=== PATIENT | female | born 1995 | race Caucasian/White ===

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

== ENCOUNTER 2019-10-20 22:36 | Inpatient (IN) | payer OTHER ==
[2019-10-20] MEDS ORDERED: SODIUM CHLORIDE 0.9% 1,000 ML IV STA ×2 (23:13→23:40)
[2019-10-20] MEDS ORDERED: ONDANSETRON 4 MG/2 ML VIAL IVP STA (23:13)
[2019-10-20] MEDS ORDERED: MORPHINE SULFATE 4 MG/ML SYRINGE IVP STA (23:15)
[2019-10-20 23:19] LABS: Glucose,Whole Blood 139 mg/dL (75-99)
[2019-10-20 23:26] LABS: Basophils # (A) 0.1 k/uL (0-0.2); Basophils % (A) 0 %; Eosinophils # (A) 0.1 k/uL (0-0.7); Eosinophils % (A) 0 %; HCT 45.8 % (34.0-46.0); HGB 14.7 gm/dL (11.4-16.0); Lymphocytes # (A) 2.2 k/uL (1.0-4.8); Lymphocytes % (A) 13 %; MCH 28.9 pg (25.0-35.0); MCV 90.1 fL (80.0-100.0); Mean Platelet Volume 8.1; Monocytes # (A) 0.6 k/uL (0-1.0); Monocytes % (A) 4 %; Neutrophils # (A) 13.1 k/uL (1.3-7.7); Neutrophils % (A) 80 %; Platelet Count 372 k/uL (150-450); RBC 5.08 m/uL (3.80-5.40); RDW 14.4 % (11.5-15.5); WBC 16.4 k/uL (3.8-10.6)
--- NOTE | 2019-10-20 23:26 | ED ---
General Adult HPI - General Source: patient, family Mode of arrival: ambulatory Limitations: no limitations <Moses Topete - Last Filed: 10/21/19 00:16> <Carlyle Trejo - Last Filed: 10/24/19 05:05> - General Chief complaint: Nausea/Vomiting/Diarrhea Stated complaint: vomiting Time Seen by Provider: 10/20/19 23:04 - History of Present Illness Initial comments: Patient is a 23-year-old female presenting to the emergency department with a chief complaint of abdominal pain. Patient reports ongoing epigastric abdominal pain for the past several months. Patient reports she saw her primary care who ordered an ultrasound of the abdomen but is yet to be performed. Patient reports typically her pain comes on and off in the epigastric region but today has been constant with continuous nausea and multiple episodes of vomiting. States she has been having difficulty keeping food down over the last several we eks. Denies any urinary or vaginal symptoms. Denies any diarrhea. Denies hematuria, hematochezia or melena. She is not aware if the pain is related to by mouth intake. (Moses Topete) - Related Data Home Medications Medication Instructions Recorded Confirmed Ergocalciferol [Vitamin D2] 50,000 unit PO Q7D 10/21/19 10/21/19 Escitalopram [Lexapro] 10 mg PO DAILY 10/21/19 10/21/19 Norgestimate-Ethinyl Estradiol 1 tab PO DAILY 10/21/19 10/21/19 [Tri-Sprintec Tablet] Omeprazole [PriLOSEC] 40 mg PO DAILY 10/21/19 10/21/19 Allergies Allergy/AdvReac Type Severity Reaction Status Date / Time No Known Allergies Allergy Verified 10/21/19 08:46 Review of Systems ROS Other: All systems not noted in ROS Statement are negative. <Moses Topete - Last Filed: 10/21/19 00:16> ROS Other: All systems not noted in ROS Statement are negative. <Carlyle Trejo - Last Filed: 10/24/19 05:05> ROS Statement: Those systems with pertinent positive or pertinent negative responses have been documented in the HPI. Past Medical History Past Medical History: No Reported History History of Any Multi-Drug Resistant Organisms: None Reported Past Surgical History: No Surgical Hx Reported Past Psychological History: No Psychological Hx Reported Smoking Status: Never smoker Past Alcohol Use History: None Reported Past Drug Use History: None Reported <Moses Topete - Last Filed: 10/21/19 00:16> General Exam Limitations: no limitations General appearance: alert, in no apparent distress Head exam: Present: atraumatic, normocephalic, normal inspection Eye exam: Present: normal appearance, PERRL, EOMI Pupils: Present: normal accommodation Neck exam: Present: normal inspection, full ROM Respiratory exam: Present: normal lung sounds bilaterally Cardiovascular Exam: Present: regular rate, normal rhythm, normal heart sounds GI/Abdominal exam: Present: soft, tenderness (Right upper quadrant abdominal pain). Absent: distended, guarding Extremities exam: Present: normal inspection, full ROM Back exam: Present: normal inspection, full ROM. Absent: CVA tenderness (R), CVA tenderness (L) Neurological exam: Present: alert, oriented X3 Psychiatric exam: Present: normal affect, normal mood Skin exam: Present: warm, dry, intact, normal color <Moses Topete - Last Filed: 10/21/19 00:16> Course Vital Signs 10/20/19 10/20/19 10/21/19 22:45 23:49 00:56 Temperature 98.4 F 98 F Pulse Rate 74 76 80 Respiratory 18 18 16 Rate Blood Pressure 154/99 138/68 129/81 O2 Sat by Pulse 99 99 99 Oximetry EKG Findings - EKG Comments: EKG Findings:: Sinus arrhythmia. Ventricular rate 89, NH 134, QRS 76, QTc 442. <Moses Topete - Last Filed: 10/21/19 00:16> Medical Decision Making - Lab Data Result diagrams: 10/20/19 23:09 10/20/19 23:09 <Moses Topete - Last Filed: 10/21/19 00:16> - Lab Data Result diagrams: 10/22/19 09:49 10/23/19 09:45 <Carlyle Trejo - Last Filed: 10/24/19 05:05> - Medical Decision Making Patient is a 23-year-old female presenting to emergency Department with a chief complaint of abdominal pain. Physical examination patient appear to be in mild distress with nausea and multiple episodes of vomiting. On exam patient does appear to have right upper quadrant epigastric tenderness but a negative Roberts sign. CBC shows leukocytosis. Patient does have a lactate of 5.0 which is suspect is secondary to the multiple episodes of vomiting. She is not able to keep any fluids down. Dry mucous membranes. CMP shows elevated liver enzymes. Ultrasound shows mild gallbladder wall thickening along with multiple large gallstones. Common bile duct thickening also noted but no obvious obstruction. Patient given 1 g or Rocephin, fluids, antiemetics and analgesia. On reevaluation patient reports improvement in symptoms. Case discussed with . Medical physician is Dr.Morey RAHMAN on consult. (Moses Topete) I saw this patient in conjunction with the physician triage assistant. I performed independent history and physical exam. Agree with case management. (Carlyle Trejo) - Lab Data Lab Results 10/20/19 10/20/19 10/20/19 Range/Units 23:08 23:09 23:09 WBC 16.4 H (3.8-10.6) k/uL RBC 5.08 (3.80-5.40) m/uL Hgb 14.7 (11.4-16.0) gm/dL Hct 45.8 (34.0-46.0) % MCV 90.1 (80.0-100.0) fL MCH 28.9 (25.0-35.0) pg MCHC 32.0 (31.0-37.0) g/dL RDW 14.4 (11.5-15.5) % Plt Count 372 (150-450) k/uL Neutrophils % 80 % Lymphocytes % 13 % Monocytes % 4 % Eosinophils % 0 % Basophils % 0 % Neutrophils # 13.1 H (1.3-7.7) k/uL Lymphocytes # 2.2 (1.0-4.8) k/uL Monocytes # 0.6 (0-1.0) k/uL Eosinophils # 0.1 (0-0.7) k/uL Basophils # 0.1 (0-0.2) k/uL PT (9.0-12.0) sec INR (<1.2) APTT (22.0-30.0) sec Sodium 139 (137-145) mmol/L Potassium 3.9 (3.5-5.1) mmol/L Chloride 106 (98-107) mmol/L Carbon Dioxide 16 L (22-30) mmol/L Anion Gap 17 mmol/L BUN 5 L (7-17) mg/dL Creatinine 0.65 (0.52-1.04) mg/dL Est GFR (CKD-EPI)AfAm >90 (>60 ml/min/1.73 sqM) Est GFR (CKD-EPI)NonAf >90 (>60 ml/min/1.73 sqM) Glucose 142 H (74-99) mg/dL POC Glucose (mg/dL) 139 H (75-99) mg/dL POC Glu Elderly Sitter ID Giselle Solorzano Lactic Ac Sepsis Rflx Plasma Lactic Acid Luis (0.7-2.0) mmol/L Calcium 10.5 H (8.4-10.2) mg/dL Total Bilirubin 0.6 (0.2-1.3) mg/dL AST 79 H (14-36) U/L ALT 104 H (4-34) U/L Alkaline Phosphatase 130 H (38-126) U/L Total Protein 8.6 H (6.3-8.2) g/dL Albumin 4.9 (3.5-5.0) g/dL Lipase 154 (23-300) U/L Urine Color Urine Appearance (Clear) Urine pH (5.0-8.0) Ur Specific [place] (1.001-1.035) Urine Protein (Negative) Urine Glucose (UA) (Negative) Urine Ketones (Negative) Urine Blood (Negative) Urine Nitrite (Negative) Urine Bilirubin (Negative) Urine Urobilinogen (<2.0) mg/dL Ur Leukocyte Esterase (Negative) Urine RBC (0-5) /hpf Urine WBC (0-5) /hpf Ur Squamous Epith Cells (0-4) /hpf Urine Bacteria (None) /hpf Urine Mucus (None) /hpf Urine HCG, Qual (Not Detectd) Coronavirus (PCR) (Not Detectd) Heterophile Antibody (Negative) 10/20/19 10/20/19 10/20/19 Range/Units 23:09 23:09 23:09 WBC (3.8-10.6) k/uL RBC (3.80-5.40) m/uL Hgb (11.4-16.0) gm/dL Hct (34.0-46.0) % MCV (80.0-100.0) fL MCH (25.0-35.0) pg MCHC (31.0-37.0) g/dL RDW (11.5-15.5) % Plt Count (150-450) k/uL Neutrophils % % Lymphocytes % % Monocytes % % Eosinophils % % Basophils % % Neutrophils # (1.3-7.7) k/uL Lymphocytes # (1.0-4.8) k/uL Monocytes # (0-1.0) k/uL Eosinophils # (0-0.7) k/uL Basophils # (0-0.2) k/uL PT 9.4 (9.0-12.0) sec INR 0.9 (<1.2) APTT 20.6 L (22.0-30.0) sec Sodium (137-145) mmol/L Potassium (3.5-5.1) mmol/L Chloride (98-107) mmol/L Carbon Dioxide (22-30) mmol/L Anion Gap mmol/L BUN (7-17) mg/dL Creatinine (0.52-1.04) mg/dL Est GFR (CKD-EPI)AfAm (>60 ml/min/1.73 sqM) Est GFR (CKD-EPI)NonAf (>60 ml/min/1.73 sqM) Glucose (74-99) mg/dL POC Glucose (mg/dL) (75-99) mg/dL POC Glu Elderly Sitter ID Lactic Ac Sepsis Rflx Plasma Lactic Acid Luis 5.0 H* (0.7-2.0) mmol/L Calcium (8.4-10.2) mg/dL Total Bilirubin (0.2-1.3) mg/dL AST (14-36) U/L ALT (4-34) U/L Alkaline Phosphatase (38-126) U/L Total Protein (6.3-8.2) g/dL Albumin (3.5-5.0) g/dL Lipase (23-300) U/L Urine Color Urine Appearance (Clear) Urine pH (5.0-8.0) Ur Specific [place] (1.001-1.035) Urine Protein (Negative) Urine Glucose (UA) (Negative) Urine Ketones (Negative) Urine Blood (Negative) Urine Nitrite (Negative) Urine Bilirubin (Negative) Urine Urobilinogen (<2.0) mg/dL Ur Leukocyte Esterase (Negative) Urine RBC (0-5) /hpf Urine WBC (0-5) /hpf Ur Squamous Epith Cells (0-4) /hpf Urine Bacteria (None) /hpf Urine Mucus (None) /hpf Urine HCG, Qual (Not Detectd) Coronavirus (PCR) (Not Detectd) Heterophile Antibody Negative (Negative) 10/20/19 10/21/19 10/21/19 Range/Units 23:37 00:21 00:21 WBC (3.8-10.6) k/uL RBC (3.80-5.40) m/uL Hgb (11.4-16.0) gm/dL Hct (34.0-46.0) % MCV (80.0-100.0) fL MCH (25.0-35.0) pg MCHC (31.0-37.0) g/dL RDW (11.5-15.5) % Plt Count (150-450) k/uL Neutrophils % % Lymphocytes % % Monocytes % % Eosinophils % % Basophils % % Neutrophils # (1.3-7.7) k/uL Lymphocytes # (1.0-4.8) k/uL Monocytes # (0-1.0) k/uL Eosinophils # (0-0.7) k/uL Basophils # (0-0.2) k/uL PT (9.0-12.0) sec INR (<1.2) APTT (22.0-30.0) sec Sodium (137-145) mmol/L Potassium (3.5-5.1) mmol/L Chloride (98-107) mmol/L Carbon Dioxide (22-30) mmol/L Anion Gap mmol/L BUN (7-17) mg/dL Creatinine (0.52-1.04) mg/dL Est GFR (CKD-EPI)AfAm (>60 ml/min/1.73 sqM) Est GFR (CKD-EPI)NonAf (>60 ml/min/1.73 sqM) Glucose (74-99) mg/dL POC Glucose (mg/dL) (75-99) mg/dL POC Glu Elderly Sitter ID Lactic Ac Sepsis Rflx Y Plasma Lactic Acid Luis (0.7-2.0) mmol/L Calcium (8.4-10.2) mg/dL Total Bilirubin (0.2-1.3) mg/dL AST (14-36) U/L ALT (4-34) U/L Alkaline Phosphatase (38-126) U/L Total Protein (6.3-8.2) g/dL Albumin (3.5-5.0) g/dL Lipase (23-300) U/L Urine Color Yellow Urine Appearance Cloudy H (Clear) Urine pH 7.0 (5.0-8.0) Ur Specific [place] 1.012 (1.001-1.035) Urine Protein Trace H (Negative) Urine Glucose (UA) Negative (Negative) Urine Ketones 2+ H (Negative) Urine Blood Trace H (Negative) Urine Nitrite Positive H (Negative) Urine Bilirubin Negative (Negative) Urine Urobilinogen <2.0 (<2.0) mg/dL Ur Leukocyte Esterase Trace H (Negative) Urine RBC 1 (0-5) /hpf Urine WBC 4 (0-5) /hpf Ur Squamous Epith Cells 5 H (0-4) /hpf Urine Bacteria Rare H (None) /hpf Urine Mucus Few H (None) /hpf Urine HCG, Qual Not Detected (Not Detectd) Coronavirus (PCR) (Not Detectd) Heterophile Antibody (Negative) 10/21/19 10/21/19 Range/Units 00:34 00:41 WBC (3.8-10.6) k/uL RBC (3.80-5.40) m/uL Hgb (11.4-16.0) gm/dL Hct (34.0-46.0) % MCV (80.0-100.0) fL MCH (25.0-35.0) pg MCHC (31.0-37.0) g/dL RDW (11.5-15.5) % Plt Count (150-450) k/uL Neutrophils % % Lymphocytes % % Monocytes % % Eosinophils % % Basophils % % Neutrophils # (1.3-7.7) k/uL Lymphocytes # (1.0-4.8) k/uL Monocytes # (0-1.0) k/uL Eosinophils # (0-0.7) k/uL Basophils # (0-0.2) k/uL PT (9.0-12.0) sec INR (<1.2) APTT (22.0-30.0) sec Sodium (137-145) mmol/L Potassium (3.5-5.1) mmol/L Chloride (98-107) mmol/L Carbon Dioxide (22-30) mmol/L Anion Gap mmol/L BUN (7-17) mg/dL Creatinine (0.52-1.04) mg/dL Est GFR (CKD-EPI)AfAm (>60 ml/min/1.73 sqM) Est GFR (CKD-EPI)NonAf (>60 ml/min/1.73 sqM) Glucose (74-99) mg/dL POC Glucose (mg/dL) (75-99) mg/dL POC Glu Elderly Sitter ID Lactic Ac Sepsis Rflx Plasma Lactic Acid Luis 1.4 (0.7-2.0) mmol/L Calcium (8.4-10.2) mg/dL Total Bilirubin (0.2-1.3) mg/dL AST (14-36) U/L ALT (4-34) U/L Alkaline Phosphatase (38-126) U/L Total Protein (6.3-8.2) g/dL Albumin (3.5-5.0) g/dL Lipase (23-300) U/L Urine Color Urine Appearance (Clear) Urine pH (5.0-8.0) Ur Specific [place] (1.001-1.035) Urine Protein (Negative) Urine Glucose (UA) (Negative) Urine Ketones (Negative) Urine Blood (Negative) Urine Nitrite (Negative) Urine Bilirubin (Negative) Urine Urobilinogen (<2.0) mg/dL Ur Leukocyte Esterase (Negative) Urine RBC (0-5) /hpf Urine WBC (0-5) /hpf Ur Squamous Epith Cells (0-4) /hpf Urine Bacteria (None) /hpf Urine Mucus (None) /hpf Urine HCG, Qual (Not Detectd) Coronavirus (PCR) Not Detected (Not Detectd) Heterophile Antibody (Negative) Disposition Is patient prescribed a controlled substance at d/c from ED?: No Time of Disposition: 00:34 <Moses Topete - Last Filed: 10/21/19 00:16> <Carlyle Trejo - Last Filed: 10/24/19 05:05> Clinical Impression: Cholecystitis, Cholelithiasis Disposition: ADMITTED IP TO THIS HOSP Condition: Stable
[2019-10-20 23:33] LABS: ALT 104 U/L (4-34); AST 79 U/L (14-36); African American GFR (CKD) >90 (>60 ml/min/1.73 sqM); Albumin 4.9 g/dL (3.5-5.0); Alkaline Phosphatase 130 U/L (38-126); Anion Gap 17 mmol/L; Blood Urea Nitrogen 5 mg/dL (7-17); Calcium 10.5 mg/dL (8.4-10.2); Carbon Dioxide 16 mmol/L (22-30); Chloride 106 mmol/L (98-107); Glucose 142 mg/dL (74-99); Non-African American GFR(CKD) >90 (>60 ml/min/1.73 sqM); Potassium 3.9 mmol/L (3.5-5.1); Sodium 139 mmol/L (137-145); Total Bilirubin 0.6 mg/dL (0.2-1.3); Total Protein 8.6 g/dL (6.3-8.2)
[2019-10-20] MEDS ORDERED: cefTRIAXone IN SWFI 1,000 MG/10 ML SYRINGE IVP STA (23:41)
--- NOTE | 2019-10-21 00:05 | US ---
EXAMINATION TYPE: US abdomen limited DATE OF EXAM: 10/20/2019 COMPARISON: NONE CLINICAL HISTORY: r/o cholecystitis, nausea and vomiting EXAM MEASUREMENTS: Liver Length: 12.5 cm Gallbladder Wall: 0.5 cm CBD: 1.5 cm Right Kidney: 11.0 x 3.9 x 4.2 cm Pancreas: Obscured by bowel gas Liver: wnl Gallbladder: cholelithiasis, wall thickening Evidence for sonographic Roberts's sign: no CBD: grossly dilated Right Kidney: wnl IMPRESSION: There are numerous large gallstones. Mild gallbladder wall thickening suggestive of joslyn cystitis. Dilated common bile duct but no significant dilation of the intrahepatic bile ducts. This i s more consistent with chronic gallbladder dysfunction. Distal common bile duct obstruction not entir wilian excluded.
[2019-10-21 00:36] LABS: Appearance,Urine Cloudy (Clear); Bacteria,Urine Rare /hpf; Bilirubin,Urine Negative (Negative); Blood,Urine Trace (Negative); Color,Urine Yellow; Glucose,Urine (UA) Negative (Negative); Ketones,Urine 2+ (Negative); Leukocyte Esterase,Urine Trace (Negative); Mucus,Urine Few /hpf; Nitrite,Urine Positive (Negative); Protein,Urine Trace (Negative); RBC,Urine 1 /hpf (0-5); Specific Gravity,Urine 1.012 (1.001-1.035); Squamous Epithelial Cell,Urine 5 /hpf (0-4); Urobilinogen,Urine <2.0 mg/dL (<2.0); WBC,Urine 4 /hpf (0-5)
[2019-10-21] MEDS ORDERED: NALOXONE 0.4 MG/ML 1 ML VIAL IV PRN (00:37)
[2019-10-21] MEDS: SODIUM CHLORIDE 0.9% 1,000 ML IV SCH (00:45)
[2019-10-21 00:50] LABS: INR 0.9 (<1.2); Prothrombin Time 9.4 sec (9.0-12.0)
[2019-10-21 01:13] LABS: Partial Thromboplastin Time 20.6 sec (22.0-30.0)
[2019-10-21] MEDS: MORPHINE SULFATE 4 MG/ML SYRINGE IV PRN ×4 (02:04→20:50)
--- NOTE | 2019-10-21 10:24 | P.GSHP ---
History of Present Illness H&P Date: 10/21/19 Chief Complaint: Abdominal pain, nausea and vomiting The patient is a 23-year-old female that's been having intermittent abdominal discomfort and chest pressure for the last several months.She will get pressure in her chest when this happens. Yesterday she began having severe nausea and vomiting and was unable to keep anything down. She admits to episodes where family members have noticed that her eyes are yellow. She will also admit to tea-colored urine.Denies blood in the stool or dark tarry stool. Denies fever or chills. Denies family history of biliary disease. - Review of Systems All systems: negative Past Medical History Past Medical History: No Reported History History of Any Multi-Drug Resistant Organisms: None Reported Past Surgical History: No Surgical Hx Reported Additional Past Surgical History / Comment(s): ureter stent placed for obstruction Past Anesthesia/Blood Transfusion Reactions: No Reported Reaction Past Psychological History: No Psychological Hx Reported Smoking Status: Never smoker Past Alcohol Use History: None Reported Past Drug Use History: None Reported Medications and Allergies Home Medications Medication Instructions Recorded Confirmed Type Ergocalciferol [Vitamin D2] 50,000 unit PO Q7D 10/21/19 10/21/19 History Escitalopram [Lexapro] 10 mg PO DAILY 10/21/19 10/21/19 History Norgestimate-Ethinyl Estradiol 1 tab PO DAILY 10/21/19 10/21/19 History [Tri-Sprintec Tablet] Omeprazole [PriLOSEC] 40 mg PO DAILY 10/21/19 10/21/19 History Allergies Allergy/AdvReac Type Severity Reaction Status Date / Time No Known Allergies Allergy Verified 10/21/19 08:46 Surgical - Exam Osteopathic Statement: *. No significant issues noted on an osteopathic structural exam other than those noted in the History and Physical/Consult. Vital Signs Temp Pulse Resp BP Pulse Ox 98.4 F 74 18 154/99 99 10/20/19 22:45 10/20/19 22:45 10/20/19 22:45 10/20/19 22:45 10/20/19 22:45 - General well developed, well nourished, no distress - Eyes normal ocular movement, no icteric - Respiratory normal expansion, normal respiratory effort, clear to auscultation - Cardiovascular Rhythm: regular - Abdomen Abdomen: soft, non tender, bowel sounds, no guarding, no rebound, no distended Results - Labs 10/20/19 23:09 10/20/19 23:09 Abnormal Lab Results - Last 24 Hours (Table) 10/20/19 10/20/19 10/20/19 Range/Units 23:08 23:09 23:09 WBC 16.4 H (3.8-10.6) k/uL Neutrophils # 13.1 H (1.3-7.7) k/uL APTT (22.0-30.0) sec Carbon Dioxide 16 L (22-30) mmol/L BUN 5 L (7-17) mg/dL Glucose 142 H (74-99) mg/dL POC Glucose (mg/dL) 139 H (75-99) mg/dL Plasma Lactic Acid Luis (0.7-2.0) mmol/L Calcium 10.5 H (8.4-10.2) mg/dL AST 79 H (14-36) U/L ALT 104 H (4-34) U/L Alkaline Phosphatase 130 H (38-126) U/L Total Protein 8.6 H (6.3-8.2) g/dL Urine Appearance (Clear) Urine Protein (Negative) Urine Ketones (Negative) Urine Blood (Negative) Urine Nitrite (Negative) Ur Leukocyte Esterase (Negative) Ur Squamous Epith Cells (0-4) /hpf Urine Bacteria (None) /hpf Urine Mucus (None) /hpf 10/20/19 10/20/19 10/21/19 Range/Units 23:09 23:09 00:21 WBC (3.8-10.6) k/uL Neutrophils # (1.3-7.7) k/uL APTT 20.6 L (22.0-30.0) sec Carbon Dioxide (22-30) mmol/L BUN (7-17) mg/dL Glucose (74-99) mg/dL POC Glucose (mg/dL) (75-99) mg/dL Plasma Lactic Acid Luis 5.0 H* (0.7-2.0) mmol/L Calcium (8.4-10.2) mg/dL AST (14-36) U/L ALT (4-34) U/L Alkaline Phosphatase (38-126) U/L Total Protein (6.3-8.2) g/dL Urine Appearance Cloudy H (Clear) Urine Protein Trace H (Negative) Urine Ketones 2+ H (Negative) Urine Blood Trace H (Negative) Urine Nitrite Positive H (Negative) Ur Leukocyte Esterase Trace H (Negative) Ur Squamous Epith Cells 5 H (0-4) /hpf Urine Bacteria Rare H (None) /hpf Urine Mucus Few H (None) /hpf Diabetes panel 10/20/19 Range/Units 23:09 Sodium 139 (137-145) mmol/L Potassium 3.9 (3.5-5.1) mmol/L Chloride 106 (98-107) mmol/L Carbon Dioxide 16 L (22-30) mmol/L BUN 5 L (7-17) mg/dL Creatinine 0.65 (0.52-1.04) mg/dL Glucose 142 H (74-99) mg/dL Calcium 10.5 H (8.4-10.2) mg/dL AST 79 H (14-36) U/L ALT 104 H (4-34) U/L Alkaline Phosphatase 130 H (38-126) U/L Total Protein 8.6 H (6.3-8.2) g/dL Albumin 4.9 (3.5-5.0) g/dL Calcium panel 10/20/19 Range/Units 23:09 Calcium 10.5 H (8.4-10.2) mg/dL Albumin 4.9 (3.5-5.0) g/dL Pituitary panel 10/20/19 Range/Units 23:09 Sodium 139 (137-145) mmol/L Potassium 3.9 (3.5-5.1) mmol/L Chloride 106 (98-107) mmol/L Carbon Dioxide 16 L (22-30) mmol/L BUN 5 L (7-17) mg/dL Creatinine 0.65 (0.52-1.04) mg/dL Glucose 142 H (74-99) mg/dL Calcium 10.5 H (8.4-10.2) mg/dL Adrenal panel 10/20/19 Range/Units 23:09 Sodium 139 (137-145) mmol/L Potassium 3.9 (3.5-5.1) mmol/L Chloride 106 (98-107) mmol/L Carbon Dioxide 16 L (22-30) mmol/L BUN 5 L (7-17) mg/dL Creatinine 0.65 (0.52-1.04) mg/dL Glucose 142 H (74-99) mg/dL Calcium 10.5 H (8.4-10.2) mg/dL Total Bilirubin 0.6 (0.2-1.3) mg/dL AST 79 H (14-36) U/L ALT 104 H (4-34) U/L Alkaline Phosphatase 130 H (38-126) U/L Total Protein 8.6 H (6.3-8.2) g/dL Albumin 4.9 (3.5-5.0) g/dL - Imaging US - abdomen: report reviewed Assessment and Plan (1) History of jaundice Current Visit: Yes Status: Acute Code(s): Z87.898 - PERSONAL HISTORY OF OTHER SPECIFIED CONDITIONS SNOMED Code(s): 251940481 (2) Cholecystitis Current Visit: Yes Status: Acute Code(s): K81.9 - CHOLECYSTITIS, UNSPECIFIED SNOMED Code(s): 91488197 (3) Cholelithiasis Current Visit: Yes Status: Acute Code(s): K80.20 - CALCULUS OF GALLBLADDER W/O CHOLECYSTITIS W/O OBSTRUCTION SNOMED Code(s): 462435260 Plan: The patient likely has been having intermittent choledocholithiasis. Her common bile duct is dilated but her bilirubin yesterday was normal. Get a GI consult to see whether she should have a preoperative MRCP or ERCP. Otherwise I would do a laparoscopic cholecystectomy with intraoperative cholangiogram. Further recommendations to follow.
[2019-10-21] MEDS: ONDANSETRON 4 MG/2 ML VIAL IVP PRN (11:00)
[2019-10-21] MEDS ORDERED: TRIMETHOBENZAMIDE 100 MG/ML 2 ML VIAL IM PRN (19:26)
--- NOTE | 2019-10-21 19:39 | P.CONS ---
History of Present Illness - Reason for Consult Consult date: 10/21/19 Abdominal pain, dilated common bile duct Requesting physician: Samreen Chavez - Chief Complaint Abdominal pain - History of Present Illness Pleasant 23-year-old female with a medical history significant for reflux in the past who presented due to abdominal discomfort and chest pressure. She reports that the pain has been going on for the past 4 months. It occurs in the ep igastric region of her abdomen and will last all day when it occurs she describes it as sharp and worse in the morning and with eating. She denies any change in bowel habits. She had ultrasound on presentation with findings of colon wall thickening, gallstones and a markedly dilated common bile duct at 1.5 cm. Liver enzymes were only mildly elevated with total bilirubin 0.6, alkaline phosphatase 130, AST 79 and ALT 104. Review of Systems REVIEW OF SYSTEMS: CONSTITUTIONAL: Denies any fevers, chills, weight change or fatigue. CARDIOVASCULAR: Denies any chest pain, palpitations high or low blood pressures RESPIRATORY: Denies any shortness of breath, hemoptysis or cough. GENITOURINARY: No dysuria or hematuria. MUSCULOSKELETAL: No weakness reported. SKIN: Denies any new rashes or lesions, jaundice or pallor. PSYCHIATRIC: Denies any depression or anxiety. NEUROLOGY: Denies headache, denies any new focal deficits. EARS/NOSE/THROAT: No recent hearing change, congestion, nasal discharge or sore throat. EYES: No pain in eyes, discharge or change in vision. GASTROINTESTINAL: As per HPI. Past Medical History Past Medical History: No Reported History Additional Past Medical History / Comment(s): GERD History of Any Multi-Drug Resistant Organisms: None Reported Past Surgical History: No Surgical Hx Reported Additional Past Surgical History / Comment(s): ureter stent placed for o bstruction Past Anesthesia/Blood Transfusion Reactions: No Reported Reaction Past Psychological History: No Psychological Hx Reported Smoking Status: Never smoker Past Alcohol Use History: None Reported Past Drug Use History: None Reported Additional History: Family history: Reviewed with the patient noncontributory to current medical presentation Medications and Allergies Home Medications Medication Instructions Recorded Confirmed Type Ergocalciferol [Vitamin D2] 50,000 unit PO Q7D 10/21/19 10/21/19 History Escitalopram [Lexapro] 10 mg PO DAILY 10/21/19 10/21/19 History Norgestimate-Ethinyl Estradiol 1 tab PO DAILY 10/21/19 10/21/19 History [Tri-Sprintec Tablet] Omeprazole [PriLOSEC] 40 mg PO DAILY 10/21/19 10/21/19 History Allergies Allergy/AdvReac Type Severity Reaction Status Date / Time No Known Allergies Allergy Verified 10/21/19 08:46 Physical Exam Vitals: Vital Signs Temp Pulse Pulse Resp BP BP Pulse Ox 10/21/19 04:15 98.5 F 71 12 124/74 97 10/21/19 04:01 16 10/21/19 00:56 98 F 80 16 129/81 99 10/20/19 23:49 76 18 138/68 99 10/20/19 22:45 98.4 F 74 18 154/99 99 Intake and Output 10/20/19 10/21/19 10/21/19 22:59 06:59 14:59 Output Total 300 Balance -300 Output: Urine 100 Emesis 200 Other: Voiding Method Toilet # Voids 1 Weight 63.503 kg 63.503 kg On physical examination, patient appears comfortable in no apparent distress. HEAD: Normocephalic, atraumatic. EYES: No scleral icterus. No conjunctival injection. MOUTH: No lesions, tongue midline. NECK: Trachea midline, no gross abnormalities. CHEST: Clear to auscultation with no wheezing or rhonchi appreciated. HEART: Regular rate and rhythm. ABDOMEN: Soft, mildly tender to palpation. Bowel sounds are positive. No organomegaly. No guarding or rigidity. EXTREMITIES: No pedal edema. SKIN: No rashes, no jaundice. NEUROLOGIC: Alert and oriented x3. No focal deficits. Results CBC & Chem 7: 10/20/19 23:09 10/20/19 23:09 Labs: Abnormal Lab Results - Last 24 Hours (Table) 10/20/19 10/20/19 10/20/19 Range/Units 23:08 23:09 23:09 WBC 16.4 H (3.8-10.6) k/uL Neutrophils # 13.1 H (1.3-7.7) k/uL APTT (22.0-30.0) sec Carbon Dioxide 16 L (22-30) mmol/L BUN 5 L (7-17) mg/dL Glucose 142 H (74-99) mg/dL POC Glucose (mg/dL) 139 H (75-99) mg/dL Plasma Lactic Acid Luis (0.7-2.0) mmol/L Calcium 10.5 H (8.4-10.2) mg/dL AST 79 H (14-36) U/L ALT 104 H (4-34) U/L Alkaline Phosphatase 130 H (38-126) U/L Total Protein 8.6 H (6.3-8.2) g/dL Urine Appearance (Clear) Urine Protein (Negative) Urine Ketones (Negative) Urine Blood (Negative) Urine Nitrite (Negative) Ur Leukocyte Esterase (Negative) Ur Squamous Epith Cells (0-4) /hpf Urine Bacteria (None) /hpf Urine Mucus (None) /hpf 10/20/19 10/20/19 10/21/19 Range/Units 23:09 23:09 00:21 WBC (3.8-10.6) k/uL Neutrophils # (1.3-7.7) k/uL APTT 20.6 L (22.0-30.0) sec Carbon Dioxide (22-30) mmol/L BUN (7-17) mg/dL Glucose (74-99) mg/dL POC Glucose (mg/dL) (75-99) mg/dL Plasma Lactic Acid Luis 5.0 H* (0.7-2.0) mmol/L Calcium (8.4-10.2) mg/dL AST (14-36) U/L ALT (4-34) U/L Alkaline Phosphatase (38-126) U/L Total Protein (6.3-8.2) g/dL Urine Appearance Cloudy H (Clear) Urine Protein Trace H (Negative) Urine Ketones 2+ H (Negative) Urine Blood Trace H (Negative) Urine Nitrite Positive H (Negative) Ur Leukocyte Esterase Trace H (Negative) Ur Squamous Epith Cells 5 H (0-4) /hpf Urine Bacteria Rare H (None) /hpf Urine Mucus Few H (None) /hpf US - abdomen: report reviewed (Ultrasound of the abdomen with findings of cholelithiasis, gallbladder wall thickening and a 1.5 cm common bile duct) Assessment and Plan (1) Cholelithiasis Narrative/Plan: 23-year-old female who presented to the hospital due to complaints of abdominal pain occurring over the past few months described as severe and in the epigastric region of her abdomen. Liver enzymes only mildly elevated on presentation with a total bilirubin 0.6, alkaline phosphatase 130, AST 79 and ALT 104. She does report that she has intermittently yellowing of skin in the past. Ultrasound of the abdomen showed gallbladder wall thickening, cholelithiasis and a 1.5 cm common bile duct. Plan is for surgical intervention tomorrow with intraoperative cholangiogram. Current Visit: Yes Status: Acute Code(s): K80.20 - CALCULUS OF GALLBLADDER W/O CHOLECYSTITIS W/O OBSTRUCTION SNOMED Code(s): 046056781 (2) Cholecystitis Current Visit: Yes Status: Acute Code(s): K81.9 - CHOLECYSTITIS, UNSPECIFIED SNOMED Code(s): 76004695 (3) History of jaundice Current Visit: Yes Status: Acute Code(s): Z87.898 - PERSONAL HISTORY OF OTHER SPECIFIED CONDITIONS SNOMED Code(s): 689761558 Plan: Supportive care Okay for diet as tolerated Nothing by mouth after midnight Case discussed with the surgical service and plan is for cholecystectomy with intraoperative cholangiogram for evaluation of the common bile duct and to rule out choledocholithiasis Tigan added as needed for breakthrough nausea Toradol added as needed for breakthrough pain Pepcid twice a day added for reflux Thank you for allowing us to participate
[2019-10-21] MEDS: FAMOTIDINE 20 MG/2 ML VIAL IV SCH (20:17)
[2019-10-21] MEDS: KETOROLAC 30 MG/ML 1 ML VIAL IVP PRN (20:19)
[2019-10-22] MEDS: SODIUM CHLORIDE 0.9% 1,000 ML IV SCH ×2 (03:29→20:52)
[2019-10-22] MEDS: MORPHINE SULFATE 4 MG/ML SYRINGE IV PRN ×3 (06:45→21:48)
[2019-10-22] MEDS: ONDANSETRON 4 MG/2 ML VIAL IVP PRN ×2 (07:53→16:41)
[2019-10-22] MEDS: FAMOTIDINE 20 MG/2 ML VIAL IV SCH ×2 (07:53→19:20)
[2019-10-22 09:59] LABS: HCT 42.4 % (34.0-46.0); HGB 13.3 gm/dL (11.4-16.0); MCH 29.1 pg (25.0-35.0); MCHC 31.4 g/dL (31.0-37.0); MCV 92.7 fL (80.0-100.0); Mean Platelet Volume 7.8; Platelet Count 305 k/uL (150-450); RBC 4.57 m/uL (3.80-5.40); RDW 14.6 % (11.5-15.5); WBC 12.9 k/uL (3.8-10.6)
[2019-10-22 10:21] LABS: ALT 192 U/L (4-34); AST 120 U/L (14-36); African American GFR (CKD) >90 (>60 ml/min/1.73 sqM); Albumin 4.4 g/dL (3.5-5.0); Alkaline Phosphatase 85 U/L (38-126); Anion Gap 15 mmol/L; Blood Urea Nitrogen 9 mg/dL (7-17); Calcium 9.6 mg/dL (8.4-10.2); Carbon Dioxide 18 mmol/L (22-30); Chloride 105 mmol/L (98-107); Glucose 62 mg/dL (74-99); Non-African American GFR(CKD) >90 (>60 ml/min/1.73 sqM); Sodium 138 mmol/L (137-145); Total Bilirubin 0.5 mg/dL (0.2-1.3); Total Protein 7.9 g/dL (6.3-8.2)
--- NOTE | 2019-10-22 14:57 | PN ---
PROGRESS NOTE DATE OF DICTATION: 10/22/2019 Patient is a 23-year-old pleasant white female admitted to the hospital with epigastric and right upper quadrant abdominal pain and subsequently diagnosed with gallstones. She was noted to have mild elevation of serum transaminases with AST at 79, ALT 104. Dr. Conner saw her in consultation and the plan was for Dr. Chavez to proceed with gallbladder surgery with intra op cholangiogram today that is scheduled for 1:00 pm the patient in the meantime is doing well. She had an episode of epigastric discomfort with nausea, vomiting. This morning but since then she is doing much better. No labs. She denies any fever, chills, or night sweats. PHYSICAL EXAMINATION: Appears comfortable. VITAL SIGNS: Stable. Blood pressure is 126/84, pulse rate 85, temperature 96.9. HEENT: Examination unremarkable, consulting are pink, sclerae nonicteric.';oral cavity no lesions the auscultation. HEART: Regular rate and rhythm. ABDOMEN: Soft. There was very minimal tenderness in the epigastric area of the abdomen of man. Bowel sounds are positive extremities no pedal edema skin no rashes. NEUROLOGIC: Alert and oriented x3. No focal deficits. LABS: From today AST went up to 120, ALT went up to 192, T bilirubin and alkaline phosphatase are within normal limits. IMPRESSION: 1. This is a lady who was admitted to the hospital with severe epigastric pain associated with nausea, vomiting for the last 2 days' duration. Ultrasound did show evidence of gallstones and mild gallbladder wall thickening suggestive of acute cholecystitis. The patient is scheduled for gallbladder surgery this afternoon with Dr. Chavez. 2. Mild elevation of serum transaminases. Rule out CBD stone. The ultrasound of the abdomen did show mild dilation of the common bile duct. Her serum transaminases slightly increased and at this time possibility of a CBD stone cannot be entirely excluded. RECOMMENDATIONS: 1. Laparoscopic cholecystectomy with cholangiogram and based on the results will consider the patient needs endoscopy intervention at this time. Continue with symptomatic supportive care. 2. Continue with antibiotics. 3. Repeat labs in the morning and will follow with you closely. Thank you for this consultation. MMODL / IJN: [id number] /
[2019-10-22] MEDS ORDERED: LACTATED RINGERS 1,000 ML IV ONE (16:18)
[2019-10-22] MEDS ORDERED: IV FLUID CONTINUATION 1,000 ML IV ONE (16:18)
[2019-10-22] MEDS ORDERED: DEXAMETHASONE SOD PHOS (MDV) 100 MG/10 ML VIAL IVP ONE (16:42)
[2019-10-22] MEDS ORDERED: BUPIVACAIN-EPI 0.25%-1:200,000 30 ML VIAL SQ ONE (17:04)
[2019-10-22] MEDS ORDERED: IOPAMIDOL-370 50ML BTL MISCELLANE ONE (17:23)
--- NOTE | 2019-10-22 17:52 | FL ---
EXAMINATION TYPE: FL cholangiogram operative DATE OF EXAM: 10/22/2019 CLINICAL HISTORY: Acute cholecystitis. TECHNIQUE: Fluoroscopy. COMPARISON: Limited abdominal ultrasound 2 days ago. FINDINGS: Fluoroscopic guidance was provided during intraoperative cholangiogram procedure performed by Dr. Chavez. A total of 26 seconds of fluoroscopic time was utilized during the procedure and 3 sp ot intraoperative images are acquired. Please refer to operative note for further details as I was no t present nor performed procedure IMPRESSION: As Above.
--- NOTE | 2019-10-22 18:03 | P.OP ---
Date of Procedure: 10/22/19 Preoperative Diagnosis: Cholelithiasis, cholecystitis Postoperative Diagnosis: Cholelithiasis, cholecystitis, choledocholithiasis Procedure(s) Performed: Laparoscopic cholecystectomy with intraoperative cholangiogram Anesthesia: SHA Surgeon: Samreen Chavez Estimated Blood Loss (ml): 5 Pathology: other (Gallbladder) Condition: stable Disposition: PACU Indications for Procedure: The patient presented with acute cholecystitis and symptoms suggestive of intermittent choledocholithiasis Operative Findings: Intraoperative cholangiogram showed no significant drainage into the duodenum with 2 distal common bile duct stones. Description of Procedure: The patient was taken the operative suite where she was prepped and draped in the usual sterile manner under general endotracheal anesthetic. An infraumbilical incision was made. The fascia was grasped and incised. The peritoneum was grasped and incised. A finger sweep was carried out. A balloon trocar was inserted and pneumoperitoneum was established with CO2 gas. Sites a re chosen for accessory trochars needs are placed through small skin incisions. The liver, diaphragm, large and small bowel were grossly normal where they were seen. The gallbladder was somewhat edematous. The fundus was grasped and retracted superiorly. Bassam's pouch was grasped and retracted laterally. The cystic duct was dissected free. It was milked medial to lateral. It was then clamped laterally. A small enterotomy was made on the duct and a cholangiogram catheter was placed. An intraoperative cholangiogram was performed. There was filling of the common bile duct and hepatic radicals. Only very small amount of contrast went into the duodenum. On magnified views there appeared to be 2 stones in the distal common bile duct. The cholangiogram catheter was removed. The cystic duct was doubly clipped medially. The duct was then transected and an additional 0 PDS Endoloop was placed on the cystic duct. The cystic artery was then triply clipped and cut. The gallbladder is dissected free from the liver bed. Small bleeding points were controlled with electrocautery. The gallbladder is placed into a specimen retrieval bag. The liver bed is reexamined and noted to be hemostatic. The excess irrigant was suctioned out. The pneumoperitoneum was suctioned out. The trochars were removed. The specimen retrieval bag was removed. The fascia at the umbilicus was closed with 0 Vicryl. The skin incisions were closed with 4-0 Vicryl in a subcuticular manner. Steri-Strips and dressings were applied. She tolerated the procedure without difficulty and was taken recovery room in satisfactory condition. According to or personnel, all counts were correct.
[2019-10-22] MEDS ORDERED: diphenhydrAMINE 50 MG/ML 1 ML VIAL IVP ONE (18:08)
[2019-10-22] MEDS: HYDROmorphone 0.5 MG/0.5 ML SYRINGE IVP ONE ×2 (18:10→18:50)
[2019-10-22] MEDS: diphenhydrAMINE 50 MG/ML 1 ML VIAL IVP ONE ×2 (18:15→18:52)
[2019-10-22] MEDS: KETOROLAC 30 MG/ML 1 ML VIAL IVP PRN (19:25)
[2019-10-23] MEDS: MORPHINE SULFATE 4 MG/ML SYRINGE IV PRN ×4 (01:34→18:53)
[2019-10-23] MEDS: PANTOPRAZOLE 40 MG TABLET PO SCH (08:18)
[2019-10-23] MEDS: NORGESTIMATE ETHINYL ESTRADIOL PO SCH (08:19)
[2019-10-23] MEDS: FAMOTIDINE 20 MG/2 ML VIAL IV SCH ×2 (08:20→20:51)
[2019-10-23 10:08] LABS: ALT 221 U/L (4-34); AST 172 U/L (14-36); African American GFR (CKD) >90 (>60 ml/min/1.73 sqM); Albumin 3.8 g/dL (3.5-5.0); Alkaline Phosphatase 120 U/L (38-126); Anion Gap 10 mmol/L; Blood Urea Nitrogen 4 mg/dL (7-17); Calcium 9.4 mg/dL (8.4-10.2); Carbon Dioxide 21 mmol/L (22-30); Chloride 105 mmol/L (98-107); Glucose 83 mg/dL (74-99); Non-African American GFR(CKD) >90 (>60 ml/min/1.73 sqM); Sodium 136 mmol/L (137-145); Total Bilirubin 0.9 mg/dL (0.2-1.3); Total Protein 7.1 g/dL (6.3-8.2)
[2019-10-23] MEDS ORDERED: INDOMETHACIN 50MG SUPPOSITORY RECTAL ONE (14:00)
[2019-10-23] MEDS ORDERED: LEVOFLOXACIN 500MG-D5W PMX 500 MG in DEXTROSE/WATER 1 100ML.BAG IVPB SCH (14:00)
[2019-10-23] MEDS: ONDANSETRON 4 MG/2 ML VIAL IVP PRN (15:14)
[2019-10-23] MEDS ORDERED: PROPOFOL 10 MG/ML 20 ML VIAL IV ONE (15:25)
[2019-10-23] MEDS ORDERED: fentaNYL (PF) 50 MCG/ML 2 ML AMP ONE (15:25)
[2019-10-23] MEDS ORDERED: MIDAZOLAM 2 MG/2 ML VIAL ONE (15:25)
[2019-10-23] MEDS ORDERED: LIDOCAINE 1% INJ 10MG/ML (20 ML MDV) ONE (15:25)
[2019-10-23] MEDS ORDERED: GLYCOPYRROLATE 0.2 MG/ML 2 ML VIAL ONE (15:25)
[2019-10-23] MEDS ORDERED: KETAMINE 10 MG/ML 20 ML VIAL ONE (15:25)
[2019-10-23] MEDS ORDERED: IV FLUID CONTINUATION 1,000 ML IV ONE (15:28)
[2019-10-23] MEDS ORDERED: IOPAMIDOL-300 50ML BTL MISCELLANE ONE (15:45)
[2019-10-23] MEDS ORDERED: SODIUM CHLORIDE 0.9% 500 ML 500 ML IV ONE (16:00)
--- NOTE | 2019-10-23 16:21 | P.PCN ---
Date of Procedure: 10/23/19 Procedure(s) Performed: Brief history: Patient is a 22 year-old pleasant lady scheduled for an ERCP as part of evaluation of abdominal pain and elevated serum transaminases for the last 2 days' duration. Rest of the gallbladder done that showed gallstones and she underwent laparoscopic cholecystectomy by Dr. Chavez with intraoperative cholangiogram which revealed 2 filling defects in the distal common bile duct. LFTs are slightly elevated. Procedure performed: ERCP with biliary sphincterotomy, balloon stone extraction and cautery Preoperative diagnoses: CBD stones noted on intraoperative cholangiogram IV sedation per anesthesia: Procedure: After informed consent was obtained from the patient and after the risks benefits and complications including bleeding perforation and pancreatitis explained in detail the patient was brought into the endoscopy unit. The patient was placed in prone position and IV conscious sedation was administered by anesthesia under continuous monitoring. The Olympus side-viewing duodenoscope was then inserted into the mouth and esophagus intubated without any difficulty. The scope was gradually advanced into the stomach and duodenum. The major papilla was identified without any difficulty. Initial cannulation resulted in opacification of the common bile duct appeared dilated to 1.5 cm in diameter with a faint filling defect identified. At this time the catheter was exchanged with a guidewire and a biliary sphincterotome was passed over the guidewire into the distal CBD. At this time a biliary sphincterotomy was performed at 12 o'clock position and was extended to almost 1 cm. At this time a 15 mm balloon was passed over the guidewire, into the proximal CBD and inflated. The bulb balloon was gently withdrawn and there was small amount of sludge that was seen exiting the ampulla. I did not see any obvious stones could be extracted. This maneuver was repeated 3 more times and as the balloon was being sleepy across the ampullary orifice there was small amount of oozing identified. Initially done. An Endo Clip placement but was not successful. I proceeded with cautery at the site of oozing with good hemostasis. The pancreatic duct was not cannulated during the entire procedure. Patient tolerated the procedure well. Impression: 1.Dilated common bile duct measuring 1.5 cm in diameter with a faint filling defect status post biliary sphincterotomy and balloon extraction as described above. 2.Pancreatic duct intentionally not cannulated 3.Mild oozing at the site of biliary sphincterotomy status post cautery as described above with good hemostasis Recommendations: The findings of this examination were discussed with the patie nt as well as a family. She will be started on clear liquid diet and repeat labs in the morning.
[2019-10-23] MEDS: ESCITALOPRAM 10 MG TAB PO SCH (17:17)
--- NOTE | 2019-10-23 17:26 | P.PN ---
Subjective Progress Note Date: 10/23/19 Principal diagnosis: cholecystitis and cholelithiasis The patient underwent ERCP with sphincterotomy today. There was sludge in the common bile duct. On yesterday's intraoperative cholangiogram there was no good flow into the duodenum and there are filling defects seen. The patient is somewhat sleepy from recent anesthetic. Denies nausea or vomiting. Objective - Vital Signs Vital signs: Vital Signs Temp 98.1 F 10/23/19 16:00 Pulse 117 H 10/23/19 17:13 Resp 16 10/23/19 17:13 BP 139/91 10/23/19 17:13 Pulse Ox 94 L 10/23/19 17:13 Intake & Output 10/22/19 10/23/19 10/23/19 18:59 06:59 18:59 Intake Total 550 360 760 Output Total 3 Balance 547 360 760 Intake: IV 550 200 600 Intake, IV Titration 160 160 Amount Sodium Chloride 0.9% 1, 160 160 000 ml @ 20 mls/hr IV . Q24H [facility] Rx#:[id number] Oral 0 Output: Estimated Blood Loss 3 Other: Voiding Method Toilet Toilet # Voids 2 2 - Constitutional Constitutional Comment(s): Somnolent General appearance: Present: cooperative - Gastrointestinal General gastrointestinal: Present: soft - Labs CBC & Chem 7: 10/22/19 09:49 10/23/19 09:45 Labs: Abnormal Lab Results - Last 24 Hours (Table) 10/23/19 Range/Units 09:45 Sodium 136 L (137-145) mmol/L Carbon Dioxide 21 L (22-30) mmol/L BUN 4 L (7-17) mg/dL AST 172 H (14-36) U/L ALT 221 H (4-34) U/L Microbiology - Last 24 Hours (Table) 10/20/19 23:09 Blood Culture - Preliminary Blood No Growth after 48 hours Assessment and Plan (1) History of jaundice Current Visit: Yes Status: Acute Code(s): Z87.898 - PERSONAL HISTORY OF OTHER SPECIFIED CONDITIONS SNOMED Code(s): 505146247 (2) Cholecystitis Current Visit: Yes Status: Acute Code(s): K81.9 - CHOLECYSTITIS, UNSPECIFIED SNOMED Code(s): 25495613 (3) Cholelithiasis Current Visit: Yes Status: Acute Code(s): K80.20 - CALCULUS OF GALLBLADDER W/O CHOLECYSTITIS W/O OBSTRUCTION SNOMED Code(s): 860715666 Plan: The patient will be monitored overnight. We'll check her labs in the morning. If she is doing well with pain and not having nausea, vomiting or complication from the ERCP she'll be discharged tomorrow. Further recommendations to follow.
[2019-10-23] MEDS: KETOROLAC 30 MG/ML 1 ML VIAL IVP PRN (20:51)
[2019-10-23] MEDS: SODIUM CHLORIDE 0.9% 1,000 ML IV SCH (23:55)
[2019-10-24 04:45] VITALS: BP 126/80; PULSE 71; RESP 16; TEMP 98.2
[2019-10-24 07:12] LABS: ALT 223 U/L (4-34); AST 128 U/L (14-36); African American GFR (CKD) >90 (>60 ml/min/1.73 sqM); Albumin 3.7 g/dL (3.5-5.0); Alkaline Phosphatase 102 U/L (38-126); Anion Gap 9 mmol/L; Blood Urea Nitrogen 6 mg/dL (7-17); Calcium 9.3 mg/dL (8.4-10.2); Carbon Dioxide 23 mmol/L (22-30); Chloride 103 mmol/L (98-107); Glucose 69 mg/dL (74-99); Non-African American GFR(CKD) >90 (>60 ml/min/1.73 sqM); Potassium 4.1 mmol/L (3.5-5.1); Sodium 135 mmol/L (137-145); Total Bilirubin 0.5 mg/dL (0.2-1.3)
[2019-10-24] MEDS: ESCITALOPRAM 10 MG TAB PO SCH (08:20)
[2019-10-24] MEDS: NORGESTIMATE ETHINYL ESTRADIOL PO SCH (08:20)
[2019-10-24] MEDS: FAMOTIDINE 20 MG/2 ML VIAL IV SCH (08:20)
[2019-10-24] MEDS: PANTOPRAZOLE 40 MG TABLET PO SCH (08:20)
--- NOTE | 2019-10-24 09:56 | FL ---
Fluoroscopy HISTORY: Dilated common bile duct 15 seconds fluoroscopy time supplied to the referring clinician. 1 intraoperative C-arm images docum ent the procedure. See dictated report from gastroenterology.
--- NOTE | 2019-10-24 11:40 | P.DS ---
Providers Date of admission: 10/24/19 07:23 Expected date of discharge: 10/24/19 Attending physician: Samreen Chavez Consults: 10/21/19 00:37 Consult Physician Stat Consulting Provider: Sacha Pérez Consult Reason/Comments: Cholecystitis Do you want consulting provider notified?: Yes Primary care physician: Andrey Humphries - Discharge Diagnosis(es) (1) History of jaundice Current Visit: Yes Status: Acute (2) Cholecystitis Current Visit: Yes Status: Acute (3) Cholelithiasis Current Visit: Yes Status: Acute (4) Choledocholithiasis Current Visit: Yes Status: Acute Hospital Course: The patient presented with abdominal pain and findings of cholecystitis and common bile duct dilation and ultrasound. She was admitted to the hospital. Consult was obtained with GI. She was taken the OR where she underwent laparoscopic cholecystectomy with intraoperative cholangiogram. Cholangiogram was felt to have choledocholithiasis as there was distal common bile duct filling defects and no significant flow into the duodenum. She subsequently underwent a an ERCP with sphincterotomy. Postop day 1 she was doing well. No nausea or vomiting. No significant pain. [place] to be stable for discharge Patient Condition at Discharge: Good Plan - Discharge Summary Discharge Rx Participant: No New Discharge Prescriptions: No Action Omeprazole [PriLOSEC] 40 mg PO DAILY Norgestimate-Ethinyl Estradiol [Tri-Sprintec Tablet] 1 tab PO DAILY Ergocalciferol [Vitamin D2] 50,000 unit PO Q7D Escitalopram [Lexapro] 10 mg PO DAILY Discharge Medication List Ergocalciferol [Vitamin D2] 50,000 unit PO Q7D 10/21/19 [History] Escitalopram [Lexapro] 10 mg PO DAILY 10/21/19 [History] Norgestimate-Ethinyl Estradiol [Tri-Sprintec Tablet] 1 tab PO DAILY 10/21/19 [History] Omeprazole [PriLOSEC] 40 mg PO DAILY 10/21/19 [History] Follow up Appointment(s)/Referral(s): Andrey Humphries MD [Primary Care Provider] - 1-2 days Samreen Chavez DO [Doctor of Osteopathic Medicine] - 2 Weeks Patient Instructions/Handouts: Cholecystitis (ED), ERCP (Endoscopic Retrograde Cholangiopancreatography) (DC) Activity/Diet/Wound Care/Special Instructions: Tylenol or Motrin as needed for pain. You may shower. Light dressing or Band- Aid to the incisions if there is drainage or they are rubbing on your clothing. Expect some bruising by the bellybutton. Call if you develop fevers, chills, nausea or vomiting, increasing abdominal pain or other concerns. Discharge Disposition: HOME SELF-CARE
--- NOTE | 2019-10-24 14:07 | PN ---
PROGRESS NOTE DATE OF DICTATION: 10/23/2019 Patient is a 23-year-old pleasant young girl admitted to the hospital with severe epigastric right upper quadrant abdominal pain and elevated LFTs. She had ultrasound, she had gallstones. She underwent gallbladder surgery 2 days ago and intra op cholangiogram revealed 2 small CBD stones in the distal common bile duct. She hence underwent an ERCP yesterday that revealed a dilated common bile duct, but no obvious filling defects were noted. A biliary sphincterotomy was performed and balloon extraction but no obvious stones were seen exiting the ampulla. There was some sludge that was extracted. Patient is doing well. She denies any symptoms. PHYSICAL EXAMINATION: Appears comfortable, in no apparent distress. Vital signs are stable. Blood pressure is 126/80, pulse rate 71, temperature 98.2. HEENT: Examination unremarkable. Conjunctivae are pink, scleral nonicteric, oral cavity no lesions. NECK: No JVD or lymph node enlargement. CHEST: Clear to auscultation. HEART: Regular rate and rhythm. ABDOMEN: Soft, bowel sounds are positive. No organomegaly. EXTREMITIES: No pedal edema. SKIN: No rashes. NEUROLOGIC: Alert and oriented x3. No focal deficits. LABS: Done today AST and ALT are 128 and 223 respectively. T-bilirubin and alkaline phosphatase are within normal limits. IMPRESSION: 1. Elevated LFTs, possibly related to CBD stone, status post ERCP yesterday that showed a dilated common bile duct with sludge, status post biliary sphincterotomy and balloon sweep. Serum transaminases remain slightly improved. 2. Status post gallbladder surgery 2 days ago for symptomatic gallstones. RECOMMENDATION: 1. Advance diet as tolerated. 2. She can be discharged home today with outpatient followup in 2 weeks at which time will obtain LFTs. Thank you for this consultation. MMODL / IJN: [id number] /
== END 2019-10-24 14:05 | disposition home or self-care (01) | DRG 419 ==
LOC: EC 22:36 → 5NMEDONC 10-21 01:04 → OBSVTOIN 10-24 07:23
PROVIDERS: ADMIT Surgery; ATTEND Surgery
PROC: BF101ZZ Fluoroscopy of Bile Ducts using Low Osmolar Contrast (ICD-10-PCS; 2019-10-22)
PROC: 0FT44ZZ Resection of Gallbladder, Percutaneous Endoscopic Approach (ICD-10-PCS; principal; 2019-10-22 16:45)
PROC: 0FC98ZZ Extirpation of Matter from Common Bile Duct, Via Natural or Artificial Opening Endoscopic (ICD-10-PCS; 2019-10-23)
DX: K80.62 Calculus of gallbladder and bile duct with acute cholecystitis without obstruction (principal); Z11.59 Encounter for screening for other viral diseases; K21.9 Gastro-esophageal reflux disease without esophagitis; Z79.899 Other long term (current) drug therapy
CPT/HCPCS: 36415; 43262; 74300; 74330; 76705; 80053; 81001; 81025; 83605; 83690; 85025; 85027; 85610; 85730; 86308; 87040; 87635; 88304; 96361; 96374; 96375; 99285

== ENCOUNTER 2019-11-17 16:07 | Observation (INO) | payer OTHER ==
[2019-11-17] MEDS ORDERED: SODIUM CHLORIDE 0.9% 500 ML 500 ML IV STA (16:44)
[2019-11-17] MEDS ORDERED: SODIUM CHLORIDE 0.9% 1,000 ML IV STA (16:44)
[2019-11-17] MEDS ORDERED: ONDANSETRON 4 MG/2 ML VIAL IVP STA (16:44)
[2019-11-17] MEDS ORDERED: FAMOTIDINE 20 MG/2 ML VIAL IV STA (16:46)
--- NOTE | 2019-11-17 16:50 | ED ---
General Adult HPI - General Chief complaint: Abdominal Pain Stated complaint: recheck - abd pain Time Seen by Provider: 11/17/19 16:20 Source: patient, RN notes reviewed Mode of arrival: ambulatory Limitations: no limitations - History of Present Illness Initial comments: Pt is a 24-year-old female presenting to the emergency department for epigastric pain as well as nausea vomiting. Patient states that she had a cholecystectomy about 3 weeks ago. Patient states that she had this because she had been having recurrent nausea and vomiting for several months prior as well as some epigastric pain. Patient states that she did have an ERCP done as she had sludge in the ducts after the surgery. Patient states she felt better for a couple weeks however 5 days ago the same pain as well as symptoms of nausea vomiting return. Patient states she has been vomiting several times daily for the past 5 days. She is unable to eat solid foods. She can only keep down small amounts of water. Patient states the pain comes and goes and is a squeezing pain in her epigastric area. Patient states eating significantly worsens his pain. Patient is actually pain-free at this time but is nauseous. Patient was seen at another facility 2 days ago and had a CT abdomen and pelvis with contrast performed and does not believe there is any acute findings.Patient has no other complaints at this time including shortness of breath, chest pain, abdominal pain, headache, or visual changes. - Related Data Home Medications Medication Instructions Recorded Confirmed Ergocalciferol [Vitamin D2] 50,000 unit PO Q7D 10/21/19 10/21/19 Escitalopram [Lexapro] 10 mg PO DAILY 10/21/19 10/21/19 Norgestimate-Ethinyl Estradiol 1 tab PO DAILY 10/21/19 10/21/19 [Tri-Sprintec Tablet] Omeprazole [PriLOSEC] 40 mg PO DAILY 10/21/19 10/21/19 Allergies Allergy/AdvReac Type Severity Reaction Status Date / Time No Known Allergies Allergy Verified 11/17/19 16:16 Review of Systems ROS Statement: Those systems with pertinent positive or pertinent negative responses have been documented in the HPI. ROS Other: All systems not noted in ROS Statement are negative. Past Medical History Past Medical History: GERD/Reflux Additional Past Medical History / Comment(s): GERD History of Any Multi-Drug Resistant Organisms: None Reported Past Surgical History: Cholecystectomy Additional Past Surgical History / Comment(s): ureter stent placed for obstruction Past Anesthesia/Blood Transfusion Reactions: No Reported Reaction Past Psychological History: No Psychological Hx Reported Smoking Status: Never smoker Past Alcohol Use History: None Reported Past Drug Use History: None Reported General Exam Limitations: no limitations General appearance: alert, in no apparent distress Head exam: Present: atraumatic, normocephalic, normal inspection Eye exam: Present: normal appearance, PERRL, EOMI. Absent: scleral icterus, conjunctival injection, periorbital swelling ENT exam: Present: normal exam, mucous membranes moist Neck exam: Present: normal inspection, full ROM. Absent: tenderness, meningismus, lymphadenopathy Respiratory exam: Present: normal lung sounds bilaterally. Absent: respiratory distress, wheezes, rales, rhonchi, stridor Cardiovascular Exam: Present: regular rate, normal rhythm, normal heart sounds. Absent: systolic murmur, diastolic murmur, rubs, gallop, clicks GI/Abdominal exam: Present: soft, normal bowel sounds. Absent: distended, tenderness (No abdominal tenderness), guarding, rebound, rigid Back exam: Absent: CVA tenderness (R), CVA tenderness (L) Course Vital Signs 11/17/19 11/17/19 11/17/19 16:13 16:32 19:19 Temperature 98.2 F 99 F Pulse Rate 76 81 92 Respiratory 18 18 16 Rate Blood Pressure 158/83 145/95 155/103 O2 Sat by Pulse 100 100 100 Oximetry Medical Decision Making - Medical Decision Making Vitals are stable. Patient initially presents pain-free but very nauseous. Abdominal exam was benign. ABC does show leukocytosis of 16 with a left shift. CMP shows evidence of dehydration with starvation ketosis. 4+ ketones in the urine. AST ALT are improving since cholecystectomy. Mucosa of 70, patient was able to drink a few sips of juice. X-ray KUB is unremarkable. Patient did have a computed tomography scan at outside facility [facility]. After several attempts of getting the CT over several hours I was unable to obtain a report however patient reports it was normal. We will continue attempting to get this report. Dr. Asif spoke with Dr. Avelar who does accept this admission, requests medicine admission with surgical consultation. I will also consulted GI as pain worsens significantly postprandially and is epigastric in nature. Possible EGD - Lab Data Result diagrams: 11/17/19 17:10 11/17/19 17:10 Lab Results 11/17/19 11/17/19 11/17/19 Range/Units 17:00 17:00 17:10 WBC 16.3 H (3.8-10.6) k/uL RBC 5.03 (3.80-5.40) m/uL Hgb 14.5 (11.4-16.0) gm/dL Hct 45.4 (34.0-46.0) % MCV 90.2 (80.0-100.0) fL MCH 28.9 (25.0-35.0) pg MCHC 32.1 (31.0-37.0) g/dL RDW 14.6 (11.5-15.5) % Plt Count 324 (150-450) k/uL Neutrophils % 75 % Lymphocytes % 17 % Monocytes % 5 % Eosinophils % 1 % Basophils % 0 % Neutrophils # 12.2 H (1.3-7.7) k/uL Lymphocytes # 2.8 (1.0-4.8) k/uL Monocytes # 0.8 (0-1.0) k/uL Eosinophils # 0.1 (0-0.7) k/uL Basophils # 0.0 (0-0.2) k/uL Sodium (137-145) mmol/L Potassium (3.5-5.1) mmol/L Chloride (98-107) mmol/L Carbon Dioxide (22-30) mmol/L Anion Gap mmol/L BUN (7-17) mg/dL Creatinine (0.52-1.04) mg/dL Est GFR (CKD-EPI)AfAm (>60 ml/min/1.73 sqM) Est GFR (CKD-EPI)NonAf (>60 ml/min/1.73 sqM) Glucose (74-99) mg/dL Plasma Lactic Acid Luis (0.7-2.0) mmol/L Calcium (8.4-10.2) mg/dL Total Bilirubin (0.2-1.3) mg/dL AST (14-36) U/L ALT (4-34) U/L Alkaline Phosphatase (38-126) U/L Total Protein (6.3-8.2) g/dL Albumin (3.5-5.0) g/dL Amylase (30-110) U/L Lipase (23-300) U/L Urine Color Yellow Urine Appearance Clear (Clear) Urine pH 6.0 (5.0-8.0) Ur Specific [place] 1.015 (1.001-1.035) Urine Protein Trace H (Negative) Urine Glucose (UA) Negative (Negative) Urine Ketones 4+ H (Negative) Urine Blood Small H (Negative) Urine Nitrite Negative (Negative) Urine Bilirubin Negative (Negative) Urine Urobilinogen 2.0 (<2.0) mg/dL Ur Leukocyte Esterase Trace H (Negative) Urine RBC 8 H (0-5) /hpf Urine WBC 4 (0-5) /hpf Ur Squamous Epith Cells 3 (0-4) /hpf Urine Mucus Few H (None) /hpf Urine HCG, Qual Not Detected (Not Detectd) 11/17/19 11/17/19 Range/Units 17:10 17:10 WBC (3.8-10.6) k/uL RBC (3.80-5.40) m/uL Hgb (11.4-16.0) gm/dL Hct (34.0-46.0) % MCV (80.0-100.0) fL MCH (25.0-35.0) pg MCHC (31.0-37.0) g/dL RDW (11.5-15.5) % Plt Count (150-450) k/uL Neutrophils % % Lymphocytes % % Monocytes % % Eosinophils % % Basophils % % Neutrophils # (1.3-7.7) k/uL Lymphocytes # (1.0-4.8) k/uL Monocytes # (0-1.0) k/uL Eosinophils # (0-0.7) k/uL Basophils # (0-0.2) k/uL Sodium 137 (137-145) mmol/L Potassium 3.5 (3.5-5.1) mmol/L Chloride 105 (98-107) mmol/L Carbon Dioxide 17 L (22-30) mmol/L Anion Gap 15 mmol/L BUN 9 (7-17) mg/dL Creatinine 0.62 (0.52-1.04) mg/dL Est GFR (CKD-EPI)AfAm >90 (>60 ml/min/1.73 sqM) Est GFR (CKD-EPI)NonAf >90 (>60 ml/min/1.73 sqM) Glucose 70 L (74-99) mg/dL Plasma Lactic Acid Luis 1.2 (0.7-2.0) mmol/L Calcium 10.4 H (8.4-10.2) mg/dL Total Bilirubin 1.3 (0.2-1.3) mg/dL AST 52 H (14-36) U/L ALT 51 H (4-34) U/L Alkaline Phosphatase 97 (38-126) U/L Total Protein 8.9 H (6.3-8.2) g/dL Albumin 5.2 H (3.5-5.0) g/dL Amylase 81 (30-110) U/L Lipase 126 (23-300) U/L Urine Color Urine Appearance (Clear) Urine pH (5.0-8.0) Ur Specific [place] (1.001-1.035) Urine Protein (Negative) Urine Glucose (UA) (Negative) Urine Ketones (Negative) Urine Blood (Negative) Urine Nitrite (Negative) Urine Bilirubin (Negative) Urine Urobilinogen (<2.0) mg/dL Ur Leukocyte Esterase (Negative) Urine RBC (0-5) /hpf Urine WBC (0-5) /hpf Ur Squamous Epith Cells (0-4) /hpf Urine Mucus (None) /hpf Urine HCG, Qual (Not Detectd) Disposition Clinical Impression: Intractable abdominal pain, Nausea and vomiting, History of cholecystectomy, Dehydration Disposition: ADMITTED IP TO THIS HOSP Is patient prescribed a controlled substance at d/c from ED?: No Referrals: Andrey Humphries MD [Primary Care Provider] - 1-2 days Time of Disposition: 19:31
[2019-11-17 17:22] LABS: Appearance,Urine Clear (Clear); Bilirubin,Urine Negative (Negative); Blood,Urine Small (Negative); Color,Urine Yellow; Glucose,Urine (UA) Negative (Negative); Ketones,Urine 4+ (Negative); Leukocyte Esterase,Urine Trace (Negative); Mucus,Urine Few /hpf; Nitrite,Urine Negative (Negative); Protein,Urine Trace (Negative); RBC,Urine 8 /hpf (0-5); Specific Gravity,Urine 1.015 (1.001-1.035); Squamous Epithelial Cell,Urine 3 /hpf (0-4); WBC,Urine 4 /hpf (0-5)
--- NOTE | 2019-11-17 17:57 | XR ---
EXAMINATION TYPE: XR KUB DATE OF EXAM: 11/17/2019 COMPARISON: 11/15/2003 HISTORY: Abdominal pain TECHNIQUE: 2 views upright FINDINGS: There is no sign of intestinal obstruction or pneumoperitoneum. Fecal pattern is normal. Th ere are clips from cholecystectomy. Lung bases are clear. There is no sign of a mass. IMPRESSION: Nonacute abdomen.
[2019-11-17 17:58] LABS: Basophils % (A) 0 %; Eosinophils # (A) 0.1 k/uL (0-0.7); Eosinophils % (A) 1 %; HCT 45.4 % (34.0-46.0); HGB 14.5 gm/dL (11.4-16.0); Lymphocytes # (A) 2.8 k/uL (1.0-4.8); Lymphocytes % (A) 17 %; MCH 28.9 pg (25.0-35.0); MCHC 32.1 g/dL (31.0-37.0); MCV 90.2 fL (80.0-100.0); Mean Platelet Volume 8.2; Monocytes # (A) 0.8 k/uL (0-1.0); Monocytes % (A) 5 %; Neutrophils # (A) 12.2 k/uL (1.3-7.7); Neutrophils % (A) 75 %; Platelet Count 324 k/uL (150-450); RBC 5.03 m/uL (3.80-5.40); RDW 14.6 % (11.5-15.5); WBC 16.3 k/uL (3.8-10.6)
[2019-11-17 18:22] LABS: ALT 51 U/L (4-34); AST 52 U/L (14-36); African American GFR (CKD) >90 (>60 ml/min/1.73 sqM); Albumin 5.2 g/dL (3.5-5.0); Alkaline Phosphatase 97 U/L (38-126); Amylase 81 U/L (30-110); Anion Gap 15 mmol/L; Blood Urea Nitrogen 9 mg/dL (7-17); Calcium 10.4 mg/dL (8.4-10.2); Carbon Dioxide 17 mmol/L (22-30); Chloride 105 mmol/L (98-107); Glucose 70 mg/dL (74-99); Non-African American GFR(CKD) >90 (>60 ml/min/1.73 sqM); Potassium 3.5 mmol/L (3.5-5.1); Sodium 137 mmol/L (137-145); Total Bilirubin 1.3 mg/dL (0.2-1.3); Total Protein 8.9 g/dL (6.3-8.2)
[2019-11-17] MEDS ORDERED: METOCLOPRAMIDE 5 MG/ML 2 ML VIAL IVP STA (19:05)
[2019-11-17] MEDS ORDERED: diphenhydrAMINE 50 MG/ML 1 ML VIAL IVP STA (19:05)
[2019-11-17] MEDS ORDERED: MAG HYDROX/AL HYDROX/SIMETH 30 ML, HYOSCYAMINE ELIXIR 10 ML, LIDOCAINE VISCOUS 2% 10 ML PO STA ×3 (19:05)
[2019-11-17] MEDS ORDERED: NALOXONE 0.4 MG/ML 1 ML VIAL IV PRN (19:21)
[2019-11-17] MEDS ORDERED: METOCLOPRAMIDE 5 MG/ML 2 ML VIAL IVP PRN (19:26)
[2019-11-17] MEDS: SODIUM CHLORIDE 0.9% 1,000 ML IV SCH (20:31)
[2019-11-17] MEDS: FAMOTIDINE 20 MG/2 ML VIAL IV SCH (21:51)
[2019-11-17] MEDS: HYDROmorphone 0.5 MG/0.5 ML SYRINGE IVP PRN (21:51)
[2019-11-18] MEDS: HYDROmorphone 0.5 MG/0.5 ML SYRINGE IVP PRN ×3 (01:23→13:21)
[2019-11-18] MEDS: SODIUM CHLORIDE 0.9% 1,000 ML IV SCH ×3 (03:26→19:51)
[2019-11-18] MEDS: FAMOTIDINE 20 MG/2 ML VIAL IV SCH (07:30)
[2019-11-18 09:27] LABS: Basophils % (A) 0 %; Eosinophils # (A) 0.1 k/uL (0-0.7); Eosinophils % (A) 1 %; HCT 36.5 % (34.0-46.0); Lymphocytes # (A) 3.8 k/uL (1.0-4.8); Lymphocytes % (A) 37 %; MCH 30.6 pg (25.0-35.0); MCHC 32.8 g/dL (31.0-37.0); MCV 93.3 fL (80.0-100.0); Mean Platelet Volume 8.4; Monocytes # (A) 0.7 k/uL (0-1.0); Monocytes % (A) 7 %; Neutrophils # (A) 5.5 k/uL (1.3-7.7); Neutrophils % (A) 53 %; Platelet Count 237 k/uL (150-450); RBC 3.91 m/uL (3.80-5.40); RDW 14.5 % (11.5-15.5); WBC 10.4 k/uL (3.8-10.6)
[2019-11-18 09:35] LABS: ALT 36 U/L (4-34); AST 34 U/L (14-36); African American GFR (CKD) >90 (>60 ml/min/1.73 sqM); Albumin 3.4 g/dL (3.5-5.0); Alkaline Phosphatase 58 U/L (38-126); Anion Gap 9 mmol/L; Blood Urea Nitrogen 5 mg/dL (7-17); Calcium 8.6 mg/dL (8.4-10.2); Carbon Dioxide 20 mmol/L (22-30); Chloride 109 mmol/L (98-107); Glucose 60 mg/dL (74-99); Non-African American GFR(CKD) >90 (>60 ml/min/1.73 sqM); Potassium 3.5 mmol/L (3.5-5.1); Sodium 138 mmol/L (137-145); Total Bilirubin 0.8 mg/dL (0.2-1.3); Total Protein 6.2 g/dL (6.3-8.2)
[2019-11-18] MEDS: NORGESTIMATE ETHINYL ESTRADIOL PO SCH (09:41)
--- NOTE | 2019-11-18 10:26 | P.GSCN ---
History of Present Illness Consult date: 11/18/19 History of present illness: 24-year-old female presents to the emergency department with complaints of nausea and vomiting that began 6 days ago. She is noted to have a history of cholecystectomy on 10/22/2019 with an intraoperative cholangiogram. At the time of surgery, a filling defect was noted in the common bile duct and the patient did have an ERCP performed the next day with evacuation of sludge. She states that initially after surgery she began to feel better, however over the past 6 days she has had pain in the epigastrium and inability to keep any oral intake down. She states that at this point she is vomiting bile. She denies hematemesis. She denies any significant bowel changes. She denies any fevers, chills, chest pain or shortness of breath. On initial laboratory values, she does have mildly elevated liver enzymes. She also states that she presented to an outside emergency department 2 days ago and at that time had a CT of the abdomen and pelvis completed. These records have been requested, however the patient states that at that time she was informed that there were no significant findings on CT. Review of Systems All systems: negative Past Medical History Past Medical History: GERD/Reflux Additional Past Medical History / Comment(s): GERD History of Any Multi-Drug Resistant Organisms: None Reported Past Surgical History: Cholecystectomy Additional Past Surgical History / Comment(s): ureter stent placed for obstruction Past Anesthesia/Blood Transfusion Reactions: No Reported Reaction Past Psychological History: No Psychological Hx Reported Smoking Status: Never smoker Past Alcohol Use History: None Reported Past Drug Use History: None Reported Medications and Allergies Home Medications Medication Instructions Recorded Confirmed Type Ergocalciferol [Vitamin D2] 50,000 unit PO COPELAND 10/21/19 11/17/19 History Escitalopram [Lexapro] 10 mg PO DAILY@1500 10/21/19 11/17/19 History Norgestimate-Ethinyl Estradiol 1 tab PO DAILY 10/21/19 11/17/19 History [Tri-Sprintec Tablet] Omeprazole [PriLOSEC] 40 mg PO DAILY@1500 10/21/19 11/17/19 History Allergies Allergy/AdvReac Type Severity Reaction Status Date / Time No Known Allergies Allergy Verified 11/17/19 19:46 Surgical - Exam Osteopathic Statement: *. No significant issues noted on an osteopathic structural exam other than those noted in the History and Physical/Consult. Vital Signs Temp Pulse Resp BP Pulse Ox 98.2 F 76 18 158/83 100 11/17/19 16:13 11/17/19 16:13 11/17/19 16:13 11/17/19 16:13 11/17/19 16:13 - General well nourished, no distress - Eyes PERRL - Neck trachea midline - Respiratory normal respiratory effort - Abdomen Soft, mild tenderness in the epigastrium, no rebound, no guarding, incision sites are well-healed - Psychiatric oriented to time, oriented to person, oriented to place Results - Labs 11/18/19 09:01 11/18/19 09:01 Abnormal Lab Results - Last 24 Hours (Table) 11/17/19 11/17/19 11/17/19 Range/Units 17:00 17:10 17:10 WBC 16.3 H (3.8-10.6) k/uL Neutrophils # 12.2 H (1.3-7.7) k/uL Chloride (98-107) mmol/L Carbon Dioxide 17 L (22-30) mmol/L BUN (7-17) mg/dL Glucose 70 L (74-99) mg/dL Calcium 10.4 H (8.4-10.2) mg/dL AST 52 H (14-36) U/L ALT 51 H (4-34) U/L Total Protein 8.9 H (6.3-8.2) g/dL Albumin 5.2 H (3.5-5.0) g/dL Urine Protein Trace H (Negative) Urine Ketones 4+ H (Negative) Urine Blood Small H (Negative) Ur Leukocyte Esterase Trace H (Negative) Urine RBC 8 H (0-5) /hpf Urine Mucus Few H (None) /hpf 11/18/19 Range/Units 09:01 WBC (3.8-10.6) k/uL Neutrophils # (1.3-7.7) k/uL Chloride 109 H (98-107) mmol/L Carbon Dioxide 20 L (22-30) mmol/L BUN 5 L (7-17) mg/dL Glucose 60 L (74-99) mg/dL Calcium (8.4-10.2) mg/dL AST (14-36) U/L ALT 36 H (4-34) U/L Total Protein 6.2 L (6.3-8.2) g/dL Albumin 3.4 L (3.5-5.0) g/dL Urine Protein (Negative) Urine Ketones (Negative) Urine Blood (Negative) Ur Leukocyte Esterase (Negative) Urine RBC (0-5) /hpf Urine Mucus (None) /hpf Diabetes panel 11/17/19 11/18/19 Range/Units 17:10 09:01 Sodium 137 138 (137-145) mmol/L Potassium 3.5 3.5 (3.5-5.1) mmol/L Chloride 105 109 H (98-107) mmol/L Carbon Dioxide 17 L 20 L (22-30) mmol/L BUN 9 5 L (7-17) mg/dL Creatinine 0.62 0.59 (0.52-1.04) mg/dL Glucose 70 L 60 L (74-99) mg/dL Calcium 10.4 H 8.6 (8.4-10.2) mg/dL AST 52 H 34 (14-36) U/L ALT 51 H 36 H (4-34) U/L Alkaline Phosphatase 97 58 (38-126) U/L Total Protein 8.9 H 6.2 L (6.3-8.2) g/dL Albumin 5.2 H 3.4 L (3.5-5.0) g/dL Calcium panel 11/17/19 11/18/19 Range/Units 17:10 09:01 Calcium 10.4 H 8.6 (8.4-10.2) mg/dL Albumin 5.2 H 3.4 L (3.5-5.0) g/dL Pituitary panel 11/17/19 11/18/19 Range/Units 17:10 09:01 Sodium 137 138 (137-145) mmol/L Potassium 3.5 3.5 (3.5-5.1) mmol/L Chloride 105 109 H (98-107) mmol/L Carbon Dioxide 17 L 20 L (22-30) mmol/L BUN 9 5 L (7-17) mg/dL Creatinine 0.62 0.59 (0.52-1.04) mg/dL Glucose 70 L 60 L (74-99) mg/dL Calcium 10.4 H 8.6 (8.4-10.2) mg/dL Adrenal panel 11/17/19 11/18/19 Range/Units 17:10 09:01 Sodium 137 138 (137-145) mmol/L Potassium 3.5 3.5 (3.5-5.1) mmol/L Chloride 105 109 H (98-107) mmol/L Carbon Dioxide 17 L 20 L (22-30) mmol/L BUN 9 5 L (7-17) mg/dL Creatinine 0.62 0.59 (0.52-1.04) mg/dL Glucose 70 L 60 L (74-99) mg/dL Calcium 10.4 H 8.6 (8.4-10.2) mg/dL Total Bilirubin 1.3 0.8 (0.2-1.3) mg/dL AST 52 H 34 (14-36) U/L ALT 51 H 36 H (4-34) U/L Alkaline Phosphatase 97 58 (38-126) U/L Total Protein 8.9 H 6.2 L (6.3-8.2) g/dL Albumin 5.2 H 3.4 L (3.5-5.0) g/dL Assessment and Plan Plan: 24-year-old female with nausea and vomiting, status post cholecystectomy and ERCP approximately 4 weeks ago - Currently, the patient appears to be comfortable and is tolerating clear liquid diet. She does not have elevation of bilirubin levels and transaminases are trending towards normal. We will obtain an ultrasound to evaluate for any biloma formation. Gastroenterology has been consultation and we will await their recommendations on possibility of passing a small stone or sludge. Continue to treat any nausea and vomiting with antiemetic medication. Further recommendations after ultrasound is performed.
[2019-11-18] MEDS: ONDANSETRON 4 MG/2 ML VIAL IVP PRN ×2 (10:58→22:14)
--- NOTE | 2019-11-18 12:01 | US ---
EXAMINATION TYPE: US abdomen limited DATE OF EXAM: 11/18/2019 COMPARISON: Previous study dated 10/20/2019. CLINICAL HISTORY: r/o biloma. Intermittent abdomen pain and N/V x 6 months, cholecystectomy 3 weeks a go EXAM MEASUREMENTS: Liver Length: 13.1 cm CBD: 0.7 cm Right Kidney: 10.9 x 4.7 x 4.7 cm Pancreas: obscured by overlying midline bowel gas Liver: wnl Gallbladder: surgically absent Evidence for sonographic Roberts's sign: no CBD: visualized portions wnl, partially obscured by overlying bowel gas Right Kidney: wnl The pancreas is not visualized. The liver is normal in size without biliary dilatation. The gallbladder is been removed. Distal common hepatic duct measures 7 mm. Right kidney is unremarkable. IMPRESSION: STATUS POST CHOLECYSTECTOMY.
[2019-11-18 13:41] VITALS: BMI 25.2
[2019-11-18] MEDS: PANTOPRAZOLE 40 MG TABLET PO SCH ×2 (14:53→17:54)
[2019-11-18] MEDS: ESCITALOPRAM 10 MG TAB PO SCH (14:53)
[2019-11-18] MEDS: CALCIUM CARBONATE LIQUID 500 MG/5 ML CUP PO SCH ×3 (14:53→20:28)
[2019-11-18] MEDS ORDERED: FAMOTIDINE 20 MG TAB PO SCH (21:00)
--- NOTE | 2019-11-18 21:05 | P.HPIM ---
History of Present Illness H&P Date: 11/18/19 Chief Complaint: Epigastric pain History of presenting complaint: This is a pleasant 24-year-old patient of Dr. Humphries. Patient on October 21 underwent a cholecystectomy by Dr. Gonzalez. Also had an ERCP with sphincterotomy by Dr. Aga Gaytan. Patient was discharged on October 23. Patient had been feeling okay. Patient states that she feels better worse to food. Has a lot of reflux symptoms. Has lost about 20 pounds last few weeks. When she eats she gets increasing abdominal pain. Sometimes otherwise to. Her nausea vomiting. Also gets epigastric pain in the interim. Often has woken up with the discomfort in the epigastric area. No fever or chills. Patient is rather eats a lot of frozen and junk food. Patient does take Prilosec 40 mg daily. Review of systems: GEN.: Some weight loss EYES: None HEENT: None NECK: None RESPIRATORY: None CARDIOVASCULAR: None GASTROINTESTINAL: As above GENITOURINARY: None MUSCULOSKELETAL: None LYMPHATICS: None HEMATOLOGICAL: None PSYCHIATRY: Depression NEUROLOGICAL: None Past medical history to include: GERD, depression, Social history: Does not smoke or drink alcohol. No recreational drugs. Lives with significant other Mona Family history: Reviewed, noncontributory to presentation Physical examination: VITAL SIGNS: 98.2, 76, 18, 145/95, 100% on room air GENERAL: BMI 25.2, sitting up bed, not in distress. EYES: Pupils equal. Conjunctiva normal. HEENT: External appearance of nose and ears normal, oral cavity grossly normal. NECK: JVD not raised; masses not palpable. HEART: First and second heart sounds are normal; no edema. LUNGS: Respiratory rate normal; clear to auscultation. ABDOMEN: Soft, epigastric tenderness, no guarding or rigidity,, liver spleen not palpable, no masses palpable. PSYCH: [Alert and oriented x3; mood and affect slightly anxious l. NEUROLOGICAL: Cranial nerves grossly intact; no facial asymmetry, power and sensation grossly intact. LYMPHATICS: No lymph nodes palpable in the axilla and neck INVESTIGATIONS, reviewed in the clinical context: White count 16.3 hemoglobin 40.5 potassium 3.5 creatinine 0.62 AST 52 ALT 51 COVID 19 PCR-not detected Calcium 10.4 Abdominal ultrasound on October 19 shows numerous large gallstones distal common bile duct obstruction possible. Liver normal Assessment: -This is a patient is had reflux and also sometimes getting worse. Especially w ith food. He to rule out peptic ulcer disease. Associated nausea vomiting. Patient had some weight loss because of the same. -History of recent cholecystectomy and's ERCP with sphincterotomy. -Hypoglycemia from decreased oral intake -Hypercalcemia from dehydration -Leukocytosis likely reactive Plan: Care was discussed at length with. Lifestyle measures were explained to the. Including proper diet patient will need EGD. Increase PPI. Patient on a liquid diet. GI was consulted. Past Medical History Past Medical History: GERD/Reflux Additional Past Medical History / Comment(s): GERD History of Any Multi-Drug Resistant Organisms: None Reported Past Surgical History: Cholecystectomy Additional Past Surgical History / Comment(s): ureter stent placed for obstruction Past Anesthesia/Blood Transfusion Reactions: No Reported Reaction Past Psychological History: No Psychological Hx Reported Smoking Status: Never smoker Past Alcohol Use History: None Reported Past Drug Use History: None Reported Medications and Allergies Home Medications Medication Instructions Recorded Confirmed Type Ergocalciferol [Vitamin D2] 50,000 unit PO COPELAND 10/21/19 11/17/19 History Escitalopram [Lexapro] 10 mg PO DAILY@1500 10/21/19 11/17/19 History Norgestimate-Ethinyl Estradiol 1 tab PO DAILY 10/21/19 11/17/19 History [Tri-Sprintec Tablet] Omeprazole [PriLOSEC] 40 mg PO DAILY@1500 10/21/19 11/17/19 History Allergies Allergy/AdvReac Type Severity Reaction Status Date / Time No Known Allergies Allergy Verified 11/17/19 19:46 Physical Exam Vitals: Vital Signs Temp Pulse Pulse Resp BP BP Pulse Ox 11/18/19 07:45 18 11/18/19 07:00 97.7 F 77 18 107/63 98 11/18/19 02:35 98.5 F 61 109/67 98 11/17/19 20:11 98.7 F 68 14 116/69 99 11/17/19 20:06 98.9 F 94 16 111/58 98 11/17/19 19:19 92 16 155/103 100 11/17/19 16:32 99 F 81 18 145/95 100 11/17/19 16:13 98.2 F 76 18 158/83 100 Intake and Output 0611/18/19 11/18/19 22:59 06:59 14:59 Intake Total 1500 Balance 1500 Intake: Amount of Fluid Infused ( 1500 ml) Other: Voiding Method Toilet # Voids 1 2 Weight 58.513 kg Results CBC & Chem 7: 11/18/19 09:01 11/18/19 09:01 Labs: Abnormal Lab Results - Last 24 Hours (Table) 11/17/19 11/17/19 11/17/19 Range/Units 17:00 17:10 17:10 WBC 16.3 H (3.8-10.6) k/uL Neutrophils # 12.2 H (1.3-7.7) k/uL Chloride (98-107) mmol/L Carbon Dioxide 17 L (22-30) mmol/L BUN (7-17) mg/dL Glucose 70 L (74-99) mg/dL Calcium 10.4 H (8.4-10.2) mg/dL AST 52 H (14-36) U/L ALT 51 H (4-34) U/L Total Protein 8.9 H (6.3-8.2) g/dL Albumin 5.2 H (3.5-5.0) g/dL Urine Protein Trace H (Negative) Urine Ketones 4+ H (Negative) Urine Blood Small H (Negative) Ur Leukocyte Esterase Trace H (Negative) Urine RBC 8 H (0-5) /hpf Urine Mucus Few H (None) /hpf 11/18/19 Range/Units 09:01 WBC (3.8-10.6) k/uL Neutrophils # (1.3-7.7) k/uL Chloride 109 H (98-107) mmol/L Carbon Dioxide 20 L (22-30) mmol/L BUN 5 L (7-17) mg/dL Glucose 60 L (74-99) mg/dL Calcium (8.4-10.2) mg/dL AST (14-36) U/L ALT 36 H (4-34) U/L Total Protein 6.2 L (6.3-8.2) g/dL Albumin 3.4 L (3.5-5.0) g/dL Urine Protein (Negative) Urine Ketones (Negative) Urine Blood (Negative) Ur Leukocyte Esterase (Negative) Urine RBC (0-5) /hpf Urine Mucus (None) /hpf Thrombosis Risk Factor Assmnt - Choose All That Apply Any of the Below Risk Factors Present?: No Other Risk Factors: No Thrombosis Risk Factor Assessment Level: Very Low Risk
--- NOTE | 2019-11-19 01:59 | CONS ---
CONSULTATION DATE OF DICTATION: 11/18/2019. REASON FOR CONSULTATION: Severe epigastric pain, nausea, vomiting. HISTORY OF PRESENT ILLNESS: The patient is a 24-year-old pleasant white female admitted to the hospital because of epigastric pain associated with nausea vomiting for the last one week duration. She underwent gallbladder surgery on October 21 for symptomatic gallstones and was noted to have CBD stone on intraoperative cholangiogram. Subsequently underwent an ERCP with biliary sphincterotomy the following day. She did well. She was discharged home. Her serum transaminases have completely normalized. The patient was in fact seen on outpatient basis in the office 2 weeks after the surgery and she was doing extremely well. However, for the last one week, she started having some epigastric discomfort with nausea, vomiting. She presented to the emergency room 2 days ago and she had a CT of the abdomen done, but as per the patient, they were all within normal limits. She continued to have symptoms and came back to the emergency room again last night and admitted, was noted to have minimal elevation of serum transaminases with ALT and AST at 54 and 55 respectively. PAST MEDICAL HISTORY: GERD. PAST SURGICAL HISTORY: Recent cholecystectomy a month ago. SOCIAL HISTORY: No smoking. No alcohol use. FAMILY HISTORY: Unremarkable. REVIEW OF SYSTEMS: CARDIOPULMONARY: No chest pain or shortness of breath. GENITOURINARY: No dysuria or hematuria. MUSCULOSKELETAL: Unremarkable. SKIN: Unremarkable. ENDOCRINE: Unremarkable. PSYCHIATRIC: Unremarkable. NEUROLOGY: Unremarkable. ENT/VISION: Unremarkable. CONSTITUTIONAL: No recent weight loss. No fever, chills, night sweats. MEDICATIONS: Home medications include vitamin D3, Lexapro, control pills and Prilosec. ALLERGIES: None. PHYSICAL EXAMINATION: Blood pressure 158/83, pulse rate 76, temperature 98.2. HEENT EXAMINATION: Unremarkable. Conjunctivae pink. Sclerae anicteric. Oral cavity, no lesions. NECK: No JVD or lymph node enlargement. CHEST: Clear to auscultation. HEART: Regular rate and rhythm. ABDOMEN: Soft. Bowel sounds are positive. No organomegaly. EXTREMITIES: No pedal edema. SKIN: No rashes. NEURO: She is alert and oriented x3. No focal deficits. LABS: WBC 10.4, hemoglobin 12, platelets normal. Basic metabolic panel is within normal limits. ALT and AST 51 and 55 respectively yesterday. Today, they are 34 and 36 respectively. Amylase and lipase are normal. IMPRESSION: Epigastric pain associated with nausea, vomiting for the last 6 days duration. This patient who recently underwent laparoscopic cholecystectomy by Dr. Chavez a month ago. She also had subsequent ERCP with CBD with biliary sphincterotomy the following day, now presents with persistent ongoing epigastric discomfort for the last one week with minimal elevation of serum transaminases which have almost normalized today. At this time possibility of CBD stone though unlikely cannot be entirely excluded. Possibility of gastritis needs to be considered. RECOMMENDATIONS: 1. Start on clear liquid diet. 2. Continue with Protonix 40 mg twice daily. 3. We will schedule her for MRCP to rule out CBD stone. 4. Repeat labs in the morning. 5. Will follow with you closely. Thank you for this consultation. FARRUKH / ALFAN: [id number] /
[2019-11-19] MEDS: SODIUM CHLORIDE 0.9% 1,000 ML IV SCH ×3 (03:18→17:11)
[2019-11-19 07:31] LABS: Basophils % (A) 0 %; Eosinophils # (A) 0.1 k/uL (0-0.7); Eosinophils % (A) 1 %; HCT 39.7 % (34.0-46.0); HGB 12.2 gm/dL (11.4-16.0); Lymphocytes # (A) 3.3 k/uL (1.0-4.8); Lymphocytes % (A) 35 %; MCHC 30.7 g/dL (31.0-37.0); MCV 91.4 fL (80.0-100.0); Mean Platelet Volume 8.3; Monocytes # (A) 0.6 k/uL (0-1.0); Monocytes % (A) 7 %; Neutrophils # (A) 5.1 k/uL (1.3-7.7); Neutrophils % (A) 54 %; Platelet Count 235 k/uL (150-450); RBC 4.34 m/uL (3.80-5.40); RDW 14.5 % (11.5-15.5); WBC 9.4 k/uL (3.8-10.6)
[2019-11-19] MEDS ORDERED: ACETAMINOPHEN TAB 325 MG TAB PO PRN (07:43)
[2019-11-19] MEDS: NORGESTIMATE ETHINYL ESTRADIOL PO SCH (07:44)
[2019-11-19] MEDS: PANTOPRAZOLE 40 MG TABLET PO SCH ×2 (07:45→16:15)
[2019-11-19] MEDS: CALCIUM CARBONATE LIQUID 500 MG/5 ML CUP PO SCH ×3 (07:45→16:15)
[2019-11-19 08:05] LABS: ALT 35 U/L (4-34); AST 27 U/L (14-36); African American GFR (CKD) >90 (>60 ml/min/1.73 sqM); Albumin 3.7 g/dL (3.5-5.0); Alkaline Phosphatase 60 U/L (38-126); Anion Gap 9 mmol/L; Blood Urea Nitrogen 3 mg/dL (7-17); Calcium 8.8 mg/dL (8.4-10.2); Carbon Dioxide 23 mmol/L (22-30); Chloride 106 mmol/L (98-107); Glucose 72 mg/dL (74-99); Non-African American GFR(CKD) >90 (>60 ml/min/1.73 sqM); Potassium 3.6 mmol/L (3.5-5.1); Sodium 138 mmol/L (137-145); Total Bilirubin 0.6 mg/dL (0.2-1.3); Total Protein 6.7 g/dL (6.3-8.2)
[2019-11-19] MEDS: ONDANSETRON 4 MG/2 ML VIAL IVP PRN (11:08)
--- NOTE | 2019-11-19 11:12 | P.PN ---
Progress Note - Text Progress Note Date: 11/19/19 Patient continues to have pain. The nausea is controlled with medication. She is requesting medication for pain.She was seen by GI ordered an MRCP. Currently nonsurgical. We'll follow up.
[2019-11-19] MEDS ORDERED: HYDROmorphone 0.5 MG/0.5 ML SYRINGE IVP PRN (11:13)
[2019-11-19 15:06] VITALS: BP 134/79; PULSE 74; RESP 18; TEMP 98.2
[2019-11-19] MEDS: ESCITALOPRAM 10 MG TAB PO SCH (16:15)
--- NOTE | 2019-11-19 19:04 | PN ---
PROGRESS NOTE DATE OF SERVICE: 11/19/2019 Patient is a 30-year-old pleasant white female admitted to the hospital with severe epigastric and right upper quadrant pain associated with nausea and vomiting for the last 5 days duration. She was noted to have a bilirubin elevation of serum transaminases. Today, she is feeling better. Has some epigastric discomfort. She is scheduled for an MRCP at 2:45 pm. PHYSICAL EXAMINATION: Appears comfortable. No apparent distress. Vital signs stable stable. Blood pressure is 134/79, pulse rate 74, temperature 98.2. HEENT examination unremarkable. Conjunctivae pink. Sclerae anicteric. Oral cavity no lesions. NECK: No JVD or lymph node enlargement. CHEST: Clear to auscultation. HEART: Regular rate and rhythm. ABDOMEN: Soft, minimal tenderness in the epigastric area. Bowel sounds are positive. No organomegaly. EXTREMITIES: No pedal edema. NEURO: She is alert and oriented x3. No focal deficits. LAB: CBC is within normal limits. AST and ALT are 27 and 35 respectively. T-bilirubin and alkaline phosphatase are normal. IMPRESSION: Epigastric pain of one week duration associated with nausea, vomiting. She is status post gallbladder surgery as well as ERCP with CBD stone extraction a month ago now presents with similar symptoms and serum transaminases are minimally elevated that have almost normalized. At this time, possibility of a CBD stone cannot be entirely excluded. RECOMMENDATIONS: 1. Continue with Protonix 40 mg daily. 2. Await MRCP results and based on that test, we will decide if she needs to have any endoscopy intervention. 3. Advance to a regular diet following the MRCP. 4. We will follow with you closely. Thank you for this consultation. MMODL / IJN: [id number] /
--- NOTE | 2019-11-20 12:30 | MR ---
MRCP HISTORY: Abdominal pain, nausea and vomiting Multiplanar multisequence imaging obtained through the abdomen with three-dimensional reconstructions performed through the biliary system. Correlation to ultrasound abdomen 11/18/2019, CT 12/24/2015 The common bile duct appears dilated. Patient is post cholecystectomy. No filling defect is evident s uggest choledocholithiasis. Pancreatic duct is not dilated. Extrarenal pelves within the kidneys appe ars chronic. The spleen is unremarkable. No retroperitoneal adenopathy or adrenal mass. Lung bases ar e clear. Pancreas shows no mass. No evident bowel obstruction. Liver shows no mass. IMPRESSION: Postcholecystectomy.
--- NOTE | 2019-11-20 22:45 | P.DS ---
Providers Date of admission: 11/17/19 19:18 Expected date of discharge: 11/19/19 Attending physician: Franklin Pablo Consults: 11/17/19 19:22 Consult Physician Routine Consulting Provider: Edmundo Silver Consult Reason/Comments: post op abd pain/ N&V Do you want consulting provider notified?: Yes 11/17/19 19:23 Consult Physician Routine Consulting Provider: Jennifer Gaytan Consult Reason/Comments: intractable NV, epigastric pain, poss egd Do you want consulting provider notified?: Yes Primary care physician: Andreymonroe Humphries [facility] Course: Chief Complaint: Epigastric pain History of presenting complaint: This is a pleasant 24-year-old patient of Dr. Humphries. Patient on October 21 underwent a cholecystectomy by Dr. Gonzalez. Also had an ERCP with sphincterotomy by Dr. Aga Gaytan. Patient was discharged on October 23. Patient had been feeling okay. Patient states that she feels better worse to food. Has a lot of reflux symptoms. Has lost about 20 pounds last few weeks. When she eats she gets increasing abdominal pain. Sometimes otherwise to. Her nausea vomiting. Also gets epigastric pain in the interim. Often has woken up with the discomfort in the epigastric area. No fever or chills. Patient is rather eats a lot of frozen and junk food. Patient does take Prilosec 40 mg daily. Patient had an MRCP. Unremarkable. We'll follow with Dr. Max as an outpatient. Also PPI increased. Consultation: Dr. Aga Gaytan from GI Dr. Chavez from general surgery Physical examination: VITAL SIGNS: 98.6, 75, 15, 133/86, 99% room air GENERAL: BMI 25.2, sitting up bed, not in distress. EYES: Pupils equal. Conjunctiva normal. HEENT: External appearance of nose and ears normal, oral cavity grossly normal. NECK: JVD not raised; masses not palpable. HEART: First and second heart sounds are normal; no edema. LUNGS: Respiratory rate normal; clear to auscultation. ABDOMEN: Soft, epigastric tenderness, no guarding or rigidity,, liver spleen not palpable, no masses palpable. PSYCH: [Alert and oriented x3; mood and affect slightly anxious l. INVESTIGATIONS, reviewed in the clinical context: White count 9.4 hemoglobin 12.2 potassium 3.6 creatinine 0.54 Previous testing White count 16.3 hemoglobin 40.5 potassium 3.5 creatinine 0.62 AST 52 ALT 51 COVID 19 PCR-not detected Calcium 10.4 Abdominal ultrasound on October 19 shows numerous large gallstones distal common bile duct obstruction possible. Liver normal Cholangiopancreatography MRI-negative Assessment: -Exacerbation of GERD.. -History of recent cholecystectomy and's ERCP with sphincterotomy. -Hypoglycemia from decreased oral intake -Hypercalcemia from dehydration -Leukocytosis likely reactive Disposition: Home Patient Condition at Discharge: Stable Plan - Discharge Summary Discharge Rx Participant: No New Discharge Prescriptions: Continue Norgestimate-Ethinyl Estradiol [Tri-Sprintec Tablet] 1 tab PO DAILY Ergocalciferol [Vitamin D2 (DRISDOL)] 50,000 unit PO COPELAND Escitalopram [Lexapro] 10 mg PO DAILY@1500 Changed Omeprazole [PriLOSEC] 40 mg PO BID #60 cap Discharge Medication List Ergocalciferol [Vitamin D2 (DRISDOL)] 50,000 unit PO COPELAND 10/21/19 [History] Escitalopram [Lexapro] 10 mg PO DAILY@1500 10/21/19 [History] Norgestimate-Ethinyl Estradiol [Tri-Sprintec Tablet] 1 tab PO DAILY 10/21/19 [History] Omeprazole [PriLOSEC] 40 mg PO BID #60 cap 11/19/19 [Rx] Follow up Appointment(s)/Referral(s): Andrey Humphries MD [Primary Care Provider] - 11/22/19 9:30 am Jennifer Gaytan MD [STAFF PHYSICIAN] - 1 Week Patient Instructions/Handouts: Dehydration (DC), Acute Abdominal Pain (DC) Activity/Diet/Wound Care/Special Instructions: D/C ok with Discharge Disposition: HOME SELF-CARE
== END 2019-11-19 18:33 | disposition home or self-care (01) ==
LOC: EC 16:07 → 4SSUR 19:18 → OBSVTOIN 11-19 09:10 → INTOOBSV 11-19 09:10 → UNDODISOB 11-19 18:33
PROVIDERS: ADMIT Hospitalist; ATTEND Hospitalist
DX: K21.9 Gastro-esophageal reflux disease without esophagitis (principal); E83.52 Hypercalcemia; E16.1 Other hypoglycemia; D72.829 Elevated white blood cell count, unspecified; E88.89 Other specified metabolic disorders; E86.0 Dehydration; F32.9 Major depressive disorder, single episode, unspecified; Z03.818 Encounter for observation for suspected exposure to other biological agents ruled out; R63.4 Abnormal weight loss; Z68.25 Body mass index [BMI] 25.0-25.9, adult; R74.8 Abnormal levels of other serum enzymes; Z90.49 Acquired absence of other specified parts of digestive tract; Z96.0 Presence of urogenital implants; Z98.890 Other specified postprocedural states; Z79.3 Long term (current) use of hormonal contraceptives; Z79.899 Other long term (current) drug therapy
CPT/HCPCS: 96376 ×3; 96361 ×3; 96375 ×2; 96374; 99285; 36415; 80053 ×3; 82150; 83605; 83690; 85025 ×3; 81001; 81025; 74018; 76705; 74181; G0378 ×3; U0003; J1200; J2765 ×2; J2405 ×3; J1170 ×3

== ENCOUNTER 2020-05-24 23:23 | Observation (INO) | payer OTHER ==
[2020-05-24] MEDS ORDERED: LORazepam 1 MG TAB PO STA (23:54)
[2020-05-24] MEDS ORDERED: METOCLOPRAMIDE 5 MG/ML 2 ML VIAL IVP STA (23:54)
[2020-05-24] MEDS ORDERED: SODIUM CHLORIDE 0.9% 500 ML 500 ML IV STA (23:54)
[2020-05-25 00:07] LABS: Basophils # (A) 0.1 k/uL (0-0.2); Basophils % (A) 1 %; Eosinophils # (A) 0.1 k/uL (0-0.7); Eosinophils % (A) 0 %; HGB 14.8 gm/dL (11.4-16.0); Lymphocytes # (A) 2.3 k/uL (1.0-4.8); Lymphocytes % (A) 10 %; MCH 31.7 pg (25.0-35.0); MCHC 34.4 g/dL (31.0-37.0); MCV 92.1 fL (80.0-100.0); Mean Platelet Volume 8.1; Monocytes # (A) 0.7 k/uL (0-1.0); Monocytes % (A) 3 %; Neutrophils # (A) 19.2 k/uL (1.3-7.7); Neutrophils % (A) 85 %; Platelet Count 336 k/uL (150-450); RBC 4.66 m/uL (3.80-5.40); RDW 13.4 % (11.5-15.5); WBC 22.6 k/uL (3.8-10.6)
[2020-05-25 00:20] LABS: ALT 20 U/L (4-34); AST 27 U/L (14-36); African American GFR (CKD) >90 (>60 ml/min/1.73 sqM); Albumin 5.2 g/dL (3.5-5.0); Alkaline Phosphatase 87 U/L (38-126); Anion Gap 15 mmol/L; Blood Urea Nitrogen 10 mg/dL (7-17); Calcium 10.8 mg/dL (8.4-10.2); Carbon Dioxide 15 mmol/L (22-30); Chloride 107 mmol/L (98-107); Glucose 193 mg/dL (74-99); Lipase 120 U/L (23-300); Non-African American GFR(CKD) >90 (>60 ml/min/1.73 sqM); Potassium 3.6 mmol/L (3.5-5.1); Sodium 137 mmol/L (137-145); Total Bilirubin 0.8 mg/dL (0.2-1.3); Total Protein 8.7 g/dL (6.3-8.2)
[2020-05-25] MEDS ORDERED: SODIUM CHLORIDE 0.9% 1,000 ML IV ONE (00:45)
--- NOTE | 2020-05-25 00:53 | XR ---
EXAM: XR Chest, 1 View CLINICAL HISTORY: ITS.REASON XR Reason: abdominal pain TECHNIQUE: Frontal view of the chest. COMPARISON: 04/22/2015 FINDINGS: Lungs: Unremarkable. No consolidation. Pleural space: Unremarkable. No pneumothorax. Heart: Unremarkable. No cardiomegaly. Mediastinum: Unremarkable. Bones/joints: Unremarkable. IMPRESSION: No acute pulmonary process.
[2020-05-25] MEDS ORDERED: ONDANSETRON 4 MG/2 ML VIAL IVP STA (00:58)
[2020-05-25 01:13] LABS: Appearance,Urine Clear (Clear); Bilirubin,Urine Negative (Negative); Blood,Urine Moderate (Negative); Color,Urine Yellow; Glucose,Urine (UA) 1+ (Negative); Hyaline Casts,Urine 3 /lpf (0-2); Leukocyte Esterase,Urine Negative (Negative); Mucus,Urine Few /hpf; Nitrite,Urine Negative (Negative); Protein,Urine Trace (Negative); RBC,Urine 128 /hpf (0-5); Squamous Epithelial Cell,Urine 3 /hpf (0-4); Urobilinogen,Urine <2.0 mg/dL (<2.0); WBC,Urine 3 /hpf (0-5)
[2020-05-25 01:14] LABS: Ketones,Urine 3+ (Negative)
[2020-05-25] MEDS ORDERED: MORPHINE SULFATE 4 MG/ML SYRINGE IVP STA (01:32)
[2020-05-25] MEDS ORDERED: NALOXONE 0.4 MG/ML 1 ML VIAL IV PRN (01:37)
[2020-05-25] MEDS ORDERED: ONDANSETRON 4 MG/2 ML VIAL IVP PRN (01:37)
--- NOTE | 2020-05-25 01:53 | ED ---
General Adult HPI - General Chief complaint: Nausea/Vomiting/Diarrhea Stated complaint: Vomiting, ABD Time Seen by Provider: 05/24/20 23:36 Source: patient, RN notes reviewed, old records reviewed Mode of arrival: wheelchair Limitations: no limitations - History of Present Illness Initial comments: 24-year-old female patient to ED for evaluation of multiple complaints. She reports that ever since she got her gallbladder removed about 6 months ago she has been having nausea and vomiting she feels that she has been losing weight she also been having daily chest tightness. She reports that she is very anxious on daily basis. She reports nausea and vomiting. The last couple of days the nausea and vomiting has been worse. Denies abdominal pain. Denies any other acute complaints. Systemic: Pt denies fatigue, fever/chills, rash. Pt denies weakness, night sweats, weight loss. Neuro: Pt denies headache, visual disturbances, syncope or pre-syncope. HEENT: Pt denies ocular discharge or irritation, otalgia, rhinorrhea, pharyngitis or notable lymphadenopathy. Cardiopulmonary: Pt denies chest pain, SOB, heart palpitations, dyspnea on exertion. Abdominal/GI: Pt denies abdominal pain, n/v/d. : Pt denies dysuria, burning w/ urination, frequency/urgency. Denies new onset urinary or bowel incontinence. MSK: Pt denies myalgia, loss of strength or function in extremities. Neuro: Pt denies new onset weakness, paresthesias. - Related Data Home Medications Medication Instructions Recorded Confirmed Ergocalciferol [Vitamin D2 50,000 unit PO COPELAND 10/21/19 11/17/19 (DRISDOL)] Escitalopram [Lexapro] 10 mg PO DAILY@1500 10/21/19 11/17/19 Norgestimate-Ethinyl Estradiol 1 tab PO DAILY 10/21/19 11/17/19 [Tri-Sprintec Tablet] Previous Rx's Medication Instructions Recorded Omeprazole [PriLOSEC] 40 mg PO BID #60 cap 11/19/19 Allergies Allergy/AdvReac Type Severity Reaction Status Date / Time No Known Allergies Allergy Verified 05/24/20 23:28 Review of Systems ROS Statement: Those systems with pertinent positive or pertinent negative responses have been documented in the HPI. ROS Other: All systems not noted in ROS Statement are negative. Past Medical History Past Medical History: GERD/Reflux Additional Past Medical History / Comment(s): GERD History of Any Multi-Drug Resistant Organisms: None Reported Past Surgical History: Cholecystectomy Additional Past Surgical History / Comment(s): ureter stent placed for obstruction Past Anesthesia/Blood Transfusion Reactions: No Reported Reaction Past Psychological History: No Psychological Hx Reported Smoking Status: Former smoker Past Alcohol Use History: None Reported Past Drug Use History: Marijuana General Exam - General Exam Comments Initial Comments: Constitutional: NAD, AOX3, Pt has pleasant affect. HEENT: NC/AT, trachea midline, neck supple, no lymphadenopathy. External ears appear normal, without discharge. Mucous membranes moist. Eyes PERRLA, EOM intact. There is no scleral icterus. No pallor noted. Cardiopulmonary: RRR, no murmurs, rubs or gallops, no JVD noted. Lungs CTAB in anterior and posterior solitario. No peripheral edema. Abdominal exam: Abdomen soft and non-distended. Abdomen non-tender to palpation in all 4 quadrants. Bowel sounds active in LLQ. No hepatosplenomegaly. No ecchymosis Neuro: CN II-XII grossly intact. No nuchal rigidity. No raccon eyes, no avalos sign, no hemotympanum. No cervical spinal tenderness. MSK: No posterior calf tenderness bilaterally, homans sign negative bilaterally. Posterior tibialis and radial pulse +2 bilaterally. Sensation intact in upper and lower extremities. Full active ROM in upper and lower extremities, 5/5 stregnth. Limitations: no limitations Course Vital Signs 05/24/20 05/24/20 23:24 23:44 Temperature 97.7 F Pulse Rate 100 Respiratory 36 H Rate Blood Pressure 144/107 145/82 O2 Sat by Pulse 99 Oximetry Medical Decision Making - Medical Decision Making 24-year-old female patient ED for evaluation multiple complaints chest tightness, nausea vomiting, anxiety. Physical exam negative for acute pathology. Laboratory investigations revealed a leukocytosis of 22, hyper glycemia 193, bicarbonate 15, UA displays 3+ ketones 1+ glucose. Dimer, troponin negative. EKG is nonischemic. CXR negative for acute pathology. Patient will be admitted for further evaluation. Case discussed with Dr. Asif. - Lab Data Result diagrams: 05/24/20 23:58 05/24/20 23:58 Lab Results 07/25/19 05/24/20 05/24/20 Range/Units 23:58 23:58 23:58 WBC 22.6 H (3.8-10.6) k/uL RBC 4.66 (3.80-5.40) m/uL Hgb 14.8 (11.4-16.0) gm/dL Hct 43.0 (34.0-46.0) % MCV 92.1 (80.0-100.0) fL MCH 31.7 (25.0-35.0) pg MCHC 34.4 (31.0-37.0) g/dL RDW 13.4 (11.5-15.5) % Plt Count 336 (150-450) k/uL MPV 8.1 Neutrophils % 85 % Lymphocytes % 10 % Monocytes % 3 % Eosinophils % 0 % Basophils % 1 % Neutrophils # 19.2 H (1.3-7.7) k/uL Lymphocytes # 2.3 (1.0-4.8) k/uL Monocytes # 0.7 (0-1.0) k/uL Eosinophils # 0.1 (0-0.7) k/uL Basophils # 0.1 (0-0.2) k/uL D-Dimer (<0.60) mg/L FEU Sodium 137 (137-145) mmol/L Potassium 3.6 (3.5-5.1) mmol/L Chloride 107 (98-107) mmol/L Carbon Dioxide 15 L (22-30) mmol/L Anion Gap 15 mmol/L BUN 10 (7-17) mg/dL Creatinine 0.65 (0.52-1.04) mg/dL Est GFR (CKD-EPI)AfAm >90 (>60 ml/min/1.73 sqM) Est GFR (CKD-EPI)NonAf >90 (>60 ml/min/1.73 sqM) Glucose 193 H (74-99) mg/dL Calcium 10.8 H (8.4-10.2) mg/dL Total Bilirubin 0.8 (0.2-1.3) mg/dL AST 27 (14-36) U/L ALT 20 (4-34) U/L Alkaline Phosphatase 87 (38-126) U/L Troponin I <0.012 (0.000-0.034) ng/mL Total Protein 8.7 H (6.3-8.2) g/dL Albumin 5.2 H (3.5-5.0) g/dL Lipase 120 (23-300) U/L Urine Color Urine Appearance (Clear) Urine pH (5.0-8.0) Ur Specific [place] (1.001-1.035) Urine Protein (Negative) Urine Glucose (UA) (Negative) Urine Ketones (Negative) Urine Blood (Negative) Urine Nitrite (Negative) Urine Bilirubin (Negative) Urine Urobilinogen (<2.0) mg/dL Ur Leukocyte Esterase (Negative) Urine RBC (0-5) /hpf Urine WBC (0-5) /hpf Ur Squamous Epith Cells (0-4) /hpf Hyaline Casts (0-2) /lpf Urine Mucus (None) /hpf Urine HCG, Qual (Not Detectd) 05/25/20 05/25/20 05/25/20 Range/Units 00:24 00:52 00:52 WBC (3.8-10.6) k/uL RBC (3.80-5.40) m/uL Hgb (11.4-16.0) gm/dL Hct (34.0-46.0) % MCV (80.0-100.0) fL MCH (25.0-35.0) pg MCHC (31.0-37.0) g/dL RDW (11.5-15.5) % Plt Count (150-450) k/uL MPV Neutrophils % % Lymphocytes % % Monocytes % % Eosinophils % % Basophils % % Neutrophils # (1.3-7.7) k/uL Lymphocytes # (1.0-4.8) k/uL Monocytes # (0-1.0) k/uL Eosinophils # (0-0.7) k/uL Basophils # (0-0.2) k/uL D-Dimer 0.21 (<0.60) mg/L FEU Sodium (137-145) mmol/L Potassium (3.5-5.1) mmol/L Chloride (98-107) mmol/L Carbon Dioxide (22-30) mmol/L Anion Gap mmol/L BUN (7-17) mg/dL Creatinine (0.52-1.04) mg/dL Est GFR (CKD-EPI)AfAm (>60 ml/min/1.73 sqM) Est GFR (CKD-EPI)NonAf (>60 ml/min/1.73 sqM) Glucose (74-99) mg/dL Calcium (8.4-10.2) mg/dL Total Bilirubin (0.2-1.3) mg/dL AST (14-36) U/L ALT (4-34) U/L Alkaline Phosphatase (38-126) U/L Troponin I (0.000-0.034) ng/mL Total Protein (6.3-8.2) g/dL Albumin (3.5-5.0) g/dL Lipase (23-300) U/L Urine Color Yellow Urine Appearance Clear (Clear) Urine pH 6.0 (5.0-8.0) Ur Specific [place] 1.020 (1.001-1.035) Urine Protein Trace H (Negative) Urine Glucose (UA) 1+ H (Negative) Urine Ketones 3+ H (Negative) Urine Blood Moderate H (Negative) Urine Nitrite Negative (Negative) Urine Bilirubin Negative (Negative) Urine Urobilinogen <2.0 (<2.0) mg/dL Ur Leukocyte Esterase Negative (Negative) Urine RBC 128 H (0-5) /hpf Urine WBC 3 (0-5) /hpf Ur Squamous Epith Cells 3 (0-4) /hpf Hyaline Casts 3 H (0-2) /lpf Urine Mucus Few H (None) /hpf Urine HCG, Qual Not Detected (Not Detectd) - EKG Data -: EKG Interpreted by Me (and Dr. Asif ) EKG Comments: ventricular rate 75, [place] interval 128, QRS 90, QT/QTC 394/439. Normal sensory and sensory exam. Normal EKG. No concern for acute ischemia. Disposition Clinical Impression: Ketosis, Hyperglycemia, Nausea and vomiting, Chest tightness Disposition: ADMITTED IP TO THIS HOSP Condition: Fair Is patient prescribed a controlled substance at d/c from ED?: No Referrals: Andrey Humphries MD [Primary Care Provider] - 1-2 days
[2020-05-25] MEDS: SODIUM CHLORIDE 0.9% 1,000 ML IV SCH ×3 (03:04→14:54)
[2020-05-25] MEDS ORDERED: MORPHINE SULFATE 2 MG/ML SYRINGE IVP PRN (03:04)
[2020-05-25 03:51] LABS: Glucose,Whole Blood 93 mg/dL (75-99)
[2020-05-25 08:18] LABS: Glucose,Whole Blood 87 mg/dL (75-99)
[2020-05-25 08:45] LABS: Basophils # (A) 0.1 k/uL (0-0.2); Basophils % (A) 0 %; Eosinophils % (A) 0 %; HCT 36.4 % (34.0-46.0); HGB 12.1 gm/dL (11.4-16.0); Lymphocytes # (A) 1.7 k/uL (1.0-4.8); Lymphocytes % (A) 10 %; MCH 31.5 pg (25.0-35.0); MCHC 33.3 g/dL (31.0-37.0); MCV 94.4 fL (80.0-100.0); Mean Platelet Volume 7.7; Monocytes # (A) 0.7 k/uL (0-1.0); Monocytes % (A) 5 %; Neutrophils # (A) 13.5 k/uL (1.3-7.7); Neutrophils % (A) 84 %; Platelet Count 220 k/uL (150-450); RBC 3.85 m/uL (3.80-5.40); RDW 13.5 % (11.5-15.5); WBC 16.1 k/uL (3.8-10.6)
[2020-05-25 08:59] LABS: ALT 15 U/L (4-34); AST 21 U/L (14-36); African American GFR (CKD) >90 (>60 ml/min/1.73 sqM); Albumin 3.7 g/dL (3.5-5.0); Alkaline Phosphatase 50 U/L (38-126); Anion Gap 5 mmol/L; Blood Urea Nitrogen 7 mg/dL (7-17); Calcium 8.6 mg/dL (8.4-10.2); Carbon Dioxide 23 mmol/L (22-30); Chloride 111 mmol/L (98-107); Glucose 88 mg/dL (74-99); Non-African American GFR(CKD) >90 (>60 ml/min/1.73 sqM); Potassium 4.5 mmol/L (3.5-5.1); Sodium 139 mmol/L (137-145); Total Bilirubin 0.7 mg/dL (0.2-1.3); Total Protein 6.5 g/dL (6.3-8.2)
[2020-05-25] MEDS ORDERED: PANTOPRAZOLE 40 MG TABLET PO PRN (11:53)
[2020-05-25] MEDS ORDERED: CALCIUM CARBONATE 500 MG CHEWABLE PO PRN (11:55)
[2020-05-25] MEDS: NITROFURANTOIN MONOHYD/M-CRYST 100 MG CAP PO SCH ×2 (12:02→21:32)
[2020-05-25] MEDS ORDERED: AMITRIPTYLINE HCL 10 MG TAB PO PRN (12:21)
--- NOTE | 2020-05-25 13:03 | XR ---
EXAMINATION TYPE: XR abdomen acute w cxr DATE OF EXAM: 05/25/2020 COMPARISON: None HISTORY: Abdomen pain vomiting nausea TECHNIQUE: Acute abdominal series with frontal chest upright and supine views of the abdomen FINDINGS: Some mild small bowel air-filled loops are in the left midabdomen. No suspicious air-fluid levels or differential air-fluid levels are evident. No free air is evident. Normal colonic bowel gas is present. No mass effect is evident. IMPRESSION: 1. Nonspecific acute abdominal series
[2020-05-25 14:02] LABS: Hemoglobin A1C 5.4 % (4.0-6.0)
--- NOTE | 2020-05-25 14:04 | P.CN ---
Psychiatric Consult - . Consult date: 05/25/20 Consult:: IDENTIFYING DATA: This patient is a go, employed, 24-year-old female who was admitted for nausea/vomiting. HISTORY OF PRESENT ILLNESS: Psychiatry has been consulted for evaluation of anxiety and panic disorder. The patient reports that she has been having episodes of nausea and vomiting for about 1 year. She states that since she had her gallbladder removed 6 months ago nausea and vomiting has been worsening and she has been losing weight. She expresses that she has been having chest tightness along with his nausea and vomiting. She reports that these episodes would last "all night." She states that this is episodic in nature and these episodes would also occur in 15 minute intervals. She is unable to identify any exacerbating factors. When explored, hot showers tend to alleviate these symptoms. In regards to mood disorder, the patient reports a history of depression for which she is managed with Lexapro. She reports that she has had significant symptoms of depression including low mood, decreased motivation, low energy, and difficulty sleeping. She also expresses that she occasionally has suicidal thoughts but denies any suicidal intention or plan. She reports no prior attempts at suicide. She denies any homicidal ideation, intention, and/or plan. She denies any auditory or visual hallucinations. In regards to substance use, the patient reports smoking marijuana daily. She denies any sign ificant tobacco use. She reports no significant alcohol use. She denies any other illicit drug use. PAST PSYCHIATRIC HISTORY: Patient has a a history of depression. Patient reports only previously trying Lexapro. She was open to outpatient therapy services in the past but has not done so since moving. Patient denies any previous psychiatric hospitalizations. Patient denies any history of suicide attempts in the past. PAST MEDICAL HISTORY: GERD/reflux. ALLERGIES: NKDA CHEMICAL DEPENDENCY HISTORY: Patient reports smoking marijuana daily. Patient currently does not smoke. FAMILY PSYCHIATRIC/SUBSTANCE USE HISTORY: denies SOCIAL HISTORY: Patient is currently living in [place], [place] with a roommate. She is currently employed with [employer]. She attended some college. She is single with no children. MENTAL STATUS EXAM: General Appearance: Patient appears to be stated age is alert, pleasant, and cooperative. Patient appears to have good hygiene and grooming wearing hospital gown with good eye contact. Behavior: Patient is calmly lying in bed without any agitated behavior. Speech: Patient's speech is fluent and nonpressured. Mood/Affect: Patient reports their mood is "okay", affect is congruent, euthymic, and pleasant. Suicidality/Homicidality: Patient denies having any suicidal or homicidal ideation intent or plan. Perceptions: Patient denies any visual hallucinations and denies any auditory hallucinations Though content/process: There is no evidence of any delusional thought content and thought process is linear and goal-directed. Memory and concentration: AOX3, grossly intact for the purposes of this session. Can spell "WORLD" backwards Judgment and insight: Fair IMPRESSIONS: Cannabinoid hyperemesis syndrome Major depressive disorder Anxiety disorder unspecified PLAN: Patient was counseled and educated on substance use including the use of marijuana. We discussed at length that marijuana may contribute to hyperemesis syndrome. The patient does report that hot showers and spending time in the hot shower tends to alleviate her nausea and vomiting symptoms. She is a daily smoker of marijuana. The patient appears to be pre-contemplative at this time about quitting marijuana in general. -At this time patient DOES NOT meet criteria for inpatient psychiatric admission. -Would recommend the following medication changes/additions: We will increase Lexapro to 20 mg by mouth daily for depression/anxiety Agree with amitriptyline 10 mg by mouth at bedtime when necessary for anxiety. -Psychiatry will sign off at this point, please contact with any questions. 05/25/20 13:58
[2020-05-25] MEDS ORDERED: ESCITALOPRAM 20 MG TAB PO SCH (15:00)
[2020-05-25] MEDS ORDERED: ESCITALOPRAM 10 MG TAB PO SCH (15:00)
--- NOTE | 2020-05-25 20:58 | P.HPIM ---
History of Present Illness H&P Date: 05/25/20 Chief Complaint: Chest pressure History of presenting complaint: This is a pleasant 24-year-old patient of Dr. Humphries. Patient on October 21 underwent a cholecystectomy by Dr. Chavez. ERCP with sphincterotomy by Dr. Aga Gaytan. Was feeling subsequently reflux symptoms abdominal pain. Underwent MRCP. Unremarkable. Patient is told to change her diet make it more healthy. Patient says that has been having episodes of squeezing sensation in the chest. That improved as above. Her hands dose: The. And she feels in the bit of loss state of mind. As if she is a bit drunk. This may happen up to 3-4 times a week. Feels very anxious. She has just followed up with Dr. Max about 2 weeks ago. She was told this could be anxiety. She does take medicine for depression. Does not sleep well. His sleep in the day sometimes. She is of anxious disposition. She has lost some weight. Review of systems: GEN.: Some weight loss EYES: None HEENT: None NECK: None RESPIRATORY: None CARDIOVASCULAR: As above GASTROINTESTINAL: As above GENITOURINARY: None MUSCULOSKELETAL: None LYMPHATICS: None HEMATOLOGICAL: None PSYCHIATRY: Anxious and some depression NEUROLOGICAL: Poor sleep cycle Past medical history to include: GERD, depression, Social history: Does not smoke or drink alcohol. No recreational drugs. Lives with friend Mona Family history: Reviewed, noncontributory to presentation Physical examination: VITAL SIGNS: 96.9, 67, 16, 134/83, 99% room air GENERAL: BMI 20.2, sitting up bed, comfortable EYES: Pupils equal. Conjunctiva normal. HEENT: External appearance of nose and ears normal, oral cavity grossly normal. NECK: JVD not raised; masses not palpable. HEART: First and second heart sounds are normal; no edema. LUNGS: Respiratory rate normal; clear to auscultation. ABDOMEN: Soft, no epigastric tenderness, no guarding or rigidity,, liver spleen not palpable, no masses palpable. PSYCH: [Alert and oriented x3; mood and affect slightly anxious NEUROLOGICAL: Cranial nerves grossly intact; no facial asymmetry, power and sensation grossly intact. LYMPHATICS: No lymph nodes palpable in the axilla and neck INVESTIGATIONS, reviewed in the clinical context: White count 22.6 hemoglobin 14.8 platelets 336 potassium 3.6 creatinine 0.65 Calcium 10.8 albumin 5.2 UA positive for ketones and 3+ etc. Assessment: -Patient getting episodes of chest pressure going up to her throat hands and feet: Hands and feet cold up. Possibly panic attack. -History - cholecystectomy and's ERCP with sphincterotomy. -Hypercalcemia from dehydration and taking Tums -Leukocytosis likely reactive -Insomnia with sleep cycle disorder Plan: Patient has followed up with her surgeon Dr. Chavez and also by Dr. Aga Gaytan from GI. Very recently. We'll get a psychiatry consultation. Lifestyle management was discussed with the patient. Past Medical History Past Medical History: GERD/Reflux Additional Past Medical History / Comment(s): GERD History of Any Multi-Drug Resistant Organisms: None Reported Past Surgical History: Cholecystectomy Additional Past Surgical History / Comment(s): ureter stent placed for obstruction Past Anesthesia/Blood Transfusion Reactions: No Reported Reaction Past Psychological History: Anxiety, Depression Smoking Status: Former smoker, Vaper Past Alcohol Use History: None Reported Past Drug Use History: Marijuana - Past Family History Mother Family Medical History: No Reported History Medications and Allergies Home Medications Medication Instructions Recorded Confirmed Type Amitriptyline HCl [Elavil] 10 mg PO HS PRN 05/25/20 05/25/20 History Calcium Carbonate [Tums] 1,000 mg PO QID PRN chew 05/25/20 Rx Escitalopram [Lexapro] 20 mg PO DAILY@1500 #30 tab 05/25/20 Rx Nitrofurantoin Monohyd/M-Cryst 100 mg PO Q12HR 05/25/20 05/25/20 History [Macrobid] Pantoprazole Sodium [Protonix] 40 mg PO HS PRN #0 05/25/20 05/25/20 Rx Allergies Allergy/AdvReac Type Severity Reaction Status Date / Time No Known Allergies Allergy Verified 05/25/20 08:29 Physical Exam Vitals: Vital Signs Temp Pulse Pulse Pulse Resp BP BP 05/25/20 12:05 97.0 F L 75 16 100/49 05/25/20 08:00 97.0 F L 72 16 104/56 05/25/20 03:13 96.9 F L 67 16 134/83 05/24/20 23:44 145/82 05/24/20 23:24 97.7 F 100 36 H 144/107 Pulse Ox 05/25/20 12:05 98 05/25/20 08:00 98 05/25/20 03:13 99 05/24/20 23:44 05/24/20 23:24 99 Intake and Output 05/24/20 05/25/20 05/25/20 22:59 06:59 14:59 Intake Total 120 Output Total 350 Balance -350 120 Intake: Oral 120 Output: Urine 350 Other: Voiding Method Toilet # Voids 1 Weight 48 kg Results CBC & Chem 7: 05/25/20 08:15 05/25/20 08:15 Labs: Abnormal Lab Results - Last 24 Hours (Table) 05/24/20 05/24/20 05/25/20 Range/Units 23:58 23:58 00:52 WBC 22.6 H (3.8-10.6) k/uL Neutrophils # 19.2 H (1.3-7.7) k/uL Chloride (98-107) mmol/L Carbon Dioxide 15 L (22-30) mmol/L Glucose 193 H (74-99) mg/dL Calcium 10.8 H (8.4-10.2) mg/dL Total Protein 8.7 H (6.3-8.2) g/dL Albumin 5.2 H (3.5-5.0) g/dL Urine Protein Trace H (Negative) Urine Glucose (UA) 1+ H (Negative) Urine Ketones 3+ H (Negative) Urine Blood Moderate H (Negative) Urine RBC 128 H (0-5) /hpf Hyaline Casts 3 H (0-2) /lpf Urine Mucus Few H (None) /hpf 05/25/20 05/25/20 Range/Units 08:15 08:15 WBC 16.1 H (3.8-10.6) k/uL Neutrophils # 13.5 H (1.3-7.7) k/uL Chloride 111 H (98-107) mmol/L Carbon Dioxide (22-30) mmol/L Glucose (74-99) mg/dL Calcium (8.4-10.2) mg/dL Total Protein (6.3-8.2) g/dL Albumin (3.5-5.0) g/dL Urine Protein (Negative) Urine Glucose (UA) (Negative) Urine Ketones (Negative) Urine Blood (Negative) Urine RBC (0-5) /hpf Hyaline Casts (0-2) /lpf Urine Mucus (None) /hpf Thrombosis Risk Factor Assmnt - Choose All That Apply Any of the Below Risk Factors Present?: No Other Risk Factors: No Thrombosis Risk Factor Assessment Level: Very Low Risk
--- NOTE | 2020-05-25 21:01 | P.DS ---
Providers Date of admission: 05/25/20 01:52 Expected date of discharge: 05/25/20 Attending physician: Franklin Pablo Consults: 05/25/20 12:19 Consult Physician Routine Consulting Provider: Samreen Chavez Consult Reason/Comments: abd pain- s/p joslyn Do you want consulting provider notified?: Yes 05/25/20 12:20 Consult Physician Routine Consulting Provider: Sacha Pérez Consult Reason/Comments: persistent nausea vomiting Do you want consulting provider notified?: Yes 05/25/20 13:11 Consult Physician Routine Consulting Provider: Psychiatry - [facility] Psych[facility]ry Consult Reason/Comments: Panic attacks Do you want consulting provider notified?: Yes Primary care physician: Andrey [facility] Course: Chief Complaint: Chest pressure History of presenting complaint: This is a pleasant 24-year-old patient of Dr. Humphries. Patient on October 21 underwent a cholecystectomy by Dr. Chavez. ERCP with sphincterotomy by Dr. Aga Gaytan. Was feeling subsequently reflux symptoms abdominal pain. Underwent MRCP. Unremarkable. Patient is told to change her diet make it more healthy. Patient says that has been having episodes of squeezing sensation in the chest. That improved as above. Her hands dose: The. And she feels in the bit of loss state of mind. As if she is a bit drunk. This may happen up to 3-4 times a week. Feels very anxious. She has just followed up with Dr. Max about 2 weeks ago. She was told this could be anxiety. She does take medicine for depression. Does not sleep well. His sleep in the day sometimes. She is of anxious disposition. She has lost some weight. Patient episodes of felt to be psychosomatic/panic attacks. She was told to use a brown paper back educated about the same. Seen by psychiatrist Dr. Eisenberg. Lexapro increased. Patient educated about mindfulness to improve her sleep cycle. Diet also discussed at length. Consultation: Psychiatry-Dr. Eisenberg Physical examination: VITAL SIGNS: 96.9, 67, 16, 134/83, 99% room air GENERAL: BMI 20.2, sitting up bed, comfortable EYES: Pupils equal. Conjunctiva normal. HEENT: External appearance of nose and ears normal, oral cavity grossly normal. NECK: JVD not raised; masses not palpable. HEART: First and second heart sounds are normal; no edema. LUNGS: Respiratory rate normal; clear to auscultation. ABDOMEN: Soft, no epigastric tenderness, no guarding or rigidity,, liver spleen not palpable, no masses palpable. PSYCH: Alert and oriented x3; mood and affect slightly anxious INVESTIGATIONS, reviewed in the clinical context: White count 22.6 hemoglobin 14.8 platelets 336 potassium 3.6 creatinine 0.65 Calcium 10.8 albumin 5.2 UA positive for ketones and 3+ etc. Assessment: -Patient getting episodes of chest pressure going up to her throat hands and feet: Hands and feet cold up. Possibly panic attack. -History - cholecystectomy and's ERCP with sphincterotomy. -Hypercalcemia from dehydration and taking Tums -Leukocytosis likely reactive -Insomnia with sleep cycle disorder Disposition: Home Patient Condition at Discharge: Stable Plan - Discharge Summary Discharge Rx Participant: No New Discharge Prescriptions: New Escitalopram [Lexapro] 20 mg PO DAILY@1500 #30 tab Calcium Carbonate [Tums] 1,000 mg PO QID PRN chew PRN Reason: Heartburn Continue Nitrofurantoin Monohyd/M-Cryst [Macrobid] 100 mg PO Q12HR Amitriptyline HCl [Elavil] 10 mg PO HS PRN PRN Reason: Anxiety Changed Pantoprazole Sodium [Protonix] 40 mg PO HS PRN #0 PRN Reason: Heartburn Discontinued Escitalopram [Lexapro] 10 mg PO DAILY@1500 Discharge Medication List Amitriptyline HCl [Elavil] 10 mg PO HS PRN 05/25/20 [History] Calcium Carbonate [Tums] 1,000 mg PO QID PRN chew 05/25/20 [Rx] Escitalopram [Lexapro] 20 mg PO DAILY@1500 #30 tab 05/25/20 [Rx] Nitrofurantoin Monohyd/M-Cryst [Macrobid] 100 mg PO Q12HR 05/25/20 [History] Pantoprazole Sodium [Protonix] 40 mg PO HS PRN #0 05/25/20 [Rx] Follow up Appointment(s)/Referral(s): dr LUIS [Other] - 3 Weeks Andrey Humphries MD [Primary Care Provider] - 1-2 days Activity/Diet/Wound Care/Special Instructions: healthy diet - no junk foods
[2020-05-26] MEDS: SODIUM CHLORIDE 0.9% 1,000 ML IV SCH (06:13)
[2020-05-26 08:38] VITALS: BP 123/78; PULSE 62; RESP 20; TEMP 97.6
[2020-05-26] MEDS: NITROFURANTOIN MONOHYD/M-CRYST 100 MG CAP PO SCH (09:09)
== END 2020-05-26 11:00 | disposition home or self-care (01) ==
LOC: EC 23:23 → 6PED 05-25 01:52
PROVIDERS: ADMIT Hospitalist; ATTEND Hospitalist
DX: R07.89 Other chest pain (principal); R11.2 Nausea with vomiting, unspecified; F12.90 Cannabis use, unspecified, uncomplicated; E86.0 Dehydration; E88.89 Other specified metabolic disorders; K21.9 Gastro-esophageal reflux disease without esophagitis; F32.9 Major depressive disorder, single episode, unspecified; F41.9 Anxiety disorder, unspecified; D72.829 Elevated white blood cell count, unspecified; R73.9 Hyperglycemia, unspecified; E83.52 Hypercalcemia; T47.1X5A Adverse effect of other antacids and anti-gastric-secretion drugs, initial encounter; R10.9 Unspecified abdominal pain; R63.4 Abnormal weight loss; Z68.20 Body mass index [BMI] 20.0-20.9, adult; G47.00 Insomnia, unspecified; Z79.899 Other long term (current) drug therapy; Z79.3 Long term (current) use of hormonal contraceptives; Z90.49 Acquired absence of other specified parts of digestive tract; Z87.891 Personal history of nicotine dependence
CPT/HCPCS: 96361 ×3; 96374; 96375; 99285; 36415; 93005; 85379; 80053; 83690; 84484; 85025; 81001; 81025; 83036; 74022; 71046; G0378 ×2; J2270; J2765; J2405

== ENCOUNTER 2020-09-19 15:59 | Emergency (ER) | payer OTHER ==
[2020-09-19 16:07] VITALS: PULSE 74; TEMP 98.1
[2020-09-19] MEDS ORDERED: ALPRAZolam 1 MG TAB PO STA (16:45)
[2020-09-19] MEDS ORDERED: ONDANSETRON ODT 8 MG TAB.RAPDIS PO STA (16:45)
[2020-09-19 17:26] VITALS: BP 106/68; RESP 18
[2020-09-19 17:34] LABS: Appearance,Urine Cloudy (Clear); Bacteria,Urine Rare /hpf; Bilirubin,Urine Negative (Negative); Blood,Urine Small (Negative); Color,Urine Yellow; Glucose,Urine (UA) Negative (Negative); Ketones,Urine 2+ (Negative); Leukocyte Esterase,Urine Negative (Negative); Mucus,Urine Many /hpf; Nitrite,Urine Negative (Negative); Protein,Urine 1+ (Negative); RBC,Urine 4 /hpf (0-5); Specific Gravity,Urine 1.023 (1.001-1.035); Squamous Epithelial Cell,Urine 25 /hpf (0-4); Urobilinogen,Urine <2.0 mg/dL (<2.0); WBC,Urine 1 /hpf (0-5)
[2020-09-19 17:36] LABS: Glucose,Whole Blood 114 mg/dL (75-99)
[2020-09-19 17:46] LABS: Amphetamine Screen,Urine Not Detected (NotDetected); Barbiturate Screen,Urine Not Detected (NotDetected); Benzodiazepines Screen,Urine Not Detected (NotDetected); Cocaine Screen,Urine Not Detected (NotDetected); Methadone Screen, Urine Not Detected (NotDetected); Opiate Screen,Urine Not Detected (NotDetected); Oxycodone Screen, Urine Not Detected (NotDetected); Phencyclidine Screen,Urine Not Detected (NotDetected); Tricyclic Antidepressant,Urine Not Detected (NotDetected); Urn Cannabinoid Scrn Detected (NotDetected)
--- NOTE | 2020-09-19 17:58 | ED ---
Anxiety HPI - General Chief Complaint: Anxiety Stated Complaint: anxiety Time Seen by Provider: 09/19/20 16:24 Source: patient Mode of arrival: ambulatory - History of Present Illness Initial Comments: Patient complains of anxiety. She has no homicidal or suicidal ideation. She denies any nausea or vomiting. She has no belly or back pain. She has no chest pain or pressure or tightness. - Related Data Home Medications: Home Medications Medication Instructions Recorded Confirmed Amitriptyline HCl [Elavil] 10 mg PO HS PRN 05/25/20 05/25/20 Nitrofurantoin Monohyd/M-Cryst 100 mg PO Q12HR 05/25/20 05/25/20 [Macrobid] Previous Rx's Medication Instructions Recorded Calcium Carbonate [Tums] 1,000 mg PO QID PRN chew 05/25/20 Escitalopram [Lexapro] 20 mg PO DAILY@1500 #30 tab 05/25/20 Pantoprazole Sodium [Protonix] 40 mg PO HS PRN #0 05/25/20 Allergies/Adverse Reactions: Allergies Allergy/AdvReac Type Severity Reaction Status Date / Time No Known Allergies Allergy Verified 09/19/20 16:07 Review of Systems ROS Statement: Those systems with pertinent positive or pertinent negative responses have been documented in the HPI. ROS Other: All systems not noted in ROS Statement are negative. Past Medical History Past Medical History: GERD/Reflux Additional Past Medical History / Comment(s): GERD, UTI History of Any Multi-Drug Resistant Organisms: None Reported Past Surgical History: Cholecystectomy Additional Past Surgical History / Comment(s): Cholecystectomy w/ ERCP on October 22, 2019. MRCP October 23, 2019. Ureteral stent placed for obstruction. Past Anesthesia/Blood Transfusion Reactions: No Reported Reaction Past Psychological History: Anxiety, Depression Smoking Status: Current every day smoker, Vaper Past Alcohol Use History: None Reported Past Drug Use History: Marijuana - Past Family History Mother Family Medical History: No Reported History General Exam Limitations: no limitations General appearance: alert, in no apparent distress Head exam: Present: atraumatic, normocephalic, normal inspection Eye exam: Present: normal appearance, PERRL, EOMI. Absent: scleral icterus, conjunctival injection, periorbital swelling ENT exam: Present: normal exam, mucous membranes moist Neck exam: Present: normal inspection. Absent: tenderness, meningismus, lymphadenopathy Respiratory exam: Present: normal lung sounds bilaterally. Absent: respiratory distress, wheezes, rales, rhonchi, stridor Cardiovascular Exam: Present: regular rate, normal rhythm, normal heart sounds. Absent: systolic murmur, diastolic murmur, rubs, gallop, clicks GI/Abdominal exam: Present: soft, normal bowel sounds. Absent: distended, tenderness, guarding, rebound, rigid Extremities exam: Present: normal inspection, full ROM, normal capillary refill. Absent: tenderness, pedal edema, joint swelling, calf tenderness Back exam: Present: normal inspection Neurological exam: Present: alert, oriented X3, CN II-XII intact Psychiatric exam: Present: normal affect, normal mood Skin exam: Present: warm, dry, intact, normal color. Absent: rash Course Vital Signs 09/19/20 09/19/20 16:03 17:24 Temperature 98.1 F Pulse Rate 74 74 Respiratory 20 18 Rate Blood Pressure 133/75 106/68 O2 Sat by Pulse 99 98 Oximetry Medical Decision Making - Medical Decision Making Patient presents with anxiety. Her exam is unremarkable. She has no evidence of acute psychosis. She denies homicidal or suicidal ideation. She is feeling better after oral alprazolam. She is stable for discharge. - Lab Data Lab Results 09/19/20 09/19/20 09/19/20 Range/Units 16:55 16:56 16:56 POC Glucose (mg/dL) 114 H (75-99) mg/dL POC Glu Grades 1 Thru 5 Teacher ID Deanne Waggoner Urine Color Yellow Urine Appearance Cloudy H (Clear) Urine pH 6.0 (5.0-8.0) Ur Specific [place] 1.023 (1.001-1.035) Urine Protein 1+ H (Negative) Urine Glucose (UA) Negative (Negative) Urine Ketones 2+ H (Negative) Urine Blood Small H (Negative) Urine Nitrite Negative (Negative) Urine Bilirubin Negative (Negative) Urine Urobilinogen <2.0 (<2.0) mg/dL Ur Leukocyte Esterase Negative (Negative) Urine RBC 4 (0-5) /hpf Urine WBC 1 (0-5) /hpf Ur Squamous Epith Cells 25 H (0-4) /hpf Urine Bacteria Rare H (None) /hpf Urine Mucus Many H (None) /hpf Urine HCG, Qual Not Detected (Not Detectd) Urine Opiates Screen Not Detected (NotDetected) Ur Oxycodone Screen Not Detected (NotDetected) Urine Methadone Screen Not Detected (NotDetected) Ur Propoxyphene Screen Not Detected (NotDetected) Ur Barbiturates Screen Not Detected (NotDetected) U Tricyclic Antidepress Not Detected (NotDetected) Ur Phencyclidine Scrn Not Detected (NotDetected) Ur Amphetamines Screen Not Detected (NotDetected) U Methamphetamines Scrn Not Detected (NotDetected) U Benzodiazepines Scrn Not Detected (NotDetected) Urine Cocaine Screen Not Detected (NotDetected) U Marijuana (THC) Screen Detected H (NotDetected) Disposition Clinical Impression: Acute anxiety Disposition: HOME SELF-CARE Condition: Good Instructions (If sedation given, give patient instructions): Generalized Anxiety Disorder (ED) Is patient prescribed a controlled substance at d/c from ED?: No Referrals: Andrey Humphries MD [Primary Care Provider] - 1-2 days
== END 2020-09-19 18:05 | disposition home or self-care (01) ==
LOC: EC 15:59
DX: F41.9 Anxiety disorder, unspecified (principal); F32.9 Major depressive disorder, single episode, unspecified; K21.9 Gastro-esophageal reflux disease without esophagitis; F17.290 Nicotine dependence, other tobacco product, uncomplicated; Z79.899 Other long term (current) drug therapy
CPT/HCPCS: 36415; 80306; 81001; 81025; 99284

== ENCOUNTER 2020-10-28 18:19 | Emergency (ER) | payer OTHER ==
[2020-10-28 18:23] VITALS: RESP 18; TEMP 98.2
[2020-10-28] MEDS ORDERED: ALPRAZolam 0.5 MG TAB PO STA (19:00)
--- NOTE | 2020-10-28 19:31 | ED ---
Anxiety HPI - General Chief Complaint: Anxiety Stated Complaint: anxiety Time Seen by Provider: 10/28/20 18:40 Source: patient Mode of arrival: ambulatory - History of Present Illness Initial Comments: Patient is a 24-year-old female with history of anxiety, presenting to the emergency Department with complaints of anxiety for the last few days. She states she is an issue with this for the last few years. She did follow up with her PCP yesterday who started her on 2 medications although she felt like she was very nauseous with one of the medications. She used to take trazodone and Zoloft but stopped his medications about 1-2 months ago. She states she did not feel like they were helping her so she didn't want to stay on them. She denies any suicidal or homicidal thoughts. She does admit to some intermittent chest tightness over the past few days but no chest pain or tightness today. She denies any nausea or vomiting. She does not believe she is . She denies any fevers or chills. She has no further complaints at this time. She states she does see a therapist, she also mentioned that she has a follow-up with her primary care physician and 3 days regarding yesterday's visit. Upon arrival to the ER, her vital signs are stable. - Related Data Home Medications: Home Medications Medication Instructions Recorded Confirmed DULoxetine HCL [Cymbalta] 30 mg PO DAILY 10/28/20 10/28/20 Metoclopramide [Reglan] 5 mg PO ACHS 10/28/20 10/28/20 Allergies/Adverse Reactions: Allergies Allergy/AdvReac Type Severity Reaction Status Date / Time No Known Allergies Allergy Verified 10/28/20 18:52 Review of Systems ROS Statement: Those systems with pertinent positive or pertinent negative responses have been documented in the HPI. ROS Other: All systems not noted in ROS Statement are negative. Past Medical History Past Medical History: GERD/Reflux Additional Past Medical History / Comment(s): GERD, UTI History of Any Multi-Drug Resistant Organisms: None Reported Past Surgical History: Cholecystectomy Additional Past Surgical History / Comment(s): Cholecystectomy w/ ERCP on October 22, 2019. MRCP October 23, 2019. Ureteral stent placed for obstruction. Past Anesthesia/Blood Transfusion Reactions: No Reported Reaction Past Psychological History: Anxiety, Depression Smoking Status: Current every day smoker, Vaper Past Alcohol Use History: None Reported Past Drug Use History: Marijuana - Past Family History Mother Family Medical History: No Reported History General Exam - General Exam Comments Initial Comments: GENERAL: Patient is well-developed and well-nourished. Patient is nontoxic and in no acute distress. HEAD: Atraumatic, normocephalic. EYES: Pupils equal round and reactive to light, extraocular movements intact, sclera anicteric, conjunctiva are normal. Eyelids were unremarkable. ENT: TMs normal, nares patent, oropharynx clear without exudates. Moist mucous membranes. NECK: Normal range of motion, supple without lymphadenopathy or JVD. LUNGS: Unlabored respirations. Breath sounds clear to auscultation bilaterally and equal. No wheezes rales or rhonchi. HEART: Regular rate and rhythm without murmurs, rubs or gallops. ABDOMEN: Soft, nontender, normoactive bowel sounds. No guarding, no rebound. No masses appreciated. : Deferred MUSCULOSKELETAL: Normal extremities with adequate strength and normal range of motion, no pitting or edema. No clubbing or cyanosis. NEUROLOGICAL: Patient is alert and oriented x 3. Motor and sensory are also intact. Cranial nerves II through XII grossly intact. Symmetrical smile. Normal speech, normal gait. PSYCH: Normal mood, normal affect. SKIN: Warm, Dry, normal turgor, no rashes or lesions noted. Limitations: no limitations Course Vital Signs 10/28/20 18:20 Temperature 98.2 F Pulse Rate 116 H Respiratory 18 Rate Blood Pressure 125/81 O2 Sat by Pulse 97 Oximetry Medical Decision Making - Medical Decision Making Patient is a 24-year-old female with history of anxiety presenting with anxiety increasing over the past few days. She did just have a follow-up with her PCP yesterday, they did some blood work and other testing, she has a follow-up appointment in 3 days. She presents today wanting something for anxiety today. Her doctor did prescribe her 2 new medications yesterday however she states they are making her sick. He denies any suicidal or homicidal thoughts. Patient does not appear to be acutely anxious on exam. HCG is negative, EKG shows no acute abnormalities. Patient was given 0.5 mg Xanax. She can follow- up with her PCP. She is in agreement this plan of care. Return parameters were discussed with her and she verbalized understanding. Case discussed with Dr. Lam. - Lab Data Lab Results 10/28/20 Range/Units 19:17 Urine HCG, Qual Not Detected (Not Detectd) - EKG Data EKG Comments: Normal sinus rhythm, normal ECG, no signs of acute process. Ventricular rate 73, AR interval 120, QT 348. Disposition Clinical Impression: Acute anxiety Disposition: HOME SELF-CARE Condition: Stable Instructions (If sedation given, give patient instructions): Generalized Anxiety Disorder (ED) Additional Instructions: Please return to the Emergency Department if symptoms worsen or any other concerns. Please follow-up with your PCP regarding continued treatment of your anxiety. Is patient prescribed a controlled substance at d/c from ED?: No Referrals: Andrey Humphries MD [Primary Care Provider] - 1-2 days Time of Disposition: 20:11
[2020-10-28 21:23] VITALS: BP 118/80; PULSE 90
== END 2020-10-28 20:20 | disposition home or self-care (01) ==
LOC: EC 18:19
DX: F41.9 Anxiety disorder, unspecified (principal); K21.9 Gastro-esophageal reflux disease without esophagitis; F17.290 Nicotine dependence, other tobacco product, uncomplicated; Z79.899 Other long term (current) drug therapy
CPT/HCPCS: 81025; 93005; 99283

== ENCOUNTER 2021-05-02 03:20 | Inpatient (IN) | payer MEDICAID, OTHER ==
[2021-05-02] MEDS ORDERED: LORazepam 1 MG TAB PO STA (03:53)
[2021-05-02] MEDS ORDERED: ONDANSETRON ODT 4 MG TAB PO STA (03:53)
[2021-05-02] MEDS ORDERED: MAG HYDROX/AL HYDROX/SIMETH 30 ML, HYOSCYAMINE ELIXIR 10 ML, LIDOCAINE VISCOUS 2% 10 ML PO STA ×3 (03:53)
--- NOTE | 2021-05-02 04:00 | ED ---
Anxiety HPI - General Source: patient Mode of arrival: ambulatory - History of Present Illness MD Complaint: anxiety, shortness of breath Onset/Timin -: hour(s) Symptoms: chest pain, extremity numbness/tingling, perioral numbness/tingling Place: home Severity: severe Quality: constant, similar to prior episodes Improves With: nothing Worsens With: nothing Associated symptoms: shortness of breath, nausea/vomiting <Carlyle Trejo - Last Filed: 05/02/21 06:22> <Lit Huffman - Last Filed: 05/02/21 13:39> - General Chief Complaint: Anxiety Stated Complaint: Vomiting, anxiety Time Seen by Provider: 05/02/21 03:33 - Related Data Home Medications: Home Medications Medication Instructions Recorded Confirmed PARoxetine [Paxil] 10 mg PO DAILY 05/02/21 05/02/21 QUEtiapine [SEROquel] 25 mg PO BID PRN 05/02/21 05/02/21 Allergies/Adverse Reactions: Allergies Allergy/AdvReac Type Severity Reaction Status Date / Time No Known Allergies Allergy Verified 05/02/21 08:34 Review of Systems ROS Other: All systems not noted in ROS Statement are negative. Constitutional: Denies: fever, chills, weakness Respiratory: Reports: dyspnea. Denies: cough, wheezes Cardiovascular: Reports: chest pain, palpitations. Denies: dyspnea on exertion, edema, syncope Gastrointestinal: Reports: nausea, vomiting. Denies: abdominal pain, diarrhea, hematemesis Genitourinary: Denies: dysuria, hematuria Musculoskeletal: Denies: back pain Skin: Denies: rash Neurological: Reports: paresthesias. Denies: headache, weakness, numbness Psychiatric: Reports: anxiety. Denies: depression, suicidal thoughts <Carlyle Trejo - Last Filed: 05/02/21 06:22> ROS Other: All systems not noted in ROS Statement are negative. <Lit Huffman - Last Filed: 05/02/21 13:39> ROS Statement: Those systems with pertinent positive or pertinent negative responses have been documented in the HPI. Past Medical History Past Medical History: GERD/Reflux Additional Past Medical History / Comment(s): GERD, UTI History of Any Multi-Drug Resistant Organisms: None Reported Past Surgical History: Cholecystectomy Additional Past Surgical History / Comment(s): Cholecystectomy w/ ERCP on October 22, 2019. MRCP October 23, 2019. Ureteral stent placed for obstruction. Past Anesthesia/Blood Transfusion Reactions: No Reported Reaction Past Psychological History: Anxiety, Depression Smoking Status: Current every day smoker, Vaper Past Alcohol Use History: None Reported Past Drug Use History: Marijuana - Past Family History Mother Family Medical History: No Reported History <Carlyle Trejo - Last Filed: 05/02/21 06:22> General Exam Limitations: no limitations General appearance: alert, in no apparent distress, anxious Head exam: Present: atraumatic, normocephalic Eye exam: Present: normal appearance. Absent: scleral icterus, conjunctival injection ENT exam: Present: mucous membranes dry Neck exam: Present: normal inspection Respiratory exam: Present: normal lung sounds bilaterally. Absent: respiratory distress, wheezes, rales, rhonchi, stridor Cardiovascular Exam: Present: regular rate, normal rhythm, normal heart sounds. Absent: systolic murmur, diastolic murmur, rubs, gallop GI/Abdominal exam: Present: soft. Absent: distended, tenderness, guarding, rebound, rigid, mass Extremities exam: Present: normal inspection, normal capillary refill. Absent: pedal edema, calf tenderness Back exam: Present: normal inspection Neurological exam: Present: alert Psychiatric exam: Present: anxious. Absent: depressed, agitated, homicidal ideation, suicidal ideation Skin exam: Present: warm, dry, intact, normal color. Absent: rash <Carlyle Trejo - Last Filed: 05/02/21 06:22> Course Vital Signs 05/02/21 03:24 Temperature 98 F Pulse Rate 89 Respiratory 18 Rate Blood Pressure 122/73 O2 Sat by Pulse 99 Oximetry Medical Decision Making - EKG Data -: EKG Interpreted by De EKG shows normal: sinus rhythm (With aberrantly conducted PAC, rate 73 bpm), axis (Normal), intervals (Normal), QRS complexes (Normal), ST-T waves (Normal) Rate: normal Interpretation: nonspecific ST-T wave changes <Carlyle Trejo - Last Filed: 05/02/21 06:22> <Lit Huffman - Last Filed: 05/02/21 13:39> - Medical Decision Making Patient is signed out to me medically cleared. Disposition is pending psychiatric evaluation. Psychiatry evaluated the patient and determined that she needs inpatient criteria. Labs were ordered by psychiatry. Covid swab is negative. Patient was therefore admitted in stable condition to inpatient psychiatry. (Lit Huffman) - Lab Data Lab Results 05/02/21 Range/Units 12:08 Coronavirus (PCR) Not Detected (Not Detectd) Disposition <Carlyle Trejo - Last Filed: 05/02/21 06:22> <Lit Huffman - Last Filed: 05/02/21 13:39> Clinical Impression: Acute anxiety, Encounter for psychiatric assessment Disposition: ADMITTED IP TO THIS HOSP Condition: Stable
[2021-05-02] MEDS ORDERED: METOCLOPRAMIDE 10 MG TAB PO STA (05:23)
[2021-05-02] MEDS ORDERED: ZIPRASIDONE 20 MG VIAL IM STA (05:59)
[2021-05-02] MEDS ORDERED: LORazepam 2 MG/ML INJ IM ONE (11:42)
[2021-05-02] MEDS ORDERED: ACETAMINOPHEN TAB 325 MG TAB PO PRN (13:32)
[2021-05-02] MEDS ORDERED: LORazepam 2 MG/ML INJ IM PRN (13:38)
[2021-05-02] MEDS ORDERED: QUEtiapine 25 MG TAB PO PRN (13:40)
[2021-05-02 14:31] VITALS: BMI 20.2
[2021-05-02] MEDS: MAG HYDROX/AL HYDROX/SIMETH 30 ML CUP PO PRN (22:10)
[2021-05-02] MEDS: LORazepam 1 MG TAB PO PRN (22:11)
[2021-05-03] MEDS: HALOPERIDOL LACTATE 5 MG/ML 1 ML VIAL IM PRN (00:23)
[2021-05-03] MEDS: NICOTINE 14MG/24HR PATCH TRANSDERM SCH (08:54)
[2021-05-03] MEDS ORDERED: PARoxetine 10 MG TAB PO SCH (09:00)
[2021-05-03 09:10] LABS: Basophils % (A) 0 %; Eosinophils # (A) 0.1 k/uL (0-0.7); Eosinophils % (A) 0 %; HCT 42.7 % (34.0-46.0); HGB 14.7 gm/dL (11.4-16.0); Lymphocytes # (A) 3.4 k/uL (1.0-4.8); Lymphocytes % (A) 23 %; MCHC 34.4 g/dL (31.0-37.0); MCV 95.9 fL (80.0-100.0); Mean Platelet Volume 7.4; Monocytes % (A) 7 %; Neutrophils # (A) 10.3 k/uL (1.3-7.7); Neutrophils % (A) 69 %; Platelet Count 284 k/uL (150-450); RBC 4.46 m/uL (3.80-5.40); RDW 12.8 % (11.5-15.5); WBC 14.9 k/uL (3.8-10.6)
[2021-05-03 09:29] LABS: ALT 22 U/L (4-34); AST 53 U/L (14-36); African American GFR (CKD) >90 (>60 ml/min/1.73 sqM); Albumin 4.9 g/dL (3.5-5.0); Alkaline Phosphatase 71 U/L (38-126); Anion Gap 12 mmol/L; Blood Urea Nitrogen 13 mg/dL (7-17); Calcium 10.2 mg/dL (8.4-10.2); Carbon Dioxide 27 mmol/L (22-30); Chloride 99 mmol/L (98-107); Glucose 126 mg/dL (74-99); Non-African American GFR(CKD) >90 (>60 ml/min/1.73 sqM); Potassium 3.4 mmol/L (3.5-5.1); Sodium 138 mmol/L (137-145); Total Bilirubin 1.1 mg/dL (0.2-1.3); Total Protein 8.4 g/dL (6.3-8.2)
[2021-05-03] MEDS: LORazepam 1 MG TAB PO PRN (09:30)
[2021-05-03] MEDS ORDERED: OLANZapine 10 MG VIAL IM STA (10:36)
[2021-05-03] MEDS ORDERED: WATER FOR INJECTION, STERILE 10 ML IV ONE (10:48)
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
[2021-05-03] MEDS: PARoxetine 20 MG TAB PO SCH (14:34)
[2021-05-03 17:14] LABS: Chol/HDL Ratio 2.83 Ratio; LDL Cholesterol,Calculated 107.3 mg/dL (0.0-131.0); VLDL Calculation 13.74 mg/dL (5.00-40.00)
[2021-05-03] MEDS: IMIPRAMINE 10 MG TAB PO SCH (21:50)
--- NOTE | 2021-05-04 00:35 | P.CONS ---
History of Present Illness - Reason for Consult Consult date: 05/03/21 - History of Present Illness The patient is a 25-year-old female who had presented to the emergency room with complaints of anxiety and depression along with GI symptoms. The patient was admitted to the mental health unit where she was seen and evaluated with the mental health unit RN. The patient reports a long-standing history of depression and anxiety which are strongly linked to her GI symptoms of nausea and vomiting. The patient reports an aversion to food brought on during episodes of anxiety. She denied fever, chills, abdominal pain, or diarrhea. The patient's laboratory evaluation from the emergency room was reviewed and was remarkable for obesity on a 14.9, potassium 3.4. Of note, the patient was seen and evaluated on 05/02 @ 2300. Delayed charting as patient's consult wasn't placed in the system. Review of systems: Pertinent positives and negatives as discussed in HPI, a complete review of sys tems was performed and all other systems are negative. Physical examination: General: non toxic, no distress, appears at stated age, normal weight Derm: no unusual rashes/lesions no unusual ecchymoses, warm, dry Head: atraumatic, normocephalic, symmetric Eyes: EOMI, no lid lag, anicteric sclera, pupils equal round reactive to light ENT: Nose and ears atraumatic, no thrush, no pharyngeal erythema Neck: No thyromegaly, no cervical lymphadenopathy, trachea midline, supple Mouth: no lip lesion, mucus membranes moist Cardiovascular: S1S2 reg, no murmur, positive posterior tibial pulse bilateral, no edema, capillary refill less than 2 seconds Lungs: CTA bilateral, no rhonchi, no rales , no accessory muscle use Abdominal: soft, nontender to palpation, no guarding, no appreciable organomegaly, normal bowel sounds Ext: no gross muscle atrophy, muscle strength 5 out of 5 in all 4 extremities g rossly, no contractures, Neuro: CN II-XI grossly intact, light touch intact all 4 extremities, finger to nose within normal limits, Psych: Alert, oriented, appropriate affect Assessment/plan Anxiety and depression -As per psychiatry Occasional nausea and vomiting -Suspected secondary to underlying psychiatric conditions Hypokalemia -Replace and monitor Thank you for allowing us to participate in the care of this patient. We will follow peripherally. Do not hesitate to contact us with questions. Someone can be reached from the [facility] hospitalist group at all hours of the day at [phone]. Past Medical History Past Medical History: GERD/Reflux Additional Past Medical History / Comment(s): GERD, UTI History of Any Multi-Drug Resistant Organisms: None Reported Past Surgical History: Cholecystectomy Additional Past Surgical History / Comment(s): Cholecystectomy w/ ERCP on October 22, 2019. MRCP October 23, 2019. Ureteral stent placed for obstruction. Past Anesthesia/Blood Transfusion Reactions: No Reported Reaction Past Psychological History: Anxiety, Depression Smoking Status: Current every day smoker, Vaper Past Alcohol Use History: None Reported Past Drug Use History: Marijuana - Past Family History Mother Family Medical History: Hypertension Medications and Allergies Home Medications Medication Instructions Recorded Confirmed Type PARoxetine [Paxil] 10 mg PO DAILY 05/02/21 05/02/21 History QUEtiapine [SEROquel] 25 mg PO BID PRN 05/02/21 05/02/21 History Allergies Allergy/AdvReac Type Severity Reaction Status Date / Time No Known Allergies Allergy Verified 05/02/21 08:34 Physical Exam Vitals: Vital Signs Pulse BP 05/03/21 18:03 99 143/89 Results CBC & Chem 7: 05/03/21 08:32 05/03/21 08:32 Labs: Abnormal Lab Results - Last 24 Hours (Table) 05/03/21 05/03/21 Range/Units 08:32 08:32 WBC 14.9 H (3.8-10.6) k/uL Neutrophils # 10.3 H (1.3-7.7) k/uL Potassium 3.4 L (3.5-5.1) mmol/L Glucose 126 H (74-99) mg/dL AST 53 H (14-36) U/L Total Protein 8.4 H (6.3-8.2) g/dL HDL Cholesterol 66.00 H (40.00-60.00) mg/dL
[2021-05-04] MEDS: POTASSIUM CHLORIDE ER 20 MEQ TAB.ER PO SCH ×2 (02:45→05:10)
[2021-05-04] MEDS: LORazepam 1 MG TAB PO PRN ×2 (03:04→13:40)
[2021-05-04] MEDS: PARoxetine 20 MG TAB PO SCH (08:49)
[2021-05-04] MEDS: NICOTINE 14MG/24HR PATCH TRANSDERM SCH (08:49)
[2021-05-04] MEDS: ONDANSETRON ODT 4 MG TAB PO PRN ×2 (12:55→18:50)
--- NOTE | 2021-05-04 14:20 | P.PN ---
Progress Note - Text Progress Note Date: 05/04/21 Interval History: Patient was seen in her room and was directable and agreeable to speak with proposal lead writer in her room. The patient currently reports that she has not noticed any significant change in her mood and her "extreme anxiety"since his admission started. She reports that she feels "very anxious about everything to the point that I cannot function or leave my room." The patient reports that he gets so bad to the point that she feels like her life is not worth living. She is denying any suicidal plan or intention at this time. She reports no homicidal ideation, intention, and/or plan. She denies any auditory or visual hallucinations. She is denying any paranoia or other delusions. The patient does endorse significant history of trauma. She reports that she does feel like she is constantly concerned that the worst is going to happen. The patient also reports that she engages in heavy marijuana use. She does acknowledge that the marijuana use contributes to her issues with nausea but states that she uses the marijuana and order to stimulate her appetite. She states that when her anxiety is very bad, she experiences significant bowel distress.in regards to eating habits, the patient is currently denying any purging behaviors. She does admit that she has previously engaged in self-induced vomiting which she reports was in order to "remove the knots in my stomach but it was never in any intention to try and lose weight." Mental Status Exam: General Appearance: Patient appears to be stated age is alert, directable, and cooperative. Behavior: Patient is calmly seated without any agitated behavior. Slightly elevated psychomotor activity. Speech: Patient's speech is fluent and nonpressured. Mood/Affect: Mood is very anxious, affect is congruent and nervous. Suicidality/Homicidality: Patient denies having any suicidal or homicidal idea tion intent or plan. Perceptions: Patient denies any visual hallucinations and denies any auditory hallucinations Though content/process: There is no evidence of any delusional thought content and thought process is linear and goal-directed. 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 Patient has signed adult voluntary form and medication consent and was placed in patient's chart. -Medications: Continue imipramine 10 mg by mouth at bedtime for insomnia/depression We will start Remeron 15 mg by mouth at bedtime for management of depression/insomnia/appetite stimulation -When necessary Ativan and Haldol for agitation/aggression. -SW on board for discharge planning. Encouraged the patient to participate in milieu.
[2021-05-04] MEDS: IMIPRAMINE 10 MG TAB PO SCH (20:59)
[2021-05-04] MEDS ORDERED: MIRTAZAPINE 15 MG TAB PO SCH (21:00)
[2021-05-04] MEDS: HALOPERIDOL LACTATE 5 MG/ML 1 ML VIAL IM PRN (21:42)
[2021-05-05 06:54] VITALS: RESP 14
[2021-05-05] MEDS: LORazepam 1 MG TAB PO PRN (08:48)
--- NOTE | 2021-05-05 12:48 | P.PN ---
Progress Note - Text Progress Note Date: 05/05/21 Interval History: Patient was seen in her room and was directable and agreeable to speak with camryn erickson in the office. Currently, the patient is reporting she is feeling better today. She reports that her nausea has improved. She states that her sleep was well. She is not reporting any suicidal or homicidal ideation, intention, and/or plan. She is not reporting any auditory or visualizations. She denies any paranoia or other delusions. The patient has been adherent with her medication is not endorsing any significant side effects at this time. She reports she finds the Remeron to be beneficial. The patient continues to endorse elevated anxiety. She states that it has been better and notices that she has been able to attend groups today. She endorses more future orientation. Mental Status Exam: General Appearance: Patient appears to be stated age is alert, directable, and cooperative. Behavior: Patient is calmly seated without any agitated behavior. Psychomotor activity appears normal today. Speech: Patient's speech is fluent and nonpressured. Mood/Affect: Mood is mildly improving. Affect is euthymic with appropriate range. Suicidality/Homicidality: Patient denies having any suicidal or homicidal ideation intent or plan. Perceptions: Patient denies any visual hallucinations and denies any auditory hallucinations Though content/process: There is no evidence of any delusional thought content and thought process is linear and goal-directed. 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 Patient has signed adult voluntary form and me dication consent and was placed in patient's chart. -Medications: Discontinue imipramine to decrease risk of serotonin syndrome. We increase Remeron to 30 mg by mouth at bedtime for management of dep ression/insomnia/appetite stimulation -When necessary Ativan and Haldol for agitation/aggression. -SW on board for discharge planning. Encouraged the patient to participate in milieu.
[2021-05-05] MEDS: hydrOXYzine pamoate 25 MG CAP PO PRN ×2 (13:23→18:29)
[2021-05-05] MEDS: ONDANSETRON ODT 4 MG TAB PO PRN (14:46)
[2021-05-05] MEDS ORDERED: MIRTAZAPINE 15 MG TAB PO SCH (21:00)
[2021-05-06] MEDS: hydrOXYzine pamoate 25 MG CAP PO PRN (06:01)
[2021-05-06 06:42] VITALS: BP 131/99; PULSE 118; TEMP 97.8
[2021-05-06] MEDS: ONDANSETRON ODT 4 MG TAB PO PRN (08:08)
[2021-05-06] MEDS: MAG HYDROX/AL HYDROX/SIMETH 30 ML CUP PO PRN (08:13)
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
== END 2021-05-06 11:33 | disposition home or self-care (01) | DRG 885 ==
LOC: EC 03:20 → 3MHU 13:28
PROVIDERS: ADMIT Psychiatry & Neurology Psychiatry; ATTEND Psychiatry & Neurology Psychiatry
DX: F33.3 Major depressive disorder, recurrent, severe with psychotic symptoms (principal); R45.851 Suicidal ideations; F50.9 Eating disorder, unspecified; F12.180 Cannabis abuse with cannabis-induced anxiety disorder; F60.89 Other specific personality disorders; Z20.822 Contact with and (suspected) exposure to COVID-19; F43.10 Post-traumatic stress disorder, unspecified; F41.0 Panic disorder [episodic paroxysmal anxiety]; F42.9 Obsessive-compulsive disorder, unspecified; K30 Functional dyspepsia; F17.290 Nicotine dependence, other tobacco product, uncomplicated; Z56.0 Unemployment, unspecified; K21.9 Gastro-esophageal reflux disease without esophagitis; E87.6 Hypokalemia; G47.00 Insomnia, unspecified; Z79.899 Other long term (current) drug therapy; Z87.440 Personal history of urinary (tract) infections; Z90.49 Acquired absence of other specified parts of digestive tract; Z87.19 Personal history of other diseases of the digestive system; Z62.810 Personal history of physical and sexual abuse in childhood; Z98.890 Other specified postprocedural states; Z71.41 Alcohol abuse counseling and surveillance of alcoholic; Z71.51 Drug abuse counseling and surveillance of drug abuser; Z82.49 Family history of ischemic heart disease and other diseases of the circulatory system
CPT/HCPCS: 80053; 80061; 82075; 83036; 84443; 85025; 87635; 93005; 96372; 99285

== ENCOUNTER 2021-06-02 12:08 | Inpatient (IN) | payer MEDICAID, OTHER ==
[2021-06-02 12:23] VITALS: RESP 18
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
[2021-06-02 15:00] LABS: Amphetamine Screen,Urine Not Detected (NotDetected); Barbiturate Screen,Urine Not Detected (NotDetected); Benzodiazepines Screen,Urine Not Detected (NotDetected); Cocaine Screen,Urine Not Detected (NotDetected); Methadone Screen, Urine Not Detected (NotDetected); Opiate Screen,Urine Not Detected (NotDetected); Oxycodone Screen, Urine Not Detected (NotDetected); Phencyclidine Screen,Urine Not Detected (NotDetected); Tricyclic Antidepressant,Urine Not Detected (NotDetected); Urn Cannabinoid Scrn Detected (NotDetected)
[2021-06-02] MEDS ORDERED: ACETAMINOPHEN TAB 325 MG TAB PO PRN (22:38)
[2021-06-02] MEDS ORDERED: LORazepam 1 MG TAB PO PRN (22:38)
[2021-06-02] MEDS ORDERED: MAG HYDROX/AL HYDROX/SIMETH 30 ML CUP PO PRN (22:38)
[2021-06-02] MEDS ORDERED: LORazepam 2 MG/ML INJ IM PRN (22:39)
[2021-06-02] MEDS ORDERED: HALOPERIDOL LACTATE 5 MG/ML 1 ML VIAL IM PRN (22:39)
[2021-06-02] MEDS ORDERED: haloperidoL 5 MG TAB PO PRN (22:39)
[2021-06-02] MEDS ORDERED: QUEtiapine 25 MG TAB PO PRN (23:00)
[2021-06-02] MEDS ORDERED: MAGNESIUM HYDROXIDE 2,400 MG/10 ML CUP PO PRN (23:00)
[2021-06-02 23:53] VITALS: BP 132/76; PULSE 92; TEMP 97.6
--- NOTE | 2021-06-03 04:21 | P.PN ---
Progress Note - Text Progress Note Date: 06/03/21 Patient was sedated and is currently not appropriate for an evaluation.
[2021-06-03 08:41] LABS: ALT 16 U/L (4-34); AST 33 U/L (14-36); African American GFR (CKD) >90 (>60 ml/min/1.73 sqM); Albumin 4.7 g/dL (3.5-5.0); Alkaline Phosphatase 50 U/L (38-126); Anion Gap 9 mmol/L; Blood Urea Nitrogen 9 mg/dL (7-17); Calcium 10.3 mg/dL (8.4-10.2); Carbon Dioxide 25 mmol/L (22-30); Chloride 104 mmol/L (98-107); Glucose 83 mg/dL (74-99); Non-African American GFR(CKD) >90 (>60 ml/min/1.73 sqM); Potassium 4.4 mmol/L (3.5-5.1); Sodium 138 mmol/L (137-145); Total Bilirubin 1.2 mg/dL (0.2-1.3)
[2021-06-03] MEDS ORDERED: GLYCOPYRROLATE 1 MG TAB PO SCH (09:00)
[2021-06-03] MEDS ORDERED: PANTOPRAZOLE 40 MG TABLET PO SCH (09:00)
[2021-06-03] MEDS ORDERED: FAMOTIDINE 20 MG TAB PO SCH (09:00)
[2021-06-03] MEDS ORDERED: SERTRALINE 50 MG TAB PO SCH (09:00)
[2021-06-03 09:03] LABS: Basophils # (A) 0.1 k/uL (0-0.2); Basophils % (A) 1 %; Eosinophils # (A) 0.2 k/uL (0-0.7); Eosinophils % (A) 2 %; HCT 45.8 % (34.0-46.0); Lymphocytes % (A) 32 %; MCHC 32.7 g/dL (31.0-37.0); MCV 100.7 fL (80.0-100.0); Mean Platelet Volume 7.9; Monocytes # (A) 0.6 k/uL (0-1.0); Monocytes % (A) 6 %; Neutrophils # (A) 5.4 k/uL (1.3-7.7); Neutrophils % (A) 57 %; Platelet Count 262 k/uL (150-450); RBC 4.55 m/uL (3.80-5.40); RDW 12.5 % (11.5-15.5); WBC 9.4 k/uL (3.8-10.6)
--- NOTE | 2021-06-03 14:02 | P.HP ---
Psychiatric H&P - . H&P Date: 06/03/21 History & Physical: Allergies Allergy/AdvReac Type Severity Reaction Status Date / Time No Known Allergies Allergy Verified 06/03/21 12:02 Vital Signs Temp 97.6 F 06/02/21 23:51 Pulse 92 06/02/21 23:51 Resp 18 06/02/21 12:19 BP 132/76 06/02/21 23:51 Pulse Ox 99 06/02/21 12:19 Intake & Output 06/02/21 06/03/21 06/03/21 18:59 06:59 18:59 Weight 45.813 kg 47 kg 47 kg Laboratory Last Values WBC 9.4 k/uL (3.8-10.6) 06/03/21 07:34 RBC 4.55 m/uL (3.80-5.40) 06/03/21 07:34 Hgb 15.0 gm/dL (11.4-16.0) 06/03/21 07:34 Hct 45.8 % (34.0-46.0) 06/03/21 07:34 MCV 100.7 fL (80.0-100.0) H 06/03/21 07:34 MCH 33.0 pg (25.0-35.0) 06/03/21 07:34 MCHC 32.7 g/dL (31.0-37.0) 06/03/21 07:34 RDW 12.5 % (11.5-15.5) 06/03/21 07:34 Plt Count 262 k/uL (150-450) 06/03/21 07:34 MPV 7.9 06/03/21 07:34 Neutrophils % 57 % 06/03/21 07:34 Lymphocytes % 32 % 06/03/21 07:34 Monocytes % 6 % 06/03/21 07:34 Eosinophils % 2 % 06/03/21 07:34 Basophils % 1 % 06/03/21 07:34 Neutrophils # 5.4 k/uL (1.3-7.7) 06/03/21 07:34 Lymphocytes # 3.0 k/uL (1.0-4.8) 06/03/21 07:34 Monocytes # 0.6 k/uL (0-1.0) 06/03/21 07:34 Eosinophils # 0.2 k/uL (0-0.7) 06/03/21 07:34 Basophils # 0.1 k/uL (0-0.2) 06/03/21 07:34 Sodium 138 mmol/L (137-145) 06/03/21 07:34 Potassium 4.4 mmol/L (3.5-5.1) 06/03/21 07:34 Chloride 104 mmol/L (98-107) 06/03/21 07:34 Carbon Dioxide 25 mmol/L (22-30) 06/03/21 07:34 Anion Gap 9 mmol/L 06/03/21 07:34 BUN 9 mg/dL (7-17) 06/03/21 07:34 Creatinine 0.70 mg/dL (0.52-1.04) 06/03/21 07:34 Est GFR (CKD-EPI)AfAm >90 (>60 ml/min/1.73 sqM) 06/03/21 07:34 Est GFR (CKD-EPI)NonAf >90 (>60 ml/min/1.73 sqM) 06/03/21 07:34 Glucose 83 mg/dL (74-99) 06/03/21 07:34 Calcium 10.3 mg/dL (8.4-10.2) H 06/03/21 07:34 Total Bilirubin 1.2 mg/dL (0.2-1.3) 06/03/21 07:34 AST 33 U/L (14-36) 06/03/21 07:34 ALT 16 U/L (4-34) 06/03/21 07:34 Alkaline Phosphatase 50 U/L (38-126) 06/03/21 07:34 Total Protein 8.0 g/dL (6.3-8.2) 06/03/21 07:34 Albumin 4.7 g/dL (3.5-5.0) 06/03/21 07:34 TSH 2.100 mIU/L (0.465-4.680) 06/03/21 07:34 Urine HCG, Qual Not Detected (Not Detectd) 06/02/21 14:20 Urine Opiates Screen Not Detected (NotDetected) 06/02/21 14:20 Ur Oxycodone Screen Not Detected (NotDetected) 06/02/21 14:20 Urine Methadone Screen Not Detected (NotDetected) 06/02/21 14:20 Ur Propoxyphene Screen Not Detected (NotDetected) 06/02/21 14:20 Ur Barbiturates Screen Not Detected (NotDetected) 06/02/21 14:20 U Tricyclic Antidepress Not Detected (NotDetected) 06/02/21 14:20 Ur Phencyclidine Scrn Not Detected (NotDetected) 06/02/21 14:20 Ur Amphetamines Screen Not Detected (NotDetected) 06/02/21 14:20 U Methamphetamines Scrn Not Detected (NotDetected) 06/02/21 14:20 U Benzodiazepines Scrn Not Detected (NotDetected) 06/02/21 14:20 Urine Cocaine Screen Not Detected (NotDetected) 06/02/21 14:20 U Marijuana (THC) Screen Detected (NotDetected) H 06/02/21 14:20 Coronavirus (PCR) Not Detected (Not Detectd) 06/02/21 17:45 06/03/21 14:02 IDENTIFYING DATA: Patient is a single, unemployed, 25-year-old female with a significant history of borderline personality disorder who presented to emergency department after making suicidal statements towards her therapist. HPI: Patient presented to the hospital on 06/02/2021, brought into the emergency department by police after the patient expressed suicidal ideation with numerous plans to her therapist. The patient reported to the EPS nurse that she has not been on her medications for the past few days after she verbalized that she was going to overdose on them. She states that her boyfriend took away all the medications and got rid of them and therefore she has been having a decline in her mood and has had uncontrolled anxiety. She reports that this culminated in her expressing suicidal ideation with numerous plans to her therapist. Upon evaluation on the psychiatric unit, the patient does admit to chronic suicidal ideation however denies any intention or plan at this time. The patient does report that it is a problem of hers to jump straight to thoughts of suicide without properly utilizing coping skills. The patient does express that she has been having relationship stressors with her boyfriend in regards to another man that has been present in her life. The patient continues to endorse overall generalized anxiety which leads to somatic symptoms of nausea and occasional vomiting. However, the patient is currently denying any significant symptoms of depression although reports sub jective feelings of being unhappy. She denies any change in her sleep, anhedonia, hopelessness or helplessness. She does express some future orientation and is looking forward to spending Jolene with her family and attending a holiday constitution party today. PAST PSYCHIATRIC HISTORY: Patient has previous diagnoses of major depressive disorder, posttraumatic stress disorder, panic disorder, and cannabis use disorder. She also has an unspecified eating disorder as well as significant cluster B personality traits. The patient. The patient follows with [facility] and is currently on a home regimen of Paxil, Ativan, and Seroquel. He was most recently discharged from the psychiatric unit one month prior to this admission. PMH: Past Medical History: GERD/Reflux Additional Past Medical History / Comment(s): GERD, UTI History of Any Multi-Drug Resistant Organisms: None Reported Past Surgical History: Cholecystectomy Additional Past Surgical History / Comment(s): Cholecystectomy w/ ERCP on October 22, 2019. MRCP October 23, 2019. Ureteral stent placed for obstruction. Past Anesthesia/Blood Transfusion Reactions: No Reported Reaction Past Psychological History: Anxiety, Depression, PTSD Smoking Status: Current every day smoker, Vaper Past Alcohol Use History: Occasional Past Drug Use History: Marijuana ALLERGIES: NO KNOWN DRUG ALLERGIES. CHEMICAL DEPENDENCY HISTORY: Patient uses cannabis frequently. She also engages in occasional alcohol use. She currently smokes cigarettes daily. FAMILY PSYCHIATRIC/SUBSTANCE USE HISTORY: Denies SOCIAL HISTORY: Patient is currently single, never , and lives with her mother. She is unemployed. Her hobbies and interests include crystals. MENTAL STATUS EXAM: General Appearance: Patient appears to be stated age is alert, directable, and attempts to cooperate. Patient appears to have fair hygiene and grooming. Behavior: Patient is seated without any agitated behavior. Motor activity appears normal. Speech: Patient's speech is fluent and nonpressured. Mood/Affect: Patient reports their mood is anxious, affect is non-congruent, with appropriate range and appears to be euthymic. Patient laughs and smiles appropriately. Suicidality/Homicidality: Patient denies having any homicidal ideation intent or plan. Denies any current suicidal ideation, intention, and/or plan. She does report it is a chronic issue for her that when presented with any significant stress that she thinks about suicide however acknowledges that she needs to exercise appropriate coping skills. Perceptions: Patient denies any visual hallucinations and denies any auditory hallucinations Though content/process: There is no evidence of any delusional thought content and thought process is linear and goal-directed. Memory and concentration: AOX3, grossly intact for the purposes of this session. Can spell "WORLD" backwards Judgment and insight: Fair STRENGTHS/WEAKNESSES: Strengths that the patient is in relatively good health and has supportive family. Weakness is that the patient has poor ego integrity INTELLECT: average IMPRESSIONS: Major depressive disorder, recurrent, without psychotic features Borderline personality disorder Unspecified eating disorder Cannabis use disorder Nicotine dependence Alcohol use disorder, binge pattern PLAN: -Patient is admitted under voluntary status to MHU for stabilization of psychiatric symptoms and safety. Patient signed adult voluntary form and medication consent and is placed in patient's chart. As a patient does not display any significant criteria for inpatient psychiatric admission and has more protective factors of family support, future orientation, and no organic depression, the patient is deemed stable enough for discharge. The patient is recommended to follow-up in the outpatient setting with [facility] and with a focus on psychotherapy to develop further coping skills and self-esteem due to her borderline personality disorder. -Medications : Will start patient on her home medications Paxil, Seroquel, and Ativan. -Patient to subsequently discharged and she does not meet criteria for inpatient psychiatric admission. 06/03/21 14:02
--- NOTE | 2021-06-03 14:07 | P.DS ---
Providers Date of admission: 06/02/21 21:30 Expected date of discharge: 06/03/21 Attending physician: Tyler Eisenberg MD Consults: 06/02/21 22:38 Consult Physician Routine Consulting Provider: Jamel Plascencia Consult Reason/Comments: H&P and medical Do you want consulting provider notified?: Yes Primary care physician: Andrey Humphries - Discharge Diagnosis(es) (1) Major depressive disorder, recurrent episode with anxious distress Current Visit: Yes Status: Acute Priority: High (2) Cluster B personality disorder Current Visit: Yes Status: Chronic Priority: Medium (3) Eating disorder, unspecified Current Visit: Yes Status: Chronic Priority: Medium (4) Cannabis abuse with cannabis-induced anxiety disorder Current Visit: Yes Status: Chronic Priority: Medium Hospital Course: Admission HPI: Patient is a single, unemployed, 25-year-old female with a significant history of borderline personality disorder who presented to emergency department after making suicidal statements towards her therapist. Patient presented to the hospital on 06/02/2021, brought into the emergency department by police after the patient expressed suicidal ideation with numerous plans to her therapist. The patient reported to the EPS nurse that she has not been on her medications for the past few days after she verbalized that she was going to overdose on them. She states that her boyfriend took away all the medications and got rid of them and therefore she has been having a decline in her mood and has had uncontrolled anxiety. She reports that this culminated in her expressing suicidal ideation with numerous plans to her therapist. Upon evaluation on the psychiatric unit, the patient does admit to chronic suicidal ideation however denies any intention or plan at this time. The patient does report that it is a problem of hers to jump straight to thoughts of suicide without properly utilizing coping skills. The patient does express that she has been having relationship stressors with her boyfriend in regards to another man that has been present in her life. The patient continues to endorse overall generalized anxiety which leads to somatic symptoms of nausea and occasional vomiting. However, the patient is currently denying any significant symptoms of depression although reports subjective feelings of being unhappy. She denies any change in her sleep, anhedonia, hopelessness or helplessness. She does express some future orientation and is looking forward to spending Jolene with her family and attending a holiday constitution party today. Hospital course: Upon admission to the unit patient was initially presenting as bright and future-oriented. She did acknowledge a lack of coping skills and appropriate communication skills. Significant time (>30 minutes) were spent discussing Borderline Personality Disorder and what it entails. We discussed at length coping and communication. The patient appeared to be very future oriented and was looking forward to attending this Jolene gathering with her family and spending time with her mother. As the patient had significant protective factors of future orientation, open with outpatient services, and significant family support, the patient was subsequently discharged despite her chronic and unmodifiable risk factor of prior suicide attempts. Mental status exam: General Appearance: Patient appears to be stated age is alert, directable, and attempts to cooperate. Patient appears to have fair hygiene and grooming. Behavior: Patient is seated without any agitated behavior. Motor activity appears normal. Speech: Patient's speech is fluent and nonpressured. Mood/Affect: Patient reports their mood is anxious, affect is non-congruent, with appropriate range and appears to be euthymic. Patient laughs and smiles appropriately. Suicidality/Homicidality: Patient denies having any homicidal ideation intent or plan. Denies any current suicidal ideation, intention, and/or plan. She does report it is a chronic issue for her that when presented with any significant stress that she thinks about suicide however acknowledges that she needs to exercise appropriate coping skills. Perceptions: Patient denies any visual hallucinations and denies any auditory hallucinations Though content/process: There is no evidence of any delusional thought content and thought process is linear and goal-directed. Memory and concentration: AOX3, grossly intact for the purposes of this session. Can spell "WORLD" backwards Judgment and insight: Fair Vital Signs Temp 97.6 F 06/02/21 23:51 Pulse 92 06/02/21 23:51 Resp 18 06/02/21 12:19 BP 132/76 06/02/21 23:51 Pulse Ox 99 06/02/21 12:19 Intake & Output 06/02/21 06/03/21 06/03/21 18:59 06:59 18:59 Weight 45.813 kg 47 kg 47 kg Impression: Major depressive disorder, recurrent, without psychotic features Borderline personality disorder Unspecified eating disorder Cannabis use disorder Nicotine dependence Alcohol use disorder, binge pattern Plan: -Continue with discharge today as patient has improved and stabilized psychiatrically and is not currently an imminent threat to herself and/or others. Patient will remain at chronically elevated risk for harm to self and/or others due to her poor ego integrity, coping skills, and history of binge substance use. Furthermore, the patient has an unmodifiable risk factor of previous suicide attempts. -Continue medications: Patient will be discharged on her regimen of Paxil 20 mg by mouth daily, Ativan 0.25 mg when necessary for 3 days, and Seroquel 25 mg at bedtime. -Patient was counseled on the need for medication compliance and appropriate follow-up at mental health and also primary care for medical issues. Patient verbalized understanding and agreed. -Social work to arrange for and conduct family meeting to ensure safety upon discharge and answer any questions/concerns. Social work also to arrange for patients follow up appointments with [facility] for psychiatric care along with follow up with primary care provider. -Patient counseled on abstaining from recreational drugs and marijuana and alcohol. Was informed/educated on the adverse effects on their physical and mental health. Patient verbally agreed and understood. -Patient was instructed to return to the hospital or seek immediate medical care if their psychiatric or medical symptoms do worsen or reoccur. -Psychoeducation and supportive therapy provided to patient. Risks and benefits of pharmacological treatment versus the risks and benefits of nontreatment weight and discussed. Informed consent discussion held. Common side effects of psychotropics discussed such as, but not limited to headache, GI disturbance, sexual dysfunction, movement disorders, sedation, and orthostatic hypotension. Life threatening and blackbox warnings of prescribed medications also discussed. Potential risks of operating a vehicle or heavy machinery discussed with patient at length. Advised on importance of compliance and a reliable and responsible manner. Patient advised to review FDA consumer labeling of all medications prior to taking. Patient verbalized understanding of potential risks, and agrees with current treatment plan. Patient advised to medically contact physician/emergency personnel if any acute changes in condition occur. Laboratory Results WBC 9.4 k/uL (3.8-10.6) 06/03/21 07:34 RBC 4.55 m/uL (3.80-5.40) 06/03/21 07:34 Hgb 15.0 gm/dL (11.4-16.0) 06/03/21 07:34 Hct 45.8 % (34.0-46.0) 06/03/21 07:34 MCV 100.7 fL (80.0-100.0) H 06/03/21 07:34 MCH 33.0 pg (25.0-35.0) 06/03/21 07:34 MCHC 32.7 g/dL (31.0-37.0) 06/03/21 07:34 RDW 12.5 % (11.5-15.5) 06/03/21 07:34 Plt Count 262 k/uL (150-450) 06/03/21 07:34 MPV 7.9 06/03/21 07:34 Neutrophils % 57 % 06/03/21 07:34 Lymphocytes % 32 % 06/03/21 07:34 Monocytes % 6 % 06/03/21 07:34 Eosinophils % 2 % 06/03/21 07:34 Basophils % 1 % 06/03/21 07:34 Neutrophils # 5.4 k/uL (1.3-7.7) 06/03/21 07:34 Lymphocytes # 3.0 k/uL (1.0-4.8) 06/03/21 07:34 Monocytes # 0.6 k/uL (0-1.0) 06/03/21 07:34 Eosinophils # 0.2 k/uL (0-0.7) 06/03/21 07:34 Basophils # 0.1 k/uL (0-0.2) 06/03/21 07:34 Sodium 138 mmol/L (137-145) 06/03/21 07:34 Potassium 4.4 mmol/L (3.5-5.1) 06/03/21 07:34 Chloride 104 mmol/L (98-107) 06/03/21 07:34 Carbon Dioxide 25 mmol/L (22-30) 06/03/21 07:34 Anion Gap 9 mmol/L 06/03/21 07:34 BUN 9 mg/dL (7-17) 06/03/21 07:34 Creatinine 0.70 mg/dL (0.52-1.04) 06/03/21 07:34 Est GFR (CKD-EPI)AfAm >90 (>60 ml/min/1.73 sqM) 06/03/21 07:34 Est GFR (CKD-EPI)NonAf >90 (>60 ml/min/1.73 sqM) 06/03/21 07:34 Glucose 83 mg/dL (74-99) 06/03/21 07:34 Calcium 10.3 mg/dL (8.4-10.2) H 06/03/21 07:34 Total Bilirubin 1.2 mg/dL (0.2-1.3) 06/03/21 07:34 AST 33 U/L (14-36) 06/03/21 07:34 ALT 16 U/L (4-34) 06/03/21 07:34 Alkaline Phosphatase 50 U/L (38-126) 06/03/21 07:34 Total Protein 8.0 g/dL (6.3-8.2) 06/03/21 07:34 Albumin 4.7 g/dL (3.5-5.0) 06/03/21 07:34 TSH 2.100 mIU/L (0.465-4.680) 06/03/21 07:34 Urine HCG, Qual Not Detected (Not Detectd) 06/02/21 14:20 Urine Opiates Screen Not Detected (NotDetected) 06/02/21 14:20 Ur Oxycodone Screen Not Detected (NotDetected) 06/02/21 14:20 Urine Methadone Screen Not Detected (NotDetected) 06/02/21 14:20 Ur Propoxyphene Screen Not Detected (NotDetected) 06/02/21 14:20 Ur Barbiturates Screen Not Detected (NotDetected) 06/02/21 14:20 U Tricyclic Antidepress Not Detected (NotDetected) 06/02/21 14:20 Ur Phencyclidine Scrn Not Detected (NotDetected) 06/02/21 14:20 Ur Amphetamines Screen Not Detected (NotDetected) 06/02/21 14:20 U Methamphetamines Scrn Not Detected (NotDetected) 06/02/21 14:20 U Benzodiazepines Scrn Not Detected (NotDetected) 06/02/21 14:20 Urine Cocaine Screen Not Detected (NotDetected) 06/02/21 14:20 U Marijuana (THC) Screen Detected (NotDetected) H 06/02/21 14:20 Coronavirus (PCR) Not Detected (Not Detectd) 06/02/21 17:45 Allergies Allergy/AdvReac Type Severity Reaction Status Date / Time No Known Allergies Allergy Verified 06/03/21 12:02 Patient Condition at Discharge: Stable Plan - Discharge Summary Discharge Rx Participant: No New Discharge Prescriptions: New Famotidine [Pepcid] 40 mg PO DAILY 30 Days tab LORazepam [Ativan] 0.5 mg PO DAILY PRN #3 tab PRN Reason: Anxiety Continue Glycopyrrolate 1 mg PO DAILY 30 Days tab Omeprazole 40 mg PO BID 30 Days cap PARoxetine [Paxil] 20 mg PO DAILY 30 Days #0 Discontinued Famotidine [Pepcid] 40 mg PO DAILY QUEtiapine [SEROquel] 25 mg PO HS PRN PRN Reason: Insomnia LORazepam [Ativan] 0.25 mg PO DAILY PRN PRN Reason: Severe Anxiety Discharge Medication List Famotidine [Pepcid] 40 mg PO DAILY 30 Days tab 06/03/21 [Rx] Glycopyrrolate 1 mg PO DAILY 30 Days tab 06/03/21 [Rx] LORazepam [Ativan] 0.5 mg PO DAILY PRN #3 tab 06/03/21 [Rx] Omeprazole 40 mg PO BID 30 Days cap 06/03/21 [Rx] PARoxetine [Paxil] 20 mg PO DAILY 30 Days #0 06/03/21 [Rx] Follow up Appointment(s)/Referral(s): [facility] [Outside] - 06/15/21 11:00 am (06/15/21 @ 11:00-11:30 with Asiya Rowe 06/18/21 @ 09:00-09:50 with Cathie ) Andrey Humphries MD [Primary Care Provider] - 1-2 days & Marianela Neil [REFERRING] - 1 Week Patient Instructions/Handouts: How to Stop Smoking (DC), Depression (DC) Activity/Diet/Wound Care/Special Instructions: Activity and diet as tolerated. Avoid the use of street drugs and alcohol. Take all medications as prescribed. When you are in need of refills on your medications please contact your medical provider and/or outpatient psychiatrist to have this done. Please go to scheduled outpatient appointment for aftercare treatment. If symptoms return or become worse, call the crisis line at and/or go to the nearest emergency room for evaluation Discharge Disposition: HOME SELF-CARE
[2021-06-03 17:17] LABS: Chol/HDL Ratio 3.06 Ratio; LDL Cholesterol,Calculated 121.5 mg/dL (0.0-131.0); VLDL Calculation 15.18 mg/dL (5.00-40.00)
== END 2021-06-03 14:22 | disposition home or self-care (01) | DRG 885 ==
LOC: EC 12:08 → 3MHU 21:30
PROVIDERS: ADMIT Psychiatry & Neurology Psychiatry; ATTEND Psychiatry & Neurology Psychiatry
DX: F33.9 Major depressive disorder, recurrent, unspecified (principal); R45.851 Suicidal ideations; F10.10 Alcohol abuse, uncomplicated; F12.180 Cannabis abuse with cannabis-induced anxiety disorder; F17.210 Nicotine dependence, cigarettes, uncomplicated; Z20.822 Contact with and (suspected) exposure to COVID-19; F41.0 Panic disorder [episodic paroxysmal anxiety]; K21.9 Gastro-esophageal reflux disease without esophagitis; F41.1 Generalized anxiety disorder; F43.10 Post-traumatic stress disorder, unspecified; F50.9 Eating disorder, unspecified; F60.3 Borderline personality disorder; F60.89 Other specific personality disorders; Z79.899 Other long term (current) drug therapy; Z86.59 Personal history of other mental and behavioral disorders; Z91.51 Personal history of suicidal behavior; Z90.49 Acquired absence of other specified parts of digestive tract; Z87.440 Personal history of urinary (tract) infections; Z71.51 Drug abuse counseling and surveillance of drug abuser; Z71.41 Alcohol abuse counseling and surveillance of alcoholic; Z71.6 Tobacco abuse counseling
CPT/HCPCS: 80053; 80061; 80306; 81025; 82075; 83036; 84443; 85025; 87635; 99285

== ENCOUNTER 2021-07-08 07:53 | Emergency (ER) | payer OTHER ==
[2021-07-08 08:04] VITALS: BP 143/99; PULSE 102; RESP 18; TEMP 97.4
[2021-07-08] MEDS ORDERED: ONDANSETRON 4 MG/2 ML VIAL IVP STA (08:13)
[2021-07-08] MEDS ORDERED: SODIUM CHLORIDE 0.9% 1,000 ML IV STA (08:13)
[2021-07-08] MEDS ORDERED: FAMOTIDINE 20 MG/2 ML VIAL IV STA (08:14)
[2021-07-08] MEDS ORDERED: LORazepam 2 MG/ML INJ IV STA (08:14)
--- NOTE | 2021-07-08 08:18 | ED ---
General Adult HPI - General Chief complaint: Nausea/Vomiting/Diarrhea Stated complaint: N&V Time Seen by Provider: 07/08/21 07:58 Source: patient, EMS Mode of arrival: EMS Limitations: no limitations - History of Present Illness Initial comments: 25-year-old female with a past medical history of cholecystectomy, kidney stones presents to the emergency room for chief complaint of anxiety. Patient states that she triggered her anxiety yesterday evening. States her friend she hadn't seen in 2 years came over. States she is nauseous and vomiting and feels like her heart is racing. Patient states this has happened to her in the past from anxiety. Patient states she needs some medications for it.Patient has no other complaints at this time including shortness of breath, chest pain, abdominal pain, headache, or visual changes. - Related Data Home Medications Medication Instructions Recorded Confirmed Cholecalciferol [Vitamin D3 (25 50 mcg PO HS 07/08/21 07/08/21 Mcg = 1000 Iu)] Famotidine [Pepcid] 40 mg PO HS 07/08/21 07/08/21 Glycopyrrolate 1 mg PO HS 07/08/21 07/08/21 PARoxetine [Paxil] 20 mg PO HS 07/08/21 07/08/21 Previous Rx's Medication Instructions Recorded LORazepam [Ativan] 0.5 mg PO DAILY PRN #3 tab 06/03/21 Omeprazole 40 mg PO BID 30 Days cap 06/03/21 Allergies Allergy/AdvReac Type Severity Reaction Status Date / Time No Known Allergies Allergy Verified 07/08/21 09:09 Review of Systems ROS Statement: Those systems with pertinent positive or pertinent negative responses have been documented in the HPI. ROS Other: All systems not noted in ROS Statement are negative. Past Medical History Past Medical History: GERD/Reflux Additional Past Medical History / Comment(s): GERD, UTI History of Any Multi-Drug Resistant Organisms: None Reported Past Surgical History: Cholecystectomy Additional Past Surgical History / Comment(s): Cholecystectomy w/ ERCP on October 22, 2019. MRCP October 23, 2019. Ureteral stent placed for obstruction. Past Anesthesia/Blood Transfusion Reactions: No Reported Reaction Past Psychological History: Anxiety, Depression, PTSD Smoking Status: Vaper Past Alcohol Use History: Occasional Past Drug Use History: Marijuana - Past Family History Mother Family Medical History: Hypertension General Exam Limitations: no limitations General appearance: alert, anxious Head exam: Present: atraumatic Eye exam: Present: normal appearance, PERRL, EOMI. Absent: scleral icterus, conjunctival injection ENT exam: Present: normal exam, mucous membranes moist Neck exam: Present: normal inspection, full ROM. Absent: tenderness Respiratory exam: Present: normal lung sounds bilaterally. Absent: respiratory distress, wheezes Cardiovascular Exam: Present: regular rate, normal rhythm, normal heart sounds GI/Abdominal exam: Present: soft, normal bowel sounds. Absent: distended, tenderness Neurological exam: Present: alert Course Vital Signs 07/08/21 07:58 Temperature 97.4 F L Pulse Rate 102 H Respiratory 18 Rate Blood Pressure 143/99 O2 Sat by Pulse 100 Oximetry Medical Decision Making - Medical Decision Making Vitals are stable. Patient presents very anxious and vomiting. CBC does reveal leukocytosis of 24. This could be secondary to vomiting. CMP does reveal low CO2 however patient presents hyperventilating which is likely the cause. Urinalysis does not show any evidence of infection. She does have 2+ ketones. Patient was given a liter of fluids as well as a [address] Chest x-ray shows no acute cardiopulmonary process. Patient reevaluated, feeling much better. I did do a repeat abdominal exam and she continues to have no abdominal tenderness whatsoever. At this point patient is stable for discharge home however I strongly recommend she have her labs rechecked in the next 1-2 days. If she develops fevers or any other worsening symptoms she will return to the emergency room. I discussed this case with attending Dr. Alvarado who agrees with this assessment and treatment plan. - Lab Data Result diagrams: 07/08/21 08:21 07/08/21 09:24 Lab Results 07/08/21 07/08/21 07/08/21 Range/Units 08:21 08:21 08:21 WBC 24.0 H (3.8-10.6) k/uL RBC 4.41 (3.80-5.40) m/uL Hgb 14.6 (11.4-16.0) gm/dL Hct 43.5 (34.0-46.0) % MCV 98.6 (80.0-100.0) fL MCH 33.1 (25.0-35.0) pg MCHC 33.6 (31.0-37.0) g/dL RDW 13.0 (11.5-15.5) % Plt Count 278 (150-450) k/uL MPV 8.1 Neutrophils % 88 % Lymphocytes % 6 % Monocytes % 5 % Eosinophils % 0 % Basophils % 0 % Neutrophils # 21.1 H (1.3-7.7) k/uL Lymphocytes # 1.4 (1.0-4.8) k/uL Monocytes # 1.3 H (0-1.0) k/uL Eosinophils # 0.0 (0-0.7) k/uL Basophils # 0.0 (0-0.2) k/uL Sodium (137-145) mmol/L Potassium (3.5-5.1) mmol/L Chloride (98-107) mmol/L Carbon Dioxide (22-30) mmol/L Anion Gap mmol/L BUN (7-17) mg/dL Creatinine (0.52-1.04) mg/dL Est GFR (CKD-EPI)AfAm (>60 ml/min/1.73 sqM) Est GFR (CKD-EPI)NonAf (>60 ml/min/1.73 sqM) Glucose (74-99) mg/dL Calcium (8.4-10.2) mg/dL Total Bilirubin (0.2-1.3) mg/dL AST (14-36) U/L ALT (4-34) U/L Alkaline Phosphatase (38-126) U/L Total Protein (6.3-8.2) g/dL Albumin (3.5-5.0) g/dL Lipase (23-300) U/L Urine Color Light Yellow Urine Appearance Cloudy H (Clear) Urine pH 5.5 (5.0-8.0) Ur Specific Mck[place] 1.017 (1.001-1.035) Urine Protein 2+ H (Negative) Urine Glucose (UA) Negative (Negative) Urine Ketones 2+ H (Negative) Urine Blood Small H (Negative) Urine Nitrite Negative (Negative) Urine Bilirubin Negative (Negative) Urine Urobilinogen <2.0 (<2.0) mg/dL Ur Leukocyte Esterase Negative (Negative) Urine RBC 1 (0-5) /hpf Urine WBC 7 H (0-5) /hpf Ur Squamous Epith Cells 4 (0-4) /hpf Urine Bacteria Rare H (None) /hpf Urine Mucus Rare H (None) /hpf Urine HCG, Qual Not Detected (Not Detectd) 07/08/21 Range/Units 09:24 WBC (3.8-10.6) k/uL RBC (3.80-5.40) m/uL Hgb (11.4-16.0) gm/dL Hct (34.0-46.0) % MCV (80.0-100.0) fL MCH (25.0-35.0) pg MCHC (31.0-37.0) g/dL RDW (11.5-15.5) % Plt Count (150-450) k/uL MPV Neutrophils % % Lymphocytes % % Monocytes % % Eosinophils % % Basophils % % Neutrophils # (1.3-7.7) k/uL Lymphocytes # (1.0-4.8) k/uL Monocytes # (0-1.0) k/uL Eosinophils # (0-0.7) k/uL Basophils # (0-0.2) k/uL Sodium 143 (137-145) mmol/L Potassium 3.7 (3.5-5.1) mmol/L Chloride 113 H (98-107) mmol/L Carbon Dioxide 13 L (22-30) mmol/L Anion Gap 17 mmol/L BUN 6 L (7-17) mg/dL Creatinine 0.54 (0.52-1.04) mg/dL Est GFR (CKD-EPI)AfAm >90 (>60 ml/min/1.73 sqM) Est GFR (CKD-EPI)NonAf >90 (>60 ml/min/1.73 sqM) Glucose 99 (74-99) mg/dL Calcium 9.9 (8.4-10.2) mg/dL Total Bilirubin 0.6 (0.2-1.3) mg/dL AST 27 (14-36) U/L ALT 19 (4-34) U/L Alkaline Phosphatase 70 (38-126) U/L Total Protein 8.4 H (6.3-8.2) g/dL Albumin 4.9 (3.5-5.0) g/dL Lipase 57 (23-300) U/L Urine Color Urine Appearance (Clear) Urine pH (5.0-8.0) Ur Specific M[place] (1.001-1.035) Urine Protein (Negative) Urine Glucose (UA) (Negative) Urine Ketones (Negative) Urine Blood (Negative) Urine Nitrite (Negative) Urine Bilirubin (Negative) Urine Urobilinogen (<2.0) mg/dL Ur Leukocyte Esterase (Negative) Urine RBC (0-5) /hpf Urine WBC (0-5) /hpf Ur Squamous Epith Cells (0-4) /hpf Urine Bacteria (None) /hpf Urine Mucus (None) /hpf Urine HCG, Qual (Not Detectd) Disposition Clinical Impression: Nausea & vomiting Disposition: HOME SELF-CARE Condition: Good Instructions (If sedation given, give patient instructions): Acute Nausea and Vomiting (ED) Additional Instructions: Please follow-up with your primary care doctor for repeat blood work this week. If you have worsening symptoms or fevers return to the emergency room. Is patient prescribed a controlled substance at d/c from ED?: No Referrals: Andrey Humphries MD [Primary Care Provider] - 1-2 days Time of Disposition: 10:35
[2021-07-08 08:55] LABS: Basophils % (A) 0 %; Eosinophils % (A) 0 %; HCT 43.5 % (34.0-46.0); HGB 14.6 gm/dL (11.4-16.0); Lymphocytes # (A) 1.4 k/uL (1.0-4.8); Lymphocytes % (A) 6 %; MCH 33.1 pg (25.0-35.0); MCHC 33.6 g/dL (31.0-37.0); MCV 98.6 fL (80.0-100.0); Mean Platelet Volume 8.1; Monocytes # (A) 1.3 k/uL (0-1.0); Monocytes % (A) 5 %; Neutrophils # (A) 21.1 k/uL (1.3-7.7); Neutrophils % (A) 88 %; Platelet Count 278 k/uL (150-450); RBC 4.41 m/uL (3.80-5.40)
[2021-07-08 09:12] LABS: Appearance,Urine Cloudy (Clear); Bacteria,Urine Rare /hpf; Bilirubin,Urine Negative (Negative); Blood,Urine Small (Negative); Color,Urine Light Yellow; Glucose,Urine (UA) Negative (Negative); Ketones,Urine 2+ (Negative); Leukocyte Esterase,Urine Negative (Negative); Mucus,Urine Rare /hpf; Nitrite,Urine Negative (Negative); PH, Urine 5.5 (5.0-8.0); Protein,Urine 2+ (Negative); RBC,Urine 1 /hpf (0-5); Specific Gravity,Urine 1.017 (1.001-1.035); Squamous Epithelial Cell,Urine 4 /hpf (0-4); Urobilinogen,Urine <2.0 mg/dL (<2.0); WBC,Urine 7 /hpf (0-5)
[2021-07-08 09:55] LABS: ALT 19 U/L (4-34); AST 27 U/L (14-36); African American GFR (CKD) >90 (>60 ml/min/1.73 sqM); Albumin 4.9 g/dL (3.5-5.0); Alkaline Phosphatase 70 U/L (38-126); Anion Gap 17 mmol/L; Blood Urea Nitrogen 6 mg/dL (7-17); Calcium 9.9 mg/dL (8.4-10.2); Carbon Dioxide 13 mmol/L (22-30); Chloride 113 mmol/L (98-107); Glucose 99 mg/dL (74-99); Lipase 57 U/L (23-300); Non-African American GFR(CKD) >90 (>60 ml/min/1.73 sqM); Potassium 3.7 mmol/L (3.5-5.1); Sodium 143 mmol/L (137-145); Total Bilirubin 0.6 mg/dL (0.2-1.3); Total Protein 8.4 g/dL (6.3-8.2)
--- NOTE | 2021-07-08 10:08 | XR ---
EXAMINATION TYPE: XR chest 2V DATE OF EXAM: 07/08/2021 COMPARISON: Chest x-ray 05/25/2020 HISTORY: Pain TECHNIQUE: Frontal and lateral views of the chest are obtained. FINDINGS: There is no focal air space opacity, pleural effusion, or pneumothorax seen. The cardiac silhouette size is within normal limits. The osseous structures are intact gentle spinal curvature is again seen. Patient is rotated. There are overlying artifacts. Surgical clips are present right up per quadrant. IMPRESSION: No acute cardiopulmonary process.
[2021-07-08] MEDS ORDERED: LORazepam 1 MG TAB PO STA (10:50)
[2021-07-08] MEDS ORDERED: LORazepam 0.5 MG TAB PO STA (10:51)
== END 2021-07-08 11:42 | disposition home or self-care (01) ==
LOC: EC 07:53
DX: R11.2 Nausea with vomiting, unspecified (principal); F17.290 Nicotine dependence, other tobacco product, uncomplicated; K21.9 Gastro-esophageal reflux disease without esophagitis; Z79.899 Other long term (current) drug therapy
CPT/HCPCS: 36415; 80053; 83690; 85025; 81001; 81025; 71046; 99284; 96374; 96375; 96361; J2060; J2405

== ENCOUNTER 2021-08-19 23:17 | Emergency (ER) | payer OTHER ==
[2021-08-19 23:35] VITALS: TEMP 97.7
[2021-08-20] MEDS ORDERED: ONDANSETRON 4 MG/2 ML VIAL IVP STA (00:15)
[2021-08-20] MEDS ORDERED: SODIUM CHLORIDE 0.9% 1,000 ML IV STA (00:15)
[2021-08-20] MEDS ORDERED: diphenhydrAMINE 50 MG/ML 1 ML VIAL IVP STA (00:15)
[2021-08-20] MEDS ORDERED: LORazepam 2 MG/ML INJ IV STA (00:20)
--- NOTE | 2021-08-20 00:46 | XR ---
EXAMINATION TYPE: XR abdomen acute w cxr DATE OF EXAM: 08/20/2021 COMPARISON: 09/24/2019 HISTORY: Abdominal pain TECHNIQUE: 3 views FINDINGS: Heart and mediastinum are normal. Lungs are clear. Diaphragm is normal. Bowel gas pattern i s normal. There is no sign of intestinal obstruction or pneumoperitoneum. There are clips from cholec ystectomy. There is no evidence of abdominal mass. There are no pathologic abdominal calcifications. Bony structures are intact. IMPRESSION: Nonacute abdomen. Normal chest. No change.
[2021-08-20 01:05] LABS: Basophils # (A) 0.1 k/uL (0-0.2); Basophils % (A) 0 %; Eosinophils # (A) 0.1 k/uL (0-0.7); Eosinophils % (A) 1 %; HCT 45.1 % (34.0-46.0); HGB 14.8 gm/dL (11.4-16.0); Lymphocytes % (A) 6 %; MCH 32.3 pg (25.0-35.0); MCHC 32.8 g/dL (31.0-37.0); MCV 98.5 fL (80.0-100.0); Mean Platelet Volume 8.7; Monocytes # (A) 0.6 k/uL (0-1.0); Monocytes % (A) 4 %; Neutrophils # (A) 14.1 k/uL (1.3-7.7); Neutrophils % (A) 88 %; Platelet Count 258 k/uL (150-450); RBC 4.58 m/uL (3.80-5.40)
--- NOTE | 2021-08-20 01:26 | ED ---
Nausea/Vomiting/Diarrhea HPI - General Source: patient, family Mode of arrival: ambulatory Limitations: no limitations <Zuleima Greenwood - Last Filed: 08/20/21 02:50> <Carlyle Trejo - Last Filed: 09/07/21 02:40> - General Chief complaint: Nausea/Vomiting/Diarrhea Stated complaint: Vomiting Time Seen by Provider: 08/20/21 00:00 - History of Present Illness Initial comments: 25-year-old female presenting with chief complaint of vomiting. PMH of cholecystectomy and hiatal hernia. She describes this as one of her "episodes". Around 2 PM today started experiencing nausea and vomiting causing her to retch and produce bilious vomit. He is unable to tolerate oral fluids or food. She states she is experiencing chest pressure and abdominal pain, difficulty catching her breath, anxiety, and her hands are shaking. Patient is requesting a shot of Ativan. She is prescribed omeprazole and Pepcid that she takes daily, states she has not taken them for the last 4 days because she forgets to. Patient has a history of GI issues and [facility] states that she is currently undergoing a variety of studies. Patient denies diarrhea, palpitations, hematemesis, hematochezia, hemoptysis, cough, fever, chills, headache, vision or hearing changes, drug or alcohol use. (Zuleima Greenwood) - Related Data Home Medications Medication Instructions Recorded Confirmed Cholecalciferol [Vitamin D3 (25 50 mcg PO HS 07/08/21 07/08/21 Mcg = 1000 Iu)] Famotidine [Pepcid] 40 mg PO HS 07/08/21 07/08/21 Glycopyrrolate 1 mg PO HS 07/08/21 07/08/21 PARoxetine [Paxil] 20 mg PO HS 07/08/21 07/08/21 Previous Rx's Medication Instructions Recorded LORazepam [Ativan] 0.5 mg PO DAILY PRN #3 tab 06/03/21 Omeprazole 40 mg PO BID 30 Days cap 06/03/21 Allergies Allergy/AdvReac Type Severity Reaction Status Date / Time amoxicillin Allergy Rash/Hives Verified 09/03/21 23:09 Review of Systems ROS Other: All systems not noted in ROS Statement are negative. <Zuleima Greenwood - Last Filed: 08/20/21 02:50> ROS Other: All systems not noted in ROS Statement are negative. <Carlyle Trejo - Last Filed: 09/07/21 02:40> ROS Statement: Those systems with pertinent positive or pertinent negative responses have been documented in the HPI. Past Medical History Past Medical History: GERD/Reflux Additional Past Medical History / Comment(s): GERD, UTI History of Any Multi-Drug Resistant Organisms: None Reported Past Surgical History: Cholecystectomy Additional Past Surgical History / Comment(s): Cholecystectomy w/ ERCP on October 22, 2019. MRCP October 23, 2019. Ureteral stent placed for obstruction. Past Anesthesia/Blood Transfusion Reactions: No Reported Reaction Past Psychological History: Anxiety, Depression, PTSD Smoking Status: Current every day smoker, Vaper Past Alcohol Use History: None Reported Past Drug Use History: None Reported - Past Family History Mother Family Medical History: Hypertension <Zuleima Greenwood - Last Filed: 08/20/21 02:50> General Exam Limitations: no limitations General appearance: alert, anxious Head exam: Present: atraumatic, normocephalic, normal inspection Eye exam: Present: normal appearance, PERRL, EOMI. Absent: scleral icterus, conjunctival injection, periorbital swelling Neck exam: Present: normal inspection Respiratory exam: Present: normal lung sounds bilaterally. Absent: respiratory distress, wheezes, rales, rhonchi, stridor Cardiovascular Exam: Present: normal rhythm, tachycardia, normal heart sounds. Absent: systolic murmur, diastolic murmur, rubs, gallop, clicks GI/Abdominal exam: Present: soft, normal bowel sounds. Absent: distended, tenderness, guarding, rebound, rigid Neurological exam: Present: alert, oriented X3, CN II-XII intact Psychiatric exam: Present: anxious Skin exam: Present: warm, dry, intact, normal color. Absent: rash <Zuleima Greenwood - Last Filed: 08/20/21 02:50> Course <Zuleima Greenwood - Last Filed: 08/20/21 02:50> Vital Signs 08/19/21 08/20/21 08/20/21 23:29 03:03 04:00 Temperature 97.7 F Pulse Rate 116 H 94 90 Respiratory 22 16 16 Rate Blood Pressure 148/78 101/54 111/42 O2 Sat by Pulse 99 98 99 Oximetry - Reevaluation(s) Reevaluation #1: Patient is resting comfortably, sleeping at this time. She was given 1 mg Ativan, 25 mg Benadryl, 4 mg Zofran. Awaiting further lab work. 08/20/21 01:37 (Zuleima Greenwood) Reevaluation #2: Vision is requesting more Ativan. Patient is offered Haldol 2 mg 08/20/21 02:42 (Zuleima Greenwood) Medical Decision Making - Lab Data Result diagrams: 08/20/21 00:39 08/20/21 01:20 - Radiology Data Radiology results: report reviewed <Zuleima Greenwood - Last Filed: 08/20/21 02:50> - Lab Data Result diagrams: 08/20/21 00:39 08/20/21 01:20 <Carlyle Trejo - Last Filed: 09/07/21 02:40> - Medical Decision Making Patient is a 25-year-old female presenting with chief complaint of vomiting. She states that this is one of her "episodes". Around 2 PM today she began feeling nauseous and vomiting, this was accompanied by abdominal and chest pain. At presentation patient is hyperventilating and states her hands are uncontrollably shaking. Mother states patient has been noncompliant with her daily omeprazole and Pepcid for the last 4 days which may be why she is in pain. Throughout exam patient is retching and not producing vomit. He was given 1 mg Ativan, 25 mg Benadryl, 4 mg Zofran, and 2L NS bolus. Lab work is remarkable for hypokalemia with potassium of 3.1. Patient was given 40 equivalents potassium chloride and 1 g of magnesium. Abdominal series with chest x-ray is negative. Patient later requested more Ativan, she was given 2 mg of Haldol for anxiety and cyclical vomiting possibly due to daily marijuana use.I discussed the patent with the attending Dr. Trejo and signed her out to him at 02:57 (Zuleima Greenwood) I saw this patient in conjunction with the physician physicians assistant. I performed independent history and physical exam. Agree with case management. (Carlyle Trejo) - Lab Data Lab Results 08/20/21 08/20/21 Range/Units 00:39 01:20 WBC 16.0 H (3.8-10.6) k/uL RBC 4.58 (3.80-5.40) m/uL Hgb 14.8 (11.4-16.0) gm/dL Hct 45.1 (34.0-46.0) % MCV 98.5 (80.0-100.0) fL MCH 32.3 (25.0-35.0) pg MCHC 32.8 (31.0-37.0) g/dL RDW 13.0 (11.5-15.5) % Plt Count 258 (150-450) k/uL MPV 8.7 Neutrophils % 88 % Lymphocytes % 6 % Monocytes % 4 % Eosinophils % 1 % Basophils % 0 % Neutrophils # 14.1 H (1.3-7.7) k/uL Lymphocytes # 1.0 (1.0-4.8) k/uL Monocytes # 0.6 (0-1.0) k/uL Eosinophils # 0.1 (0-0.7) k/uL Basophils # 0.1 (0-0.2) k/uL Sodium 138 (137-145) mmol/L Potassium 3.1 L (3.5-5.1) mmol/L Chloride 115 H (98-107) mmol/L Carbon Dioxide 14 L (22-30) mmol/L Anion Gap 9 mmol/L BUN 8 (7-17) mg/dL Creatinine 0.54 (0.52-1.04) mg/dL Est GFR (CKD-EPI)AfAm >90 (>60 ml/min/1.73 sqM) Est GFR (CKD-EPI)NonAf >90 (>60 ml/min/1.73 sqM) Glucose 140 H (74-99) mg/dL Calcium 8.5 (8.4-10.2) mg/dL Total Bilirubin 1.1 (0.2-1.3) mg/dL AST 20 (14-36) U/L ALT 10 (4-34) U/L Alkaline Phosphatase 58 (38-126) U/L Total Protein 6.7 (6.3-8.2) g/dL Albumin 3.8 (3.5-5.0) g/dL Amylase 110 (30-110) U/L Lipase 79 (23-300) U/L - Radiology Data Abdominal series with chest x-ray: No acute process (Greenwood,Maloree) Disposition <Zuleima Greenwood - Last Filed: 08/20/21 02:50> Is patient prescribed a controlled substance at d/c from ED?: No <Carlyle Trejo - Last Filed: 09/07/21 02:40> Clinical Impression: Nausea and vomiting, Acute anxiety, Hypokalemia Disposition: HOME SELF-CARE Condition: Good Instructions (If sedation given, give patient instructions): Acute Nausea and Vomiting (ED) Referrals: Andrey Humphries MD [Primary Care Provider] - 1-2 days
[2021-08-20 02:00] LABS: ALT 10 U/L (4-34); AST 20 U/L (14-36); African American GFR (CKD) >90 (>60 ml/min/1.73 sqM); Albumin 3.8 g/dL (3.5-5.0); Alkaline Phosphatase 58 U/L (38-126); Amylase 110 U/L (30-110); Anion Gap 9 mmol/L; Blood Urea Nitrogen 8 mg/dL (7-17); Calcium 8.5 mg/dL (8.4-10.2); Carbon Dioxide 14 mmol/L (22-30); Chloride 115 mmol/L (98-107); Glucose 140 mg/dL (74-99); Lipase 79 U/L (23-300); Non-African American GFR(CKD) >90 (>60 ml/min/1.73 sqM); Potassium 3.1 mmol/L (3.5-5.1); Sodium 138 mmol/L (137-145); Total Bilirubin 1.1 mg/dL (0.2-1.3); Total Protein 6.7 g/dL (6.3-8.2)
[2021-08-20] MEDS ORDERED: HALOPERIDOL LACTATE 5 MG/ML 1 ML VIAL IVP STA (02:05)
[2021-08-20] MEDS ORDERED: MAGNESIUM SULFATE-D5W PMX 1 GM in DEXTROSE/WATER 1 100ML.BAG IVPB ONE (02:06)
[2021-08-20] MEDS ORDERED: POTASSIUM CHLORIDE ER 20 MEQ TAB.ER PO STA (02:06)
[2021-08-20] MEDS ORDERED: SODIUM CHLORIDE 0.9% 1,000 ML IV ONE (02:34)
[2021-08-20 03:04] VITALS: RESP 16
[2021-08-20 04:12] VITALS: BP 111/42; PULSE 90
== END 2021-08-20 04:47 | disposition home or self-care (01) ==
LOC: EC 23:17
DX: R11.10 Vomiting, unspecified (principal); F17.200 Nicotine dependence, unspecified, uncomplicated; R11.2 Nausea with vomiting, unspecified; F41.9 Anxiety disorder, unspecified; E87.6 Hypokalemia; Z88.0 Allergy status to penicillin
CPT/HCPCS: 36415; 93005; 80053; 82150; 83690; 85025; 74022; 99284; 96375; 96365; 96361; J2060; J1200; J1630; J2405; J3475

== ENCOUNTER 2021-09-03 22:19 | Emergency (ER) | payer OTHER ==
[2021-09-04] MEDS ORDERED: ONDANSETRON ODT 4 MG TAB PO STA (00:48)
[2021-09-04] MEDS ORDERED: SODIUM CHLORIDE 0.9% 1,000 ML IV ONE (01:11)
[2021-09-04] MEDS ORDERED: HALOPERIDOL LACTATE 5 MG/ML 1 ML VIAL IVP STA ×2 (01:15→04:12)
--- NOTE | 2021-09-04 01:34 | ED ---
General Adult HPI - General Chief complaint: Anxiety Stated complaint: Anxiety Time Seen by Provider: 09/04/21 00:56 Source: patient, family Mode of arrival: ambulatory Limitations: no limitations - History of Present Illness Initial comments: Patient is a 25-year-old woman here to be evaluated for nausea and vomiting. She has a history of similar pain and vomiting. She is recently started following gastroenterologists through the [facility]. This exacerbation started yesterday. The patient had been seen here earlier in August and had good result with IV fluids and Haldol and they were hoping have similar treatment. Onset/Timin -: days(s) Radiation: non-radiation Quality: burning, aching Consistency: constant Improves with: none Worsens with: none Associated Symptoms: nausea/vomiting Treatments Prior to Arrival: none - Related Data Home Medications Medication Instructions Recorded Confirmed Cholecalciferol [Vitamin D3 (25 50 mcg PO HS 07/08/21 07/08/21 Mcg = 1000 Iu)] Famotidine [Pepcid] 40 mg PO HS 07/08/21 07/08/21 Glycopyrrolate 1 mg PO HS 07/08/21 07/08/21 PARoxetine [Paxil] 20 mg PO HS 07/08/21 07/08/21 Previous Rx's Medication Instructions Recorded LORazepam [Ativan] 0.5 mg PO DAILY PRN #3 tab 06/03/21 Omeprazole 40 mg PO BID 30 Days cap 06/03/21 Allergies Allergy/AdvReac Type Severity Reaction Status Date / Time amoxicillin Allergy Rash/Hives Verified 09/03/21 23:09 Review of Systems ROS Statement: Those systems with pertinent positive or pertinent negative responses have been documented in the HPI. ROS Other: All systems not noted in ROS Statement are negative. Constitutional: Denies: fever, weakness Respiratory: Denies: cough, dyspnea Cardiovascular: Denies: chest pain, palpitations, edema Gastrointestinal: Reports: abdominal pain, nausea, vomiting. Denies: diarrhea, constipation Genitourinary: Denies: dysuria, hematuria, abnormal menses Musculoskeletal: Denies: back pain Skin: Denies: rash Neurological: Denies: headache, weakness Past Medical History Past Medical History: GERD/Reflux Additional Past Medical History / Comment(s): GERD, UTI History of Any Multi-Drug Resistant Organisms: None Reported Past Surgical History: Cholecystectomy Additional Past Surgical History / Comment(s): Cholecystectomy w/ ERCP on October 22, 2019. MRCP October 23, 2019. Ureteral stent placed for obstruction. Past Anesthesia/Blood Transfusion Reactions: No Reported Reaction Past Psychological History: Anxiety, Depression, PTSD Smoking Status: Current every day smoker, Vaper Past Alcohol Use History: None Reported Past Drug Use History: None Reported - Past Family History Mother Family Medical History: Hypertension General Exam Limitations: no limitations General appearance: alert, anxious Head exam: Present: atraumatic, normocephalic Eye exam: Present: normal appearance ENT exam: Present: normal oropharynx Respiratory exam: Present: normal lung sounds bilaterally. Absent: respiratory distress, wheezes, rales, rhonchi, stridor Cardiovascular Exam: Present: normal rhythm, tachycardia, normal heart sounds. Absent: systolic murmur, diastolic murmur, rubs, gallop GI/Abdominal exam: Present: soft. Absent: distended, tenderness, guarding, rebound, rigid, mass Extremities exam: Present: normal inspection, normal capillary refill Neurological exam: Present: alert Skin exam: Present: warm, dry, intact, normal color. Absent: rash Course Vital Signs 09/03/21 09/04/21 23:09 01:41 Temperature 97.9 F Pulse Rate 115 H 101 H Respiratory 22 18 Rate Blood Pressure 159/99 137/110 O2 Sat by Pulse 99 100 Oximetry Medical Decision Making - Lab Data Result diagrams: 09/04/21 01:40 09/04/21 01:40 Lab Results 09/04/21 09/04/21 Range/Units 01:40 01:40 WBC 19.5 H (3.8-10.6) k/uL RBC 4.37 (3.80-5.40) m/uL Hgb 14.0 (11.4-16.0) gm/dL Hct 41.5 (34.0-46.0) % MCV 94.9 (80.0-100.0) fL MCH 32.1 (25.0-35.0) pg MCHC 33.8 (31.0-37.0) g/dL RDW 12.4 (11.5-15.5) % Plt Count 327 (150-450) k/uL MPV 7.6 Neutrophils % 87 % Lymphocytes % 7 % Monocytes % 5 % Eosinophils % 1 % Basophils % 0 % Neutrophils # 16.9 H (1.3-7.7) k/uL Lymphocytes # 1.3 (1.0-4.8) k/uL Monocytes # 0.9 (0-1.0) k/uL Eosinophils # 0.2 (0-0.7) k/uL Basophils # 0.1 (0-0.2) k/uL Sodium 136 L (137-145) mmol/L Potassium 4.5 (3.5-5.1) mmol/L Chloride 107 (98-107) mmol/L Carbon Dioxide 15 L (22-30) mmol/L Anion Gap 14 mmol/L BUN 5 L (7-17) mg/dL Creatinine 0.51 L (0.52-1.04) mg/dL Est GFR (CKD-EPI)AfAm >90 (>60 ml/min/1.73 sqM) Est GFR (CKD-EPI)NonAf >90 (>60 ml/min/1.73 sqM) Glucose 160 H (74-99) mg/dL Calcium 10.5 H (8.4-10.2) mg/dL Total Bilirubin 1.2 (0.2-1.3) mg/dL AST 46 H (14-36) U/L ALT 18 (4-34) U/L Alkaline Phosphatase 81 (38-126) U/L Total Protein 8.8 H (6.3-8.2) g/dL Albumin 5.0 (3.5-5.0) g/dL Amylase 134 H (30-110) U/L Lipase 65 (23-300) U/L Disposition Clinical Impression: Nausea and vomiting Disposition: HOME SELF-CARE Condition: Good Instructions (If sedation given, give patient instructions): Acute Nausea and Vomiting (ED) Is patient prescribed a controlled substance at d/c from ED?: No Referrals: Andrey Humphries MD [Primary Care Provider] - 1-2 days
[2021-09-04 01:43] VITALS: RESP 18
[2021-09-04 01:44] LABS: Basophils # (A) 0.1 k/uL (0-0.2); Basophils % (A) 0 %; Eosinophils # (A) 0.2 k/uL (0-0.7); Eosinophils % (A) 1 %; HCT 41.5 % (34.0-46.0); Lymphocytes # (A) 1.3 k/uL (1.0-4.8); Lymphocytes % (A) 7 %; MCH 32.1 pg (25.0-35.0); MCHC 33.8 g/dL (31.0-37.0); MCV 94.9 fL (80.0-100.0); Mean Platelet Volume 7.6; Monocytes # (A) 0.9 k/uL (0-1.0); Monocytes % (A) 5 %; Neutrophils # (A) 16.9 k/uL (1.3-7.7); Neutrophils % (A) 87 %; Platelet Count 327 k/uL (150-450); RBC 4.37 m/uL (3.80-5.40); RDW 12.4 % (11.5-15.5); WBC 19.5 k/uL (3.8-10.6)
[2021-09-04 01:55] LABS: ALT 18 U/L (4-34); AST 46 U/L (14-36); African American GFR (CKD) >90 (>60 ml/min/1.73 sqM); Alkaline Phosphatase 81 U/L (38-126); Amylase 134 U/L (30-110); Anion Gap 14 mmol/L; Blood Urea Nitrogen 5 mg/dL (7-17); Calcium 10.5 mg/dL (8.4-10.2); Carbon Dioxide 15 mmol/L (22-30); Chloride 107 mmol/L (98-107); Glucose 160 mg/dL (74-99); Lipase 65 U/L (23-300); Non-African American GFR(CKD) >90 (>60 ml/min/1.73 sqM); Sodium 136 mmol/L (137-145); Total Bilirubin 1.2 mg/dL (0.2-1.3); Total Protein 8.8 g/dL (6.3-8.2)
[2021-09-04 01:58] LABS: Potassium 4.5 mmol/L (3.5-5.1)
[2021-09-04] MEDS ORDERED: SODIUM CHLORIDE 0.9% 500 ML 500 ML IV STA (04:12)
[2021-09-04] MEDS ORDERED: FAMOTIDINE 20 MG/2 ML VIAL IV STA (04:12)
[2021-09-04 04:37] LABS: Appearance,Urine Clear (Clear); Bilirubin,Urine Negative (Negative); Blood,Urine Moderate (Negative); Color,Urine Yellow; Glucose,Urine (UA) Negative (Negative); Hyaline Casts,Urine 1 /lpf (0-2); Ketones,Urine 3+ (Negative); Leukocyte Esterase,Urine Negative (Negative); Mucus,Urine Many /hpf; Nitrite,Urine Negative (Negative); PH, Urine 7.5 (5.0-8.0); Protein,Urine Trace (Negative); RBC,Urine 3 /hpf (0-5); Specific Gravity,Urine 1.016 (1.001-1.035); Squamous Epithelial Cell,Urine 3 /hpf (0-4); Urobilinogen,Urine <2.0 mg/dL (<2.0); WBC,Urine 3 /hpf (0-5)
[2021-09-04 05:47] VITALS: BP 132/79; PULSE 78; TEMP 98.9
== END 2021-09-04 05:47 | disposition home or self-care (01) ==
LOC: EC 22:19
DX: R11.2 Nausea with vomiting, unspecified (principal); F17.290 Nicotine dependence, other tobacco product, uncomplicated; K21.9 Gastro-esophageal reflux disease without esophagitis; Z88.0 Allergy status to penicillin; Z79.899 Other long term (current) drug therapy
CPT/HCPCS: 36415; 80053; 82150; 83690; 85025; 81001; 81025; 99284; 96374; 96375; 96376; J1630

== ENCOUNTER 2021-11-13 15:25 | Emergency (ER) | payer OTHER ==
[2021-11-13 15:48] VITALS: TEMP 98.3
[2021-11-13] MEDS ORDERED: diphenhydrAMINE 50 MG/ML 1 ML VIAL IVP STA (16:10)
[2021-11-13] MEDS ORDERED: METOCLOPRAMIDE 5 MG/ML 2 ML VIAL IVP STA (16:10)
[2021-11-13] MEDS ORDERED: SODIUM CHLORIDE 0.9% 1,000 ML IV STA (16:10)
[2021-11-13] MEDS ORDERED: ACETAMINOPHEN IV (For NPO) 1,000 MG in EMPTY BAG 1 BAG IVPB STA (16:11)
--- NOTE | 2021-11-13 16:42 | ED ---
Nausea/Vomiting/Diarrhea HPI - General Chief complaint: Nausea/Vomiting/Diarrhea Stated complaint: Vomiting Time Seen by Provider: 11/13/21 15:56 Source: patient, RN notes reviewed Mode of arrival: ambulatory Limitations: no limitations - History of Present Illness Initial comments: This is a 26-year-old female who is 7 weeks and presents to the emergency department for nausea and vomiting. Patient states that over the last 2 days she has been unable to keep anything down. Unsure how many times she has thrown up. She does have some mid abdominal pain and took ibuprofen for this which was not helpful. Denies any vaginal bleeding or discharge. She has her first obstetrics appointment on November 25. She is unsure which provider or which office this is that, but states that it is in town. This is also her first . Denies any fevers, chills, sore throat, cough, dyspnea, chest pain, palpitations, diarrhea, back pain, or headaches. MD complaint: nausea, vomiting, abdominal pain Onset/Timin -: days(s) Associated Abdominal Pain: Yes Quality: cramping - Related Data Home Medications Medication Instructions Recorded Confirmed Famotidine [Pepcid] 40 mg PO DAILY 11/13/21 11/13/21 Omeprazole 40 mg PO DAILY 11/13/21 11/13/21 Previous Rx's Medication Instructions Recorded Cephalexin [Keflex] 500 mg PO Q8HR 4 Days #12 cap 11/13/21 Allergies Allergy/AdvReac Type Severity Reaction Status Date / Time amoxicillin Allergy Rash/Hives Verified 11/13/21 17:03 Review of Systems ROS Statement: Those systems with pertinent positive or pertinent negative responses have been documented in the HPI. ROS Other: All systems not noted in ROS Statement are negative. Past Medical History Past Medical History: GERD/Reflux Additional Past Medical History / Comment(s): GERD, UTI History of Any Multi-Drug Resistant Organisms: None Reported Past Surgical History: Cholecystectomy Additional Past Surgical History / Comment(s): Cholecystectomy w/ ERCP on October 22, 2019. MRCP October 23, 2019. Ureteral stent placed for obstruction. Past Anesthesia/Blood Transfusion Reactions: No Reported Reaction Past Psychological History: Anxiety, Depression, PTSD Smoking Status: Current some day smoker, Vaper Past Alcohol Use History: None Reported Past Drug Use History: Marijuana - Past Family History Mother Family Medical History: Hypertension General Exam Limitations: no limitations General appearance: alert, in no apparent distress Head exam: Present: atraumatic, normocephalic, normal inspection Respiratory exam: Present: normal lung sounds bilaterally. Absent: respiratory distress, wheezes, rales, rhonchi, stridor Cardiovascular Exam: Present: regular rate, normal rhythm, normal heart sounds. Absent: systolic murmur, diastolic murmur, rubs, gallop, clicks GI/Abdominal exam: Present: normal bowel sounds Neurological exam: Present: alert, oriented X3, CN II-XII intact Psychiatric exam: Present: normal affect, normal mood Skin exam: Present: warm, dry, intact, normal color. Absent: rash Course Vital Signs 11/13/21 11/13/21 15:42 18:22 Temperature 98.3 F Pulse Rate 106 H 96 Respiratory 18 16 Rate Blood Pressure 122/76 109/68 O2 Sat by Pulse 96 99 Oximetry Medical Decision Making - Medical Decision Making This is a 26-year-old female who presents to the emergency department for nausea and vomiting in . Patient given IV fluids along with Reglan, Benadryl, and vitamin B6. Given that she was still in a lot of pain and unable to keep down any food or medication, she was given Ofirmev. I discussed with her that she needs to avoid anti-inflammatories such as ibuprofen in and only take Tylenol. I also advised she take vitamin B6 and Unisom for nausea and vomiting. She should discuss all other medications with her remote inpatient coder at her first appointment to avoid taking anything that could be harmful to her or the fetus. She'll was able to eat Jell-O and ice chips prior to discharge. She stated that she felt much better than she did initially. Lab work was overall nonactionable. UA does reveal a minor amount of white blood cells and bacteria. Patient will be treated with 4 days of Keflex for asymptomatic bacteriuria. Return precautions reviewed in depth, the patient is instructed to return to the emergency department with any new, worsening, or concerning symptoms. Patient verbalized understanding. This case was discussed in detail with the attending ED physician. Presentation, findings, and treatment plan discussed in detail as well. - Lab Data Result diagrams: 11/13/21 16:12 11/13/21 16:12 Lab Results 11/13/21 11/13/21 11/13/21 Range/Units 16:12 16:12 16:25 WBC 13.6 H (3.8-10.6) k/uL RBC 4.84 (3.80-5.40) m/uL Hgb 15.1 (11.4-16.0) gm/dL Hct 46.2 H (34.0-46.0) % MCV 95.5 (80.0-100.0) fL MCH 31.1 (25.0-35.0) pg MCHC 32.6 (31.0-37.0) g/dL RDW 12.9 (11.5-15.5) % Plt Count 309 (150-450) k/uL MPV 7.1 Neutrophils % 74 % Lymphocytes % 18 % Monocytes % 6 % Eosinophils % 0 % Basophils % 0 % Neutrophils # 10.0 H (1.3-7.7) k/uL Lymphocytes # 2.4 (1.0-4.8) k/uL Monocytes # 0.9 (0-1.0) k/uL Eosinophils # 0.0 (0-0.7) k/uL Basophils # 0.0 (0-0.2) k/uL Sodium 135 L (137-145) mmol/L Potassium 3.4 L (3.5-5.1) mmol/L Chloride 100 (98-107) mmol/L Carbon Dioxide 22 (22-30) mmol/L Anion Gap 13 mmol/L BUN 12 (7-17) mg/dL Creatinine 0.62 (0.52-1.04) mg/dL Est GFR (CKD-EPI)AfAm >90 (>60 ml/min/1.73 sqM) Est GFR (CKD-EPI)NonAf >90 (>60 ml/min/1.73 sqM) Glucose 78 (74-99) mg/dL Calcium 10.9 H (8.4-10.2) mg/dL Total Bilirubin 0.9 (0.2-1.3) mg/dL AST 29 (14-36) U/L ALT 20 (4-34) U/L Alkaline Phosphatase 81 (38-126) U/L Total Protein 8.7 H (6.3-8.2) g/dL Albumin 5.0 (3.5-5.0) g/dL Urine Color Yellow Urine Appearance Cloudy H (Clear) Urine pH 6.5 (5.0-8.0) Ur Specific [place] 1.030 (1.001-1.035) Urine Protein 2+ H (Negative) Urine Glucose (UA) Negative (Negative) Urine Ketones 4+ H (Negative) Urine Blood Trace H (Negative) Urine Nitrite Negative (Negative) Urine Bilirubin Negative (Negative) Urine Urobilinogen <2.0 (<2.0) mg/dL Ur Leukocyte Esterase Negative (Negative) Urine RBC 13 H (0-5) /hpf Urine WBC 8 H (0-5) /hpf Ur Squamous Epith Cells 28 H (0-4) /hpf Urine Bacteria Rare H (None) /hpf Urine Mucus Many H (None) /hpf Disposition Clinical Impression: Nausea and vomiting during , Asymptomatic bacteriuria during Disposition: HOME SELF-CARE Instructions (If sedation given, give patient instructions): Nausea and Vomiting in (ED) Additional Instructions: Return to the emergency department with any new, worsening, or concerning symptoms. Follow-up with your remote inpatient coder as scheduled. Take vitamin B6 and Unisom as needed for nausea and vomiting. Both of these can be purchased [id number]. Take Tylenol for pain and avoid anti-inflammatories such as ibuprofen. Also make sure that you are taking a vitamin. Keflex prescribed to be taken for 4 days. If you experience any allergic reactions, stop taking this immediately and take Benadryl. Prescriptions: Cephalexin [Keflex] 500 mg PO Q8HR 4 Days #12 cap Is patient prescribed a controlled substance at d/c from ED?: No Referrals: Andrey Humphries MD [Primary Care Provider] - 1-2 days
[2021-11-13 16:44] LABS: Basophils % (A) 0 %; Eosinophils % (A) 0 %; HCT 46.2 % (34.0-46.0); HGB 15.1 gm/dL (11.4-16.0); Lymphocytes # (A) 2.4 k/uL (1.0-4.8); Lymphocytes % (A) 18 %; MCH 31.1 pg (25.0-35.0); MCHC 32.6 g/dL (31.0-37.0); MCV 95.5 fL (80.0-100.0); Mean Platelet Volume 7.1; Monocytes # (A) 0.9 k/uL (0-1.0); Monocytes % (A) 6 %; Neutrophils % (A) 74 %; Platelet Count 309 k/uL (150-450); RBC 4.84 m/uL (3.80-5.40); RDW 12.9 % (11.5-15.5); WBC 13.6 k/uL (3.8-10.6)
[2021-11-13 16:46] LABS: Appearance,Urine Cloudy (Clear); Bacteria,Urine Rare /hpf; Bilirubin,Urine Negative (Negative); Blood,Urine Trace (Negative); Color,Urine Yellow; Glucose,Urine (UA) Negative (Negative); Ketones,Urine 4+ (Negative); Leukocyte Esterase,Urine Negative (Negative); Mucus,Urine Many /hpf; Nitrite,Urine Negative (Negative); PH, Urine 6.5 (5.0-8.0); Protein,Urine 2+ (Negative); RBC,Urine 13 /hpf (0-5); Squamous Epithelial Cell,Urine 28 /hpf (0-4); Urobilinogen,Urine <2.0 mg/dL (<2.0); WBC,Urine 8 /hpf (0-5)
[2021-11-13 16:55] LABS: ALT 20 U/L (4-34); AST 29 U/L (14-36); African American GFR (CKD) >90 (>60 ml/min/1.73 sqM); Alkaline Phosphatase 81 U/L (38-126); Anion Gap 13 mmol/L; Blood Urea Nitrogen 12 mg/dL (7-17); Calcium 10.9 mg/dL (8.4-10.2); Carbon Dioxide 22 mmol/L (22-30); Chloride 100 mmol/L (98-107); Glucose 78 mg/dL (74-99); Non-African American GFR(CKD) >90 (>60 ml/min/1.73 sqM); Potassium 3.4 mmol/L (3.5-5.1); Sodium 135 mmol/L (137-145); Total Bilirubin 0.9 mg/dL (0.2-1.3); Total Protein 8.7 g/dL (6.3-8.2)
[2021-11-13] MEDS ORDERED: PYRIDOXINE 100 MG/ML 1 ML VIAL IVP SCH (18:00)
[2021-11-13 18:29] VITALS: BP 109/68; PULSE 96; RESP 16
== END 2021-11-13 18:29 | disposition home or self-care (01) ==
LOC: EC 15:25
DX: O23.91 Unspecified genitourinary tract infection in pregnancy, first trimester (principal); O99.611 Diseases of the digestive system complicating pregnancy, first trimester; R82.71 Bacteriuria; R11.2 Nausea with vomiting, unspecified; Z79.83 Long term (current) use of bisphosphonates; K21.9 Gastro-esophageal reflux disease without esophagitis; F17.209 Nicotine dependence, unspecified, with unspecified nicotine-induced disorders; Z88.0 Allergy status to penicillin; Z3A.01 Less than 8 weeks gestation of pregnancy
CPT/HCPCS: 36415; 80053; 85025; 81001; 84702; 99284; 96374; 96375; 96361; J1200; J2765; J0131

== ENCOUNTER 2022-03-05 06:39 | Emergency (ER) | payer OTHER ==
[2022-03-05] MEDS ORDERED: METOCLOPRAMIDE 5 MG/ML 2 ML VIAL IVP STA (06:49)
[2022-03-05] MEDS ORDERED: FAMOTIDINE 20 MG/2 ML VIAL IV STA (06:50)
[2022-03-05] MEDS ORDERED: SODIUM CHLORIDE 0.9% 1,000 ML IV ONE (06:50)
[2022-03-05 07:23] LABS: Appearance,Urine Turbid (Clear); Bacteria,Urine Rare /hpf; Bilirubin,Urine Negative (Negative); Blood,Urine Small (Negative); Color,Urine Yellow; Glucose,Urine (UA) Negative (Negative); Hyaline Casts,Urine 5 /lpf (0-2); Ketones,Urine Negative (Negative); Leukocyte Esterase,Urine Negative (Negative); Mucus,Urine Many /hpf; Nitrite,Urine Negative (Negative); PH, Urine 6.5 (5.0-8.0); Protein,Urine 1+ (Negative); RBC,Urine 14 /hpf (0-5); Specific Gravity,Urine 1.023 (1.001-1.035); Squamous Epithelial Cell,Urine 59 /hpf (0-4); WBC,Urine 5 /hpf (0-5)
[2022-03-05] MEDS ORDERED: KETOROLAC 15 MG/ML 1 ML VIAL IVP STA (07:27)
[2022-03-05] MEDS ORDERED: ONDANSETRON 4 MG/2 ML VIAL IVP STA (07:27)
[2022-03-05 07:38] LABS: ALT 18 U/L (4-34); AST 29 U/L (14-36); African American GFR (CKD) >90 (>60 ml/min/1.73 sqM); Alkaline Phosphatase 101 U/L (38-126); Amylase 125 U/L (30-110); Anion Gap 12 mmol/L; Blood Urea Nitrogen 8 mg/dL (7-17); Calcium 9.1 mg/dL (8.4-10.2); Carbon Dioxide 25 mmol/L (22-30); Chloride 103 mmol/L (98-107); Glucose 82 mg/dL (74-99); Lipase 110 U/L (23-300); Non-African American GFR(CKD) >90 (>60 ml/min/1.73 sqM); Potassium 3.6 mmol/L (3.5-5.1); Sodium 140 mmol/L (137-145); Total Bilirubin 0.6 mg/dL (0.2-1.3); Total Protein 8.1 g/dL (6.3-8.2)
[2022-03-05 07:42] LABS: Basophils # (A) 0.1 k/uL (0-0.2); Basophils % (A) 1 %; Eosinophils # (A) 0.2 k/uL (0-0.7); Eosinophils % (A) 1 %; HCT 45.5 % (34.0-46.0); HGB 15.6 gm/dL (11.4-16.0); Lymphocytes % (A) 15 %; MCHC 34.3 g/dL (31.0-37.0); MCV 93.3 fL (80.0-100.0); Monocytes # (A) 0.7 k/uL (0-1.0); Monocytes % (A) 5 %; Neutrophils # (A) 10.1 k/uL (1.3-7.7); Neutrophils % (A) 76 %; Platelet Count 253 k/uL (150-450); RBC 4.87 m/uL (3.80-5.40); RDW 12.7 % (11.5-15.5); WBC 13.4 k/uL (3.8-10.6)
--- NOTE | 2022-03-05 07:51 | ED ---
Nausea/Vomiting/Diarrhea HPI - General Chief complaint: Nausea/Vomiting/Diarrhea Stated complaint: Vomiting,ABD Pain,Chest Pain, SOB Time Seen by Provider: 03/05/22 06:43 Source: patient, RN notes reviewed Mode of arrival: ambulatory Limitations: no limitations - History of Present Illness Initial comments: This is a 26-year-old female who presents to the emergency department for nausea and vomiting. States that the symptoms began last night. Patient does report regular marijuana use and has been treated for cannabinoid hyperemesis syndrome in the past and had good response with Haldol. Patient does make note of having a hiatal hernia. Denies any abdominal pain, but states that she has chest pressure. She attributes this to anxiety and burning from all of the vomiting. Additionally, she reports coughing and congestion for the last couple of days. Her boyfriend has been sick with very similar symptoms and she wonders if this may be related to food poisoning or gastroenteritis. She does also report coughing and congestion for the last 2 days. Denies any fevers, chills, dyspnea, palpitations, diarrhea, back pain, or headaches. MD complaint: nausea, vomiting Associated Abdominal Pain: No Associated Symptoms: chest pain, cough - Related Data Home Medications Medication Instructions Recorded Confirmed Famotidine [Pepcid] 40 mg PO DAILY 11/13/21 11/13/21 Omeprazole 40 mg PO DAILY 11/13/21 11/13/21 Previous Rx's Medication Instructions Recorded Cephalexin [Keflex] 500 mg PO Q8HR 4 Days #12 cap 11/13/21 Metoclopramide [Reglan] 10 mg PO Q6H PRN #20 tab 03/05/22 Nirmatrelvir/Ritonavir [Paxlovid 1 each PO BID 5 Days #10 each 03/05/22 300-100 mg Pack (Eua)] haloperidoL [Haldol] 2 mg PO TID PRN #20 tablet 03/05/22 Allergies Allergy/AdvReac Type Severity Reaction Status Date / Time amoxicillin Allergy Rash/Hives Verified 03/05/22 06:42 Review of Systems ROS Statement: Those systems with pertinent positive or pertinent negative responses have been documented in the HPI. ROS Other: All systems not noted in ROS Statement are negative. Past Medical History Past Medical History: GERD/Reflux Additional Past Medical History / Comment(s): GERD, UTI History of Any Multi-Drug Resistant Organisms: None Reported Past Surgical History: Cholecystectomy Additional Past Surgical History / Comment(s): Cholecystectomy w/ ERCP on October 22, 2019. MRCP October 23, 2019. Ureteral stent placed for obstruction. Past Anesthesia/Blood Transfusion Reactions: No Reported Reaction Past Psychological History: Anxiety, Depression, PTSD Smoking Status: Current some day smoker, Vaper Past Alcohol Use History: None Reported Past Drug Use History: Marijuana - Past Family History Mother Family Medical History: Hypertension General Exam General appearance: alert, in distress Head exam: Present: atraumatic, normocephalic, normal inspection Respiratory exam: Present: normal lung sounds bilaterally. Absent: respiratory distress, wheezes, rales, rhonchi, stridor, chest wall tenderness Cardiovascular Exam: Present: regular rate, normal rhythm, normal heart sounds. Absent: systolic murmur, diastolic murmur, rubs, gallop, clicks GI/Abdominal exam: Present: soft, hyperactive bowel sounds. Absent: distended, tenderness Neurological exam: Present: alert, oriented X3, CN II-XII intact Psychiatric exam: Present: normal affect, normal mood Skin exam: Present: warm, dry, intact, normal color. Absent: rash Course Vital Signs 03/05/22 06:42 Temperature 98.5 F Pulse Rate 87 Respiratory 16 Rate Blood Pressure 133/84 O2 Sat by Pulse 98 Oximetry Medical Decision Making - Medical Decision Making This is a 26-year-old female who presents to the emergency department for nausea, vomiting, and abdominal pain. Lab work reveals leukocytosis, likely reactive from the vomiting. Lab work was otherwise nonactionable. Urinalysis is consistent with contamination. Patient given IV fluids, Toradol, Zofran, and Pepcid. Additionally, patient requests Haldol for the anxiety and vomiting, this was provided as well. Patient had significant improvement in symptoms following medication administration. Patient did also test positive for COVID- 19. Prescription for Paxlovid provided. Advised that this can make some people feel ill, in which case she can stop taking it. Prescriptions for Reglan and Haldol provided as well to treat the nausea and vomiting. Advised she avoid taking these together as much as possible due to risk of QTc prolongation. She is also instructed to remain well-hydrated and slowly advance her diet as tolerated. She is also instructed to quarantine for 5 days and practice extra precautions for an additional 5 days, including always wearing a mask around others and avoiding travel. Return precautions reviewed in depth, the patient is instructed to return to the emergency department with any new, worsening, or concerning symptoms. Patient verbalized understanding. This case was discussed in detail with the attending ED physician. Presentation, findings, and treatment plan discussed in detail as well. - Lab Data Result diagrams: 03/05/22 07:13 03/05/22 07:13 Lab Results 03/05/22 03/05/22 03/05/22 Range/Units 07:12 07:13 07:13 WBC 13.4 H (3.8-10.6) k/uL RBC 4.87 (3.80-5.40) m/uL Hgb 15.6 (11.4-16.0) gm/dL Hct 45.5 (34.0-46.0) % MCV 93.3 (80.0-100.0) fL MCH 32.0 (25.0-35.0) pg MCHC 34.3 (31.0-37.0) g/dL RDW 12.7 (11.5-15.5) % Plt Count 253 (150-450) k/uL MPV 8.0 Neutrophils % 76 % Lymphocytes % 15 % Monocytes % 5 % Eosinophils % 1 % Basophils % 1 % Neutrophils # 10.1 H (1.3-7.7) k/uL Lymphocytes # 2.0 (1.0-4.8) k/uL Monocytes # 0.7 (0-1.0) k/uL Eosinophils # 0.2 (0-0.7) k/uL Basophils # 0.1 (0-0.2) k/uL Sodium 140 (137-145) mmol/L Potassium 3.6 (3.5-5.1) mmol/L Chloride 103 (98-107) mmol/L Carbon Dioxide 25 (22-30) mmol/L Anion Gap 12 mmol/L BUN 8 (7-17) mg/dL Creatinine 0.69 (0.52-1.04) mg/dL Est GFR (CKD-EPI)AfAm >90 (>60 ml/min/1.73 sqM) Est GFR (CKD-EPI)NonAf >90 (>60 ml/min/1.73 sqM) Glucose 82 (74-99) mg/dL Calcium 9.1 (8.4-10.2) mg/dL Total Bilirubin 0.6 (0.2-1.3) mg/dL AST 29 (14-36) U/L ALT 18 (4-34) U/L Alkaline Phosphatase 101 (38-126) U/L Total Protein 8.1 (6.3-8.2) g/dL Albumin 5.0 (3.5-5.0) g/dL Amylase 125 H (30-110) U/L Lipase 110 (23-300) U/L Urine Color Urine Appearance (Clear) Urine pH (5.0-8.0) Ur Specific [place] (1.001-1.035) Urine Protein (Negative) Urine Glucose (UA) (Negative) Urine Ketones (Negative) Urine Blood (Negative) Urine Nitrite (Negative) Urine Bilirubin (Negative) Urine Urobilinogen (<2.0) mg/dL Ur Leukocyte Esterase (Negative) Urine RBC (0-5) /hpf Urine WBC (0-5) /hpf Ur Squamous Epith Cells (0-4) /hpf Urine Bacteria (None) /hpf Hyaline Casts (0-2) /lpf Urine Mucus (None) /hpf Urine HCG, Qual Not Detected (Not Detectd) Coronavirus (PCR) (Not Detectd) 03/05/22 03/05/22 Range/Units 07:14 08:56 WBC (3.8-10.6) k/uL RBC (3.80-5.40) m/uL Hgb (11.4-16.0) gm/dL Hct (34.0-46.0) % MCV (80.0-100.0) fL MCH (25.0-35.0) pg MCHC (31.0-37.0) g/dL RDW (11.5-15.5) % Plt Count (150-450) k/uL MPV Neutrophils % % Lymphocytes % % Monocytes % % Eosinophils % % Basophils % % Neutrophils # (1.3-7.7) k/uL Lymphocytes # (1.0-4.8) k/uL Monocytes # (0-1.0) k/uL Eosinophils # (0-0.7) k/uL Basophils # (0-0.2) k/uL Sodium (137-145) mmol/L Potassium (3.5-5.1) mmol/L Chloride (98-107) mmol/L Carbon Dioxide (22-30) mmol/L Anion Gap mmol/L BUN (7-17) mg/dL Creatinine (0.52-1.04) mg/dL Est GFR (CKD-EPI)AfAm (>60 ml/min/1.73 sqM) Est GFR (CKD-EPI)NonAf (>60 ml/min/1.73 sqM) Glucose (74-99) mg/dL Calcium (8.4-10.2) mg/dL Total Bilirubin (0.2-1.3) mg/dL AST (14-36) U/L ALT (4-34) U/L Alkaline Phosphatase (38-126) U/L Total Protein (6.3-8.2) g/dL Albumin (3.5-5.0) g/dL Amylase (30-110) U/L Lipase (23-300) U/L Urine Color Yellow Urine Appearance Turbid H (Clear) Urine pH 6.5 (5.0-8.0) Ur Specific [place] 1.023 (1.001-1.035) Urine Protein 1+ H (Negative) Urine Glucose (UA) Negative (Negative) Urine Ketones Negative (Negative) Urine Blood Small H (Negative) Urine Nitrite Negative (Negative) Urine Bilirubin Negative (Negative) Urine Urobilinogen 2.0 (<2.0) mg/dL Ur Leukocyte Esterase Negative (Negative) Urine RBC 14 H (0-5) /hpf Urine WBC 5 (0-5) /hpf Ur Squamous Epith Cells 59 H (0-4) /hpf Urine Bacteria Rare H (None) /hpf Hyaline Casts 5 H (0-2) /lpf Urine Mucus Many H (None) /hpf Urine HCG, Qual (Not Detectd) Coronavirus (PCR) Detected A (Not Detectd) - EKG Data EKG Comments: Sinus rhythm with sinus arrhythmia. Ventricular rate 91 bpm, RI interval 132 ms, QRS duration 81 ms, QTC 392 ms. Disposition Clinical Impression: COVID-19, Nausea and vomiting Disposition: HOME SELF-CARE Instructions (If sedation given, give patient instructions): Acute Nausea and Vomiting (ED), COVID-19 (Coronavirus Disease 2019) (ED), How to Recover from COVID-19 at Home (ED) Additional Instructions: Return to the emergency department with any new, worsening, or concerning symptoms. You can take the Reglan up to every 6 hours and the Haldol up to every 8 hours as needed for nausea and vomiting. Try to avoid taking both of them together with any regularity, unless symptoms are severe. Take the Paxlovid as prescribed for 5 days. If this starts to make you feel ill, stop taking it. You will need to quarantine for 5 days and practice extra precautions for an additional 5 days, including always wearing a mask around others and avoiding travel. Prescriptions: haloperidoL [Haldol] 2 mg PO TID PRN #20 tablet PRN Reason: Nausea And Vomiting Nirmatrelvir/Ritonavir [Paxlovid 300-100 mg Pack (Eua)] 1 each PO BID 5 Days #10 each Metoclopramide [Reglan] 10 mg PO Q6H PRN #20 tab PRN Reason: Nausea And Vomiting Is patient prescribed a controlled substance at d/c from ED?: No Referrals: Andrey Humphries MD [Primary Care Provider] - 1-2 days
[2022-03-05] MEDS ORDERED: HALOPERIDOL LACTATE 5 MG/ML 1 ML VIAL IVP ONE (08:18)
[2022-03-05 09:59] VITALS: BP 150/90; PULSE 90; RESP 18; TEMP 98.9
== END 2022-03-05 09:59 | disposition home or self-care (01) ==
LOC: EC 06:39
DX: U07.1 COVID-19 (principal); R11.2 Nausea with vomiting, unspecified; K21.9 Gastro-esophageal reflux disease without esophagitis; F41.9 Anxiety disorder, unspecified; F32.A Depression, unspecified; F17.290 Nicotine dependence, other tobacco product, uncomplicated; F12.90 Cannabis use, unspecified, uncomplicated; Z88.1 Allergy status to other antibiotic agents; Z79.899 Other long term (current) drug therapy
CPT/HCPCS: 36415; 93005; 80053; 82150; 83690; 85025; 81001; 81025; 87635; 99285; 96374; 96375 ×3; 96361; J1630; J2405; J1885

== ENCOUNTER 2022-03-16 12:02 | Emergency (ER) | payer OTHER ==
[2022-03-16 12:11] VITALS: RESP 20; TEMP 98.4
[2022-03-16] MEDS ORDERED: SODIUM CHLORIDE 0.9% 1,000 ML IV ONE (12:37)
[2022-03-16 13:00] LABS: Basophils # (A) 0.1 k/uL (0-0.2); Basophils % (A) 1 %; Eosinophils # (A) 0.1 k/uL (0-0.7); Eosinophils % (A) 1 %; HCT 43.3 % (34.0-46.0); HGB 14.1 gm/dL (11.4-16.0); Lymphocytes # (A) 2.6 k/uL (1.0-4.8); Lymphocytes % (A) 34 %; MCH 31.5 pg (25.0-35.0); MCHC 32.5 g/dL (31.0-37.0); MCV 96.8 fL (80.0-100.0); Mean Platelet Volume 7.3; Monocytes # (A) 0.4 k/uL (0-1.0); Monocytes % (A) 5 %; Neutrophils # (A) 4.4 k/uL (1.3-7.7); Neutrophils % (A) 57 %; Platelet Count 324 k/uL (150-450); RBC 4.48 m/uL (3.80-5.40); RDW 12.4 % (11.5-15.5); WBC 7.8 k/uL (3.8-10.6)
[2022-03-16 13:08] LABS: ALT 18 U/L (4-34); AST 26 U/L (14-36); African American GFR (CKD) >90 (>60 ml/min/1.73 sqM); Alkaline Phosphatase 85 U/L (38-126); Anion Gap 16 mmol/L; Blood Urea Nitrogen 9 mg/dL (7-17); Calcium 9.8 mg/dL (8.4-10.2); Carbon Dioxide 24 mmol/L (22-30); Chloride 106 mmol/L (98-107); Glucose 83 mg/dL (74-99); Magnesium 2.2 mg/dL (1.6-2.3); Non-African American GFR(CKD) >90 (>60 ml/min/1.73 sqM); Potassium 3.8 mmol/L (3.5-5.1); Sodium 146 mmol/L (137-145); Total Bilirubin 0.6 mg/dL (0.2-1.3); Total Protein 8.1 g/dL (6.3-8.2)
[2022-03-16 13:10] LABS: Alcohol 205 mg/dL
[2022-03-16] MEDS ORDERED: DIPH,PERTUS(ACELL)TETVAC-LF 0.5 ML VIAL IM ONE (13:13)
--- NOTE | 2022-03-16 13:13 | ED ---
General Adult HPI - General Source: patient, police, RN notes reviewed, old records reviewed Mode of arrival: ambulatory Limitations: no limitations <Anthony Lam - Last Filed: 03/16/22 20:31> <Wilver Zaragoza - Last Filed: 03/17/22 01:35> - General Chief complaint: Psychiatric Symptoms Stated complaint: mental health Time Seen by Provider: 03/16/22 12:05 - History of Present Illness Initial comments: This is a 26-year-old female presents emergency Department in police custody. Police were called us in because she had superficially cut both of her wrists and she had made comments about wanting to kill herself. Police did petition the patient and they did hear her make comments about wanting to harm her self. Patient denies this to me at this time but she has stated she has attempted to kill herself over 20 times because she hates her life. Patient denies having taken any pills or any illegal drugs. Patient denies any physical complaints today. Patient denies headache patient denies numbness weakness. Patient denies lightheadedness. Patient denies any chest pain palpitations difficulty b reathing shortness of breath. Patient any recent cough or fever. Patient denies any abdominal pain. Patient states she is on her period. (Anthony Lam) - Related Data Home Medications Medication Instructions Recorded Confirmed Omeprazole 40 mg PO DAILY 11/13/21 03/16/22 Naltrexone Microspheres [Vivitrol] 380 mg IM DIRECTED 03/16/22 03/16/22 QUEtiapine FUMARATE [SEROquel] 25 mg PO HS 03/16/22 03/16/22 Venlafaxine HCl ER [Effexor Xr] 75 mg PO DAILY 03/16/22 03/16/22 cloNIDine HCL [Catapres] 0.1 mg PO BID 03/16/22 03/16/22 haloperidoL [Haldol] 2 mg PO TID PRN 03/16/22 03/16/22 Previous Rx's Medication Instructions Recorded Metoclopramide [Reglan] 10 mg PO Q6H PRN #20 tab 03/05/22 Allergies Allergy/AdvReac Type Severity Reaction Status Date / Time amoxicillin Allergy Rash/Hives Verified 03/16/22 13:44 Review of Systems ROS Other: All systems not noted in ROS Statement are negative. <GenaroAnthony - Last Filed: 03/16/22 20:31> ROS Other: All systems not noted in ROS Statement are negative. <Wilver Zaragoza Susan - Last Filed: 03/17/22 01:35> ROS Statement: Those systems with pertinent positive or pertinent negative responses have been documented in the HPI. Past Medical History Past Medical History: GERD/Reflux Additional Past Medical History / Comment(s): GERD, UTI History of Any Multi-Drug Resistant Organisms: None Reported Past Surgical History: Cholecystectomy Additional Past Surgical History / Comment(s): Cholecystectomy w/ ERCP on October 22, 2019. MRCP October 23, 2019. Ureteral stent placed for obstruction. Past Anesthesia/Blood Transfusion Reactions: No Reported Reaction Past Psychological History: Anxiety, Depression, PTSD Smoking Status: Current some day smoker, Vaper Past Alcohol Use History: None Reported Past Drug Use History: Marijuana - Past Family History Mother Family Medical History: Hypertension <Anthony Lam - Last Filed: 03/16/22 20:31> General Exam Limitations: no limitations <Anthony Lam - Last Filed: 03/16/22 20:31> - General Exam Comments Initial Comments: GENERAL: Patient is well-developed and well-nourished. Patient is nontoxic and well- hydrated and is in no acute distress. ENT: Neck is soft and supple. No significant lymphadenopathy is noted. Oropharynx is clear. Moist mucous membranes. Neck has full range of motion without eliciting any pain. EYES: The sclera were anicteric and conjunctiva were pink and moist. Extraocular movements were intact and pupils were equal round and reactive to light. Eye lids were unremarkable. PULMONARY: Unlabored respirations. Good breath sounds bilaterally. No audible rales rhonchi or wheezing was noted. CARDIOVASCULAR: There is a regular rate and rhythm without any murmurs gallops or rubs. ABDOMEN: Soft and nontender with normal bowel sounds. SKIN: Patient is very superficial lacerations to bilateral wrists. NEUROLOGIC: Patient is alert and oriented x3. Cranial nerves II through XII are grossly intact. Motor and sensory are also intact. Normal speech, volume and content. Symmetrical smile. MUSCULOSKELETAL: Normal extremities with adequate strength and full range of motion. No lower extremity swelling or edema. No calf tenderness. LYMPHATICS: No significant lymphadenopathy is noted PSYCHIATRIC: Patient appears intoxicated unable to 2 psychiatric evaluation. (Anthony Lam) Course Vital Signs 03/16/22 12:08 Temperature 98.4 F Pulse Rate 93 Respiratory 20 Rate Blood Pressure 126/89 O2 Sat by Pulse 99 Oximetry Medical Decision Making - Lab Data Result diagrams: 03/16/22 12:52 03/16/22 12:52 <Anthony Lam - Last Filed: 03/16/22 20:31> - Lab Data Result diagrams: 03/16/22 12:52 03/16/22 12:52 <Wilver Zaragoza - Last Filed: 03/17/22 01:35> - Medical Decision Making Dr. Zaragoza will be taking over the care of this patient at 9 PM (Anthony Lam) Patient care was sent out to me by previous shift physician, Dr. Lam. Briefly, patient 26-year-old female presents with alcohol intoxication and suicidal b ehavior. She had several superficial cuts to the upper extremities. Patient was observed for clinical sobriety and then cleared for EPS evaluation. Patient was evaluated by EPS recommended discharge. She no longer reported suicidal ideation. She does have a safe discharge plan. She also has been given outpatient resources. (Wilver Zaragoza) - Lab Data Lab Results 03/16/22 03/16/22 03/16/22 Range/Units 12:52 12:52 12:52 WBC 7.8 (3.8-10.6) k/uL RBC 4.48 (3.80-5.40) m/uL Hgb 14.1 (11.4-16.0) gm/dL Hct 43.3 (34.0-46.0) % MCV 96.8 (80.0-100.0) fL MCH 31.5 (25.0-35.0) pg MCHC 32.5 (31.0-37.0) g/dL RDW 12.4 (11.5-15.5) % Plt Count 324 (150-450) k/uL MPV 7.3 Neutrophils % 57 % Lymphocytes % 34 % Monocytes % 5 % Eosinophils % 1 % Basophils % 1 % Neutrophils # 4.4 (1.3-7.7) k/uL Lymphocytes # 2.6 (1.0-4.8) k/uL Monocytes # 0.4 (0-1.0) k/uL Eosinophils # 0.1 (0-0.7) k/uL Basophils # 0.1 (0-0.2) k/uL Sodium 146 H (137-145) mmol/L Potassium 3.8 (3.5-5.1) mmol/L Chloride 106 (98-107) mmol/L Carbon Dioxide 24 (22-30) mmol/L Anion Gap 16 mmol/L BUN 9 (7-17) mg/dL Creatinine 0.70 (0.52-1.04) mg/dL Est GFR (CKD-EPI)AfAm >90 (>60 ml/min/1.73 sqM) Est GFR (CKD-EPI)NonAf >90 (>60 ml/min/1.73 sqM) Glucose 83 (74-99) mg/dL Calcium 9.8 (8.4-10.2) mg/dL Magnesium 2.2 (1.6-2.3) mg/dL Total Bilirubin 0.6 (0.2-1.3) mg/dL AST 26 (14-36) U/L ALT 18 (4-34) U/L Alkaline Phosphatase 85 (38-126) U/L Total Protein 8.1 (6.3-8.2) g/dL Albumin 5.0 (3.5-5.0) g/dL Urine Opiates Screen Not Detected (NotDetected) Ur Oxycodone Screen Not Detected (NotDetected) Urine Methadone Screen Not Detected (NotDetected) Ur Propoxyphene Screen Not Detected (NotDetected) Ur Barbiturates Screen Not Detected (NotDetected) U Tricyclic Antidepress Not Detected (NotDetected) Ur Phencyclidine Scrn Not Detected (NotDetected) Ur Amphetamines Screen Not Detected (NotDetected) U Methamphetamines Scrn Not Detected (NotDetected) U Benzodiazepines Scrn Not Detected (NotDetected) Urine Cocaine Screen Not Detected (NotDetected) U Marijuana (THC) Screen Detected H (NotDetected) Serum Alcohol 205 H* mg/dL Disposition <Anthony Lam - Last Filed: 03/16/22 20:31> Is patient prescribed a controlled substance at d/c from ED?: No Time of Disposition: 01:35 <Wilver Zaragoza - Last Filed: 03/17/22 01:35> Clinical Impression: Alcohol intoxication, Suicidal behavior Disposition: HOME SELF-CARE Condition: Fair Instructions (If sedation given, give patient instructions): Help Prevent Suicide (ED), Alcohol Intoxication (ED) Referrals: Andrey Humphries MD [Primary Care Provider] - 1-2 days
[2022-03-16 13:18] LABS: Amphetamine Screen,Urine Not Detected (NotDetected); Barbiturate Screen,Urine Not Detected (NotDetected); Benzodiazepines Screen,Urine Not Detected (NotDetected); Cocaine Screen,Urine Not Detected (NotDetected); Methadone Screen, Urine Not Detected (NotDetected); Opiate Screen,Urine Not Detected (NotDetected); Oxycodone Screen, Urine Not Detected (NotDetected); Phencyclidine Screen,Urine Not Detected (NotDetected); Tricyclic Antidepressant,Urine Not Detected (NotDetected); Urn Cannabinoid Scrn Detected (NotDetected)
[2022-03-17 01:55] VITALS: BP 128/79; PULSE 97
[2022-03-17] MEDS ORDERED: QUEtiapine 25 MG TAB PO SCH (21:00)
== END 2022-03-17 01:58 | disposition home or self-care (01) ==
LOC: EC 12:02
DX: R45.851 Suicidal ideations (principal); S61.512A Laceration without foreign body of left wrist, initial encounter; S61.511A Laceration without foreign body of right wrist, initial encounter; F10.129 Alcohol abuse with intoxication, unspecified; F17.290 Nicotine dependence, other tobacco product, uncomplicated; K21.9 Gastro-esophageal reflux disease without esophagitis; Z90.49 Acquired absence of other specified parts of digestive tract; Z88.1 Allergy status to other antibiotic agents; Z79.899 Other long term (current) drug therapy; Z23 Encounter for immunization; X78.8XXA Intentional self-harm by other sharp object, initial encounter; Y90.7 Blood alcohol level of 200-239 mg/100 ml; Y92.89 Other specified places as the place of occurrence of the external cause
CPT/HCPCS: 99285; 90471; 82075; 36415; 80053; 83735; 85025; 80306; 90715; G0480; 80320

== ENCOUNTER 2022-03-17 06:33 | Emergency (ER) | payer OTHER ==
[2022-03-17 06:42] VITALS: RESP 22; TEMP 98.1
--- NOTE | 2022-03-17 08:07 | ED ---
General Adult HPI - General Chief complaint: Recheck/Abnormal Lab/Rx Stated complaint: Chest Pain Time Seen by Provider: 03/17/22 06:44 Source: patient, RN notes reviewed Mode of arrival: EMS Limitations: no limitations - History of Present Illness Initial comments: 26-year-old female presents emergency Department chief complaint anxiety, nausea vomiting. Patient was just discharged a few hours ago after having evaluation by psychiatric services and acute alcohol intoxication. Patient started having episodes of vomiting in which she states from anxiety. Patient denies being suicidal or homicidal denies any localized abdominal pain. Patient states she does feel tightness in her chest. Patient denies fevers chills no other complaints. She states is recurrent common issue for her. - Related Data Home Medications Medication Instructions Recorded Confirmed Omeprazole 40 mg PO DAILY 11/13/21 03/16/22 Naltrexone Microspheres [Vivitrol] 380 mg IM DIRECTED 03/16/22 03/16/22 QUEtiapine FUMARATE [SEROquel] 25 mg PO HS 03/16/22 03/16/22 Venlafaxine HCl ER [Effexor Xr] 75 mg PO DAILY 03/16/22 03/16/22 cloNIDine HCL [Catapres] 0.1 mg PO BID 03/16/22 03/16/22 haloperidoL [Haldol] 2 mg PO TID PRN 03/16/22 03/16/22 Previous Rx's Medication Instructions Recorded Metoclopramide [Reglan] 10 mg PO Q6H PRN #20 tab 03/05/22 Ondansetron Odt [Zofran Odt] 4 mg PO Q8HR PRN #10 tab 03/17/22 Allergies Allergy/AdvReac Type Severity Reaction Status Date / Time amoxicillin Allergy Rash/Hives Verified 03/17/22 07:29 Review of Systems ROS Statement: Those systems with pertinent positive or pertinent negative responses have been documented in the HPI. ROS Other: All systems not noted in ROS Statement are negative. Past Medical History Past Medical History: GERD/Reflux Additional Past Medical History / Comment(s): GERD, UTI History of Any Multi-Drug Resistant Organisms: None Reported Past Surgical History: Cholecystectomy Additional Past Surgical History / Comment(s): Cholecystectomy w/ ERCP on October 22, 2019. MRCP October 23, 2019. Ureteral stent placed for obstruction. Past Anesthesia/Blood Transfusion Reactions: No Reported Reaction Past Psychological History: Anxiety, Depression, PTSD Smoking Status: Current some day smoker, Vaper Past Alcohol Use History: None Reported Past Drug Use History: Marijuana - Past Family History Mother Family Medical History: Hypertension General Exam Limitations: no limitations General appearance: alert, in no apparent distress Head exam: Present: atraumatic, normocephalic, normal inspection Eye exam: Present: normal appearance, PERRL, EOMI. Absent: scleral icterus, conjunctival injection, periorbital swelling ENT exam: Present: normal exam, normal oropharynx, mucous membranes moist Neck exam: Present: normal inspection, full ROM. Absent: tenderness, meningismus, lymphadenopathy Respiratory exam: Present: normal lung sounds bilaterally. Absent: respiratory distress, wheezes, rales, rhonchi, stridor Cardiovascular Exam: Present: regular rate, normal rhythm, normal heart sounds. Absent: systolic murmur, diastolic murmur, rubs, gallop, clicks GI/Abdominal exam: Present: soft, normal bowel sounds. Absent: distended, tenderness, guarding, rebound, rigid Course Vital Signs 03/17/22 06:35 Temperature 98.1 F Pulse Rate 85 Respiratory 22 Rate Blood Pressure 143/95 O2 Sat by Pulse 98 Oximetry Medical Decision Making - Medical Decision Making 26-year-old presented for nausea vomiting that he issues chronic in nature. Patient was given droperidol IM symptoms have resolved. Patient discharged in stable condition return parameters were discussed. Disposition Clinical Impression: Acute anxiety, Nausea & vomiting Disposition: HOME SELF-CARE Condition: Stable Instructions (If sedation given, give patient instructions): Anxiety (ED) Additional Instructions: Please return to the Emergency Department if symptoms worsen or any other concerns. Prescriptions: Ondansetron Odt [Zofran Odt] 4 mg PO Q8HR PRN #10 tab PRN Reason: Nausea Is patient prescribed a controlled substance at d/c from ED?: No Referrals: Andrey Humphries MD [Primary Care Provider] - 1-2 days Time of Disposition: 08:07
[2022-03-17 08:38] VITALS: BP 148/94; PULSE 101
== END 2022-03-17 08:45 | disposition home or self-care (01) ==
LOC: EC 06:33
DX: F41.9 Anxiety disorder, unspecified (principal); R11.2 Nausea with vomiting, unspecified; K21.9 Gastro-esophageal reflux disease without esophagitis; F17.290 Nicotine dependence, other tobacco product, uncomplicated; Z79.899 Other long term (current) drug therapy; Z88.0 Allergy status to penicillin
CPT/HCPCS: 93005; 96372; 99283; J1790

== ENCOUNTER 2022-08-22 12:40 | Emergency (ER) | payer OTHER ==
[2022-08-22 12:44] VITALS: TEMP 98.6
[2022-08-22] MEDS ORDERED: METOCLOPRAMIDE 5 MG/ML 2 ML VIAL IVP STA (13:01)
[2022-08-22] MEDS ORDERED: SODIUM CHLORIDE 0.9% 1,000 ML IV STA ×2 (13:01→13:03)
[2022-08-22 13:02] VITALS: RESP 20
[2022-08-22] MEDS ORDERED: LORazepam 2 MG/ML INJ IV STA (13:02)
[2022-08-22 13:21] LABS: Basophils # (A) 0.1 k/uL (0-0.2); Basophils % (A) 1 %; Eosinophils # (A) 0.1 k/uL (0-0.7); Eosinophils % (A) 0 %; HGB 15.9 gm/dL (11.4-16.0); Lymphocytes # (A) 1.8 k/uL (1.0-4.8); Lymphocytes % (A) 16 %; MCH 31.6 pg (25.0-35.0); MCHC 33.1 g/dL (31.0-37.0); MCV 95.4 fL (80.0-100.0); Mean Platelet Volume 7.4; Monocytes # (A) 0.7 k/uL (0-1.0); Monocytes % (A) 6 %; Neutrophils # (A) 8.8 k/uL (1.3-7.7); Neutrophils % (A) 76 %; Platelet Count 287 k/uL (150-450); RBC 5.03 m/uL (3.80-5.40); RDW 14.1 % (11.5-15.5); WBC 11.5 k/uL (3.8-10.6)
[2022-08-22 13:27] LABS: Appearance,Urine Cloudy (Clear); Bilirubin,Urine Negative (Negative); Blood,Urine Negative (Negative); Color,Urine Yellow; Glucose,Urine (UA) Negative (Negative); Ketones,Urine 3+ (Negative); Leukocyte Esterase,Urine Negative (Negative); Mucus,Urine Many /hpf; Nitrite,Urine Negative (Negative); Protein,Urine 2+ (Negative); RBC,Urine 9 /hpf (0-5); Specific Gravity,Urine 1.032 (1.001-1.035); Squamous Epithelial Cell,Urine 10 /hpf (0-4); WBC,Urine 8 /hpf (0-5)
[2022-08-22 13:30] LABS: ALT 20 U/L (4-34); AST 26 U/L (14-36); African American GFR (CKD) >90 (>60 ml/min/1.73 sqM); Albumin 5.3 g/dL (3.5-5.0); Alkaline Phosphatase 79 U/L (38-126); Anion Gap 16 mmol/L; Blood Urea Nitrogen 11 mg/dL (7-17); Calcium 10.9 mg/dL (8.4-10.2); Carbon Dioxide 22 mmol/L (22-30); Chloride 103 mmol/L (98-107); Glucose 88 mg/dL (74-99); Lipase 251 U/L (23-300); Non-African American GFR(CKD) >90 (>60 ml/min/1.73 sqM); Potassium 4.1 mmol/L (3.5-5.1); Sodium 141 mmol/L (137-145); Total Bilirubin 1.7 mg/dL (0.2-1.3); Total Protein 9.3 g/dL (6.3-8.2)
--- NOTE | 2022-08-22 14:21 | ED ---
General Adult HPI - General Chief complaint: Recheck/Abnormal Lab/Rx Stated complaint: stomach pain Time Seen by Provider: 08/22/22 12:46 Source: patient Mode of arrival: ambulatory Limitations: no limitations - History of Present Illness Initial comments: This 26-year-old female presents with complaint of nausea and vomiting and decreased appetite present for the last 4 days. She denies any abdominal pain or fevers. She has had occasional diarrhea episodes. She states that even looking at food seems to make her nauseated. She states that when she gets into hot water than this makes her symptoms feel improved. She does relate a history of recurrent multiple previous similar incidents in the past. She's been to our facility multiple times in the past. She's been worked up at [facility] as well. She has had her gallbladder out and this did not help. She has been told in the past that she has marijuana hyperemesis syndrome but she continues to utilize marijuana negating the fact that this is possible. She also complains of some moderate anxiety. She denies any other complaints or modifying factors. - Related Data Home Medications Medication Instructions Recorded Confirmed Omeprazole 40 mg PO DAILY 11/13/21 03/17/22 Naltrexone Microspheres [Vivitrol] 380 mg IM DIRECTED 03/16/22 03/17/22 QUEtiapine FUMARATE [SEROquel] 25 mg PO HS 03/16/22 03/17/22 Venlafaxine HCl ER [Effexor Xr] 75 mg PO DAILY 03/16/22 03/17/22 cloNIDine HCL [Catapres] 0.1 mg PO BID 03/16/22 03/17/22 haloperidoL [Haldol] 2 mg PO TID PRN 03/16/22 03/17/22 Previous Rx's Medication Instructions Recorded Metoclopramide [Reglan] 10 mg PO Q6H PRN #20 tab 03/05/22 Ondansetron Odt [Zofran Odt] 4 mg PO Q8HR PRN #10 tab 03/17/22 Metoclopramide HCl [Reglan] 10 mg PO Q6H PRN #20 tab 08/22/22 Allergies Allergy/AdvReac Type Severity Reaction Status Date / Time amoxicillin Allergy Rash/Hives Verified 08/22/22 12:44 Review of Systems ROS Statement: Those systems with pertinent positive or pertinent negative responses have been documented in the HPI. ROS Other: All systems not noted in ROS Statement are negative. Past Medical History Past Medical History: GERD/Reflux Additional Past Medical History / Comment(s): GERD, UTI History of Any Multi-Drug Resistant Organisms: None Reported Past Surgical History: Cholecystectomy Additional Past Surgical History / Comment(s): Cholecystectomy w/ ERCP on October 22, 2019. MRCP October 23, 2019. Ureteral stent placed for obstruction. Past Anesthesia/Blood Transfusion Reactions: No Reported Reaction Past Psychological History: Anxiety, Depression, PTSD Smoking Status: Current some day smoker, Vaper Past Alcohol Use History: None Reported Past Drug Use History: Marijuana - Past Family History Mother Family Medical History: Hypertension General Exam - General Exam Comments Initial Comments: GENERAL: The patient is well nourished and well hydrated. VITAL SIGNS: Heart rate, blood pressure, respiratory rate reviewed as recorded in nurse's notes. EYES: Pupils are round and reactive. Extraocular movements are intact. No con junctival / lid redness or swelling. ENT: No external evidence of injury, swelling, or ecchymosis. Airway is patent. Throat is clear. NECK: Nontender. No swelling or evidence of injury. No subcutaneous emphysema. Trachea is midline. No thyroid mass. HEART: Regular rate and rhythm. Good peripheral pulses. LUNGS/CHEST: Breath sounds clear and equal bilaterally. No rales, rhonchi, or wheezes. No ecchymosis, subcutaneous emphysema, or tenderness. ABDOMEN: Abdomen soft without tenderness. No palpable masses or organomegaly. No peritoneal signs. No abdominal wall swelling or ecchymosis. EXTREMITIES: No extremity tenderness. Normal muscle tone and function. No thoracolumbar tenderness. NEUROLOGIC: Sensation is grossly intact. Cranial nerve exam reveals face is symmetrical, tongue is midline, speech is clear. SKIN: No abrasions or ecchymosis is noted. No induration or masses noted. PSYCHIATRIC: Alert and oriented. Appropriate behavior and judgment. Limitations: no limitations Course Vital Signs 08/22/22 08/22/22 08/22/22 12:42 12:44 13:44 Temperature 98.6 F Pulse Rate 100 100 88 Respiratory 16 20 20 Rate Blood Pressure 131/83 120/60 100/60 O2 Sat by Pulse 99 98 99 Oximetry Medical Decision Making - Lab Data Result diagrams: 08/22/22 13:02 08/22/22 13:02 Lab Results 08/22/22 08/22/22 08/22/22 Range/Units 13:02 13:02 13:02 WBC 11.5 H (3.8-10.6) k/uL RBC 5.03 (3.80-5.40) m/uL Hgb 15.9 (11.4-16.0) gm/dL Hct 48.0 H (34.0-46.0) % MCV 95.4 (80.0-100.0) fL MCH 31.6 (25.0-35.0) pg MCHC 33.1 (31.0-37.0) g/dL RDW 14.1 (11.5-15.5) % Plt Count 287 (150-450) k/uL MPV 7.4 Neutrophils % 76 % Lymphocytes % 16 % Monocytes % 6 % Eosinophils % 0 % Basophils % 1 % Neutrophils # 8.8 H (1.3-7.7) k/uL Lymphocytes # 1.8 (1.0-4.8) k/uL Monocytes # 0.7 (0-1.0) k/uL Eosinophils # 0.1 (0-0.7) k/uL Basophils # 0.1 (0-0.2) k/uL Sodium 141 (137-145) mmol/L Potassium 4.1 (3.5-5.1) mmol/L Chloride 103 (98-107) mmol/L Carbon Dioxide 22 (22-30) mmol/L Anion Gap 16 mmol/L BUN 11 (7-17) mg/dL Creatinine 0.62 (0.52-1.04) mg/dL Est GFR (CKD-EPI)AfAm >90 (>60 ml/min/1.73 sqM) Est GFR (CKD-EPI)NonAf >90 (>60 ml/min/1.73 sqM) Glucose 88 (74-99) mg/dL Calcium 10.9 H (8.4-10.2) mg/dL Total Bilirubin 1.7 H (0.2-1.3) mg/dL AST 26 (14-36) U/L ALT 20 (4-34) U/L Alkaline Phosphatase 79 (38-126) U/L Total Protein 9.3 H (6.3-8.2) g/dL Albumin 5.3 H (3.5-5.0) g/dL Lipase 251 (23-300) U/L Urine Color Yellow Urine Appearance Cloudy H (Clear) Urine pH 6.0 (5.0-8.0) Ur Specific [place] 1.032 (1.001-1.035) Urine Protein 2+ H (Negative) Urine Glucose (UA) Negative (Negative) Urine Ketones 3+ H (Negative) Urine Blood Negative (Negative) Urine Nitrite Negative (Negative) Urine Bilirubin Negative (Negative) Urine Urobilinogen 4.0 (<2.0) mg/dL Ur Leukocyte Esterase Negative (Negative) Urine RBC 9 H (0-5) /hpf Urine WBC 8 H (0-5) /hpf Ur Squamous Epith Cells 10 H (0-4) /hpf Urine Mucus Many H (None) /hpf Urine HCG, Qual (Not Detectd) 08/22/22 Range/Units 13:02 WBC (3.8-10.6) k/uL RBC (3.80-5.40) m/uL Hgb (11.4-16.0) gm/dL Hct (34.0-46.0) % MCV (80.0-100.0) fL MCH (25.0-35.0) pg MCHC (31.0-37.0) g/dL RDW (11.5-15.5) % Plt Count (150-450) k/uL MPV Neutrophils % % Lymphocytes % % Monocytes % % Eosinophils % % Basophils % % Neutrophils # (1.3-7.7) k/uL Lymphocytes # (1.0-4.8) k/uL Monocytes # (0-1.0) k/uL Eosinophils # (0-0.7) k/uL Basophils # (0-0.2) k/uL Sodium (137-145) mmol/L Potassium (3.5-5.1) mmol/L Chloride (98-107) mmol/L Carbon Dioxide (22-30) mmol/L Anion Gap mmol/L BUN (7-17) mg/dL Creatinine (0.52-1.04) mg/dL Est GFR (CKD-EPI)AfAm (>60 ml/min/1.73 sqM) Est GFR (CKD-EPI)NonAf (>60 ml/min/1.73 sqM) Glucose (74-99) mg/dL Calcium (8.4-10.2) mg/dL Total Bilirubin (0.2-1.3) mg/dL AST (14-36) U/L ALT (4-34) U/L Alkaline Phosphatase (38-126) U/L Total Protein (6.3-8.2) g/dL Albumin (3.5-5.0) g/dL Lipase (23-300) U/L Urine Color Urine Appearance (Clear) Urine pH (5.0-8.0) Ur Specific [place] (1.001-1.035) Urine Protein (Negative) Urine Glucose (UA) (Negative) Urine Ketones (Negative) Urine Blood (Negative) Urine Nitrite (Negative) Urine Bilirubin (Negative) Urine Urobilinogen (<2.0) mg/dL Ur Leukocyte Esterase (Negative) Urine RBC (0-5) /hpf Urine WBC (0-5) /hpf Ur Squamous Epith Cells (0-4) /hpf Urine Mucus (None) /hpf Urine HCG, Qual Not Detected (Not Detectd) Disposition Clinical Impression: Cannabis hyperemesis 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 Please follow-up with their doctor in regards to additional medications in regards to your anxiety. Please follow-up with your window assembler in the next 2-4 days. Prescriptions: Metoclopramide HCl [Reglan] 10 mg PO Q6H PRN #20 tab PRN Reason: Nausea And Vomiting Is patient prescribed a controlled substance at d/c from ED?: No Referrals: Andrey Humphries MD [Primary Care Provider] - 1-2 days Time of Disposition: 15:22
[2022-08-22 15:22] VITALS: PULSE 100
[2022-08-22 15:48] VITALS: BP 110/60
== END 2022-08-22 15:49 | disposition home or self-care (01) ==
LOC: EC 12:40
DX: F12.10 Cannabis abuse, uncomplicated (principal); E86.0 Dehydration; F41.9 Anxiety disorder, unspecified; R11.2 Nausea with vomiting, unspecified; K21.9 Gastro-esophageal reflux disease without esophagitis; F32.A Depression, unspecified; F17.290 Nicotine dependence, other tobacco product, uncomplicated; Z79.899 Other long term (current) drug therapy; Z88.0 Allergy status to penicillin
CPT/HCPCS: 36415; 80053; 83690; 85025; 81001; 81025; 99284; 96374; 96375; 96361 ×3; J2060; J2765

== ENCOUNTER 2024-01-20 17:02 | Emergency (ER) | payer OTHER ==
[2024-01-20] MEDS ORDERED: ONDANSETRON 4 MG/2 ML VIAL ONE (17:58)
[2024-01-20] MEDS ORDERED: SODIUM CHLORIDE 0.9% 1,000 ML BAG ONE (18:00)
[2024-01-20] MEDS ORDERED: droPERidol 5 MG/2 ML VIAL ONE (18:40)
== END 2024-01-20 21:55 | disposition home or self-care (01) ==
LOC: EC 17:02
CPT/HCPCS: 96374; 96375; 99284

== ENCOUNTER 2024-01-21 15:24 | Emergency (ER) | payer OTHER ==
[2024-01-21] MEDS ORDERED: HALOPERIDOL LACTATE 5 MG/ML 1 ML VIAL ONE (16:21)
[2024-01-21] MEDS ORDERED: PANTOPRAZOLE 40 MG/10 ML VIAL ONE (16:21)
[2024-01-21] MEDS ORDERED: FAMOTIDINE 20 MG/2 ML VIAL ONE (16:22)
[2024-01-21] MEDS ORDERED: LIDOCAINE VISCOUS 2% 15 ML CUP ONE (17:53)
[2024-01-21] MEDS ORDERED: HYOSCYAMINE ELIXIR 250 MCG/10 ML BTL ONE (17:53)
[2024-01-21] MEDS ORDERED: MAG HYDROX/AL HYDROX/SIMETH 30 ML CUP ONE (17:53)
[2024-01-21] MEDS ORDERED: SODIUM CHLORIDE 0.9% 1,000 ML BAG ONE (18:00)
== END 2024-01-21 21:30 | disposition home or self-care (01) ==
LOC: EC 15:24
DX: K29.70 Gastritis, unspecified, without bleeding (principal); F17.200 Nicotine dependence, unspecified, uncomplicated; Z88.0 Allergy status to penicillin
CPT/HCPCS: 99283; 96374; 96375 ×2; J1630; J3490; J2470; 99284

== ENCOUNTER 2024-01-25 11:03 | Emergency (ER) | payer OTHER ==
[2024-01-25] MEDS ORDERED: SODIUM CHLORIDE 0.9% 1,000 ML BAG ONE (11:38)
[2024-01-25] MEDS ORDERED: METOCLOPRAMIDE 5 MG/ML 2 ML VIAL ONE (11:42)
[2024-01-25] MEDS ORDERED: PANTOPRAZOLE 40 MG/10 ML VIAL ONE (11:43)
== END 2024-01-25 13:35 | disposition home or self-care (01) ==
LOC: EC 11:03
DX: R11.2 Nausea with vomiting, unspecified (principal)
CPT/HCPCS: 99284

== ENCOUNTER 2024-03-28 02:11 | Emergency (ER) | payer OTHER ==
[2024-03-28 02:17] VITALS: TEMP 97.9
[2024-03-28 02:20] LABS: Glucose,Whole Blood 103 mg/dL (70-110)
--- NOTE | 2024-03-28 02:21 | ED ---
Nausea/Vomiting/Diarrhea HPI - General Chief complaint: Nausea/Vomiting/Diarrhea Stated complaint: NVD Time Seen by Provider: 03/28/24 02:21 Source: patient, EMS, RN notes reviewed Mode of arrival: EMS - History of Present Illness Initial comments: 28-year-old female with a history of hiatal hernia presents emergency department via EMS for chief complaint of nausea and vomiting over the past approximately 4 days. Patient states that she does have a history of recurrent cyclical vomiting and has been out of her omeprazole and Pepcid and is not aware of how to receive more of these medications. States that her last episode of emesis was approximately an hour before arrival to emergency department. She denies abdominal pain however endorses burning in her chest due to multiple episodes of emesis. denies hememesis or coffee ground emesis. denies fevers, chills, rhinorrhea, cough, chest pain, urinary or bowel symptoms. endorses marajuana use with most recent this morning. - Related Data Home Medications Medication Instructions Recorded Confirmed Omeprazole 40 mg PO DAILY 11/13/21 03/17/22 Naltrexone Microspheres [Vivitrol] 380 mg IM DIRECTED 03/16/22 03/17/22 QUEtiapine FUMARATE [SEROquel] 25 mg PO HS 03/16/22 03/17/22 Venlafaxine HCl ER [Effexor Xr] 75 mg PO DAILY 03/16/22 03/17/22 cloNIDine HCL [Catapres] 0.1 mg PO BID 03/16/22 03/17/22 haloperidoL [Haldol] 2 mg PO TID PRN 03/16/22 03/17/22 Previous Rx's Medication Instructions Recorded Metoclopramide [Reglan] 10 mg PO Q6H PRN #20 tab 03/05/22 Ondansetron Odt [Zofran Odt] 4 mg PO Q8HR PRN #10 tab 03/17/22 Metoclopramide HCl [Reglan] 10 mg PO Q6H PRN #20 tab 08/22/22 Famotidine [Pepcid] 20 mg PO BID #60 tablet 03/28/24 Omeprazole [PriLOSEC] 40 mg PO DAILY #30 cap 03/28/24 Sulfamethox-Tmp 800-160Mg [Bactrim 1 each PO Q12HR #19 tab 03/28/24 Ds] Allergies Allergy/AdvReac Type Severity Reaction Status Date / Time amoxicillin Allergy Rash/Hives Verified 03/28/24 02:17 Review of Systems ROS Statement: Those systems with pertinent positive or pertinent negative responses have been documented in the HPI. ROS Other: All systems not noted in ROS Statement are negative. Past Medical History Past Medical History: GERD/Reflux Additional Past Medical History / Comment(s): GERD, UTI History of Any Multi-Drug Resistant Organisms: None Reported Past Surgical History: Cholecystectomy Additional Past Surgical History / Comment(s): Cholecystectomy w/ ERCP on October. MRCP October 23, 2019. Ureteral stent placed for obstruction. Past Anesthesia/Blood Transfusion Reactions: No Reported Reaction Past Psychological History: Anxiety, Depression, PTSD Smoking Status: Current some day smoker, Vaper Past Alcohol Use History: None Reported Past Drug Use History: Marijuana - Past Family History Mother Family Medical History: Hypertension General Exam General appearance: alert, in no apparent distress Eye exam: Present: normal appearance, PERRL, EOMI. Absent: scleral icterus, conjunctival injection, periorbital swelling ENT exam: Present: normal exam, mucous membranes moist Respiratory exam: Present: normal lung sounds bilaterally. Absent: respiratory distress, wheezes, rales, rhonchi, stridor Cardiovascular Exam: Present: regular rate, normal rhythm, normal heart sounds. Absent: systolic murmur, diastolic murmur, rubs, gallop, clicks GI/Abdominal exam: Present: soft, normal bowel sounds. Absent: distended, tenderness, guarding, rebound, rigid Extremities exam: Present: normal inspection, full ROM, normal capillary refill. Absent: tenderness, pedal edema, joint swelling, calf tenderness Back exam: Present: normal inspection Skin exam: Present: warm, dry, intact, normal color. Absent: rash Course Vital Signs 03/28/24 03/28/24 02:12 03:23 Temperature 97.9 F Pulse Rate 89 86 Respiratory 15 15 Rate Blood Pressure 138/92 127/79 O2 Sat by Pulse 98 99 Oximetry Medical Decision Making - Medical Decision Making Was pt. sent in by a medical professional or institution (, PA, [employer], urgent care, hospital, or assisted...) When possible be specific @ -No Did you speak to anyone other than the patient for history (EMS, parent, family, police, friend...)? What history was obtained from this source @ -No Did you review nursing and triage notes (agree or disagree)? Why? @ -I reviewed and agree with nursing and triage notes Were old charts reviewed (outside hosp., previous admission, EMS record, old EKG, old radiological studies, urgent care reports/EKG's, assisted records)? Report findings @ -No old charts were reviewed Differential Diagnosis (chest pain, altered mental status, abdominal pain women, abdominal pain men, vaginal bleeding, weakness, fever, dyspnea, syncope, headache, dizziness, GI bleed, back pain, seizure, CVA, palpatations, mental health, musculoskeletal)? @ -Differential Abdominal Pain Women: Appendicitis, Cholecystitis, diverticulosis, ischemic bowel, pancreatitis, hepatitis, UTI, gastroenteritis, AAA, incarcerated hernia, bowel obstruction, constipation, inflammatory bowel, hepatitis, peptic ulcer disease, splenic infarction, perforated viscus, vulvitis, ovarian torsion, PID, kidney stone, placenta abruption, this is not meant to be an all-inclusive list EKG interpreted by me (3pts min.). @ -None X-rays interpreted by me (1pt min.). @ -None done CT interpreted by me (1pt min.). @ -None done U/S interpreted by me (1pt. min.). @ -None done What testing was considered but not performed or refused? (CT, X-rays, U/S, labs)? Why? @ -None What meds were considered but not given or refused? Why? @ -None Did you discuss the management of the patient with other professionals (professionals i.e. , PA, [employer], lab, RT, psych nurse, social media intern, mixer helper, teacher, training officer, renal case manager)? Give summary @ -No Was smoking cessation discussed for >3mins.? @ -No Was critical care preformed (if so, how long)? @ -No Were there social determinants of health that impacted care today? How? (Homelessness, low income, unemployed, alcoholism, drug addiction, t ransportation, low edu. Level, literacy, decrease access to med. care, penitentiary, rehab)? @ -No Was there de-escalation of care discussed even if they declined (Discuss DNR or withdrawal of care, Hospice)? DNR status @ -No What co-morbidities impacted this encounter? (DM, HTN, Smoking, COPD, CAD, Cancer, CVA, ARF, Chemo, Hep., AIDS, mental health diagnosis, sleep apnea, morbid obesity)? @ -None Was patient admitted / discharged? Hospital course, mention meds given and route, prescriptions, significant lab abnormalities, going to OR and other pertinent info. @ -28-year-old female with nausea and vomiting. Patient presents via EMS My evaluation of the patient she is resting comfortably no signs acute distress. Patient's vitals are stable. There is no abdominal pain on examination and equal bowel sounds are auscultated throughout all quadrants. Patient is provided with 2 L fluid bolus and Reglan pending laboratory studies. On reevaluation patient states that she is feeling better after medication administration. Leukocytosis 12.8 and left shift neutrophils 10.6 likely reactive secondary to episodes of emesis. CMP grossly unremarkable, amylase and lipase within normal limits, patient is negative for COVID, flu, RSV. urine hcg negative, UA remarkable for infection with positive nitrates, large leukocyte esterase, 150 white blood cells. Patient provided with initial dose of oral Bactrim the emergency department sent full course to the pharmacy. Additionally, patient's urinalysis will be sent for urine culture. Additionally, patient states that she is out of her prescription for omeprazole and Pepcid and she sent a prescription for these medications to her pharmacy. All questions answered at bedside and strict return parameters discussed with the patient she is verbalized understanding. Discussed with Dr. Bull Undiagnosed new problem with uncertain prognosis? @ -No Drug Therapy requiring intensive monitoring for toxicity (Heparin, Nitro, I nsulin, Cardizem)? @ -No Were any procedures done? @ -No Diagnosis/symptom? @ -nasuea and Vomiting, urinary tract infection Acute, or Chronic, or Acute on Chronic? @ -Acute Uncomplicated (without systemic symptoms) or Complicated (systemic symptoms)? @ -uncomplicated Side effects of treatment? @ -No Exacerbation, Progression, or Severe Exacerbation? @ -No Poses a threat to life or bodily function? How? (Chest pain, [place], [place], pneumonia, PE, COPD, DKA, ARF, appy, cholecystitis, CVA, Diverticulitis, Homicidal, Suicidal, threat to staff... and all critical care pts) @ -No - Lab Data Result diagrams: 03/28/24 02:29 03/28/24 02:29 Lab Results 03/28/24 03/28/24 03/28/24 Range/Units 02:17 02:29 02:29 WBC 12.8 H (3.8-10.6) k/uL RBC 4.87 (3.80-5.40) m/uL Hgb 14.9 (11.4-16.0) gm/dL Hct 46.4 H (34.0-46.0) % MCV 95.3 (80.0-100.0) fL MCH 30.5 (25.0-35.0) pg MCHC 32.0 (31.0-37.0) g/dL RDW 14.1 (11.5-15.5) % Plt Count 323 (150-450) k/uL MPV 7.7 Neutrophils % 82 % Lymphocytes % 10 % Monocytes % 5 % Eosinophils % 1 % Basophils % 0 % Neutrophils # 10.6 H (1.3-7.7) k/uL Lymphocytes # 1.3 (1.0-4.8) k/uL Monocytes # 0.7 (0-1.0) k/uL Eosinophils # 0.1 (0-0.7) k/uL Basophils # 0.0 (0-0.2) k/uL Sodium 139 (137-145) mmol/L Potassium 3.6 (3.5-5.1) mmol/L Chloride 107 (98-107) mmol/L Carbon Dioxide 20 L (22-30) mmol/L Anion Gap 12 mmol/L BUN 5 L (7-17) mg/dL Creatinine 0.60 (0.52-1.04) mg/dL Est GFR (CKD-EPI)AfAm >90 (>60 ml/min/1.73 sqM) Est GFR (CKD-EPI)NonAf >90 (>60 ml/min/1.73 sqM) Glucose 104 H (74-99) mg/dL POC Glucose (mg/dL) 103 (70-110) mg/dL POC Glu Central Processing Technician ID Dmitri Wu Plasma Lactic Acid Luis (0.7-2.0) mmol/L Calcium 10.4 H (8.4-10.2) mg/dL Total Bilirubin 1.0 (0.2-1.3) mg/dL AST 27 (14-36) U/L ALT 21 (4-34) U/L Alkaline Phosphatase 87 (38-126) U/L Total Protein 8.2 (6.3-8.2) g/dL Albumin 4.9 (3.5-5.0) g/dL Amylase 104 (30-110) U/L Lipase 58 (23-300) U/L Urine Color Urine Appearance (Clear) Urine pH (5.0-8.0) Ur Specific [place] (1.001-1.035) Urine Protein (Negative) Urine Glucose (UA) (Negative) Urine Ketones (Negative) Urine Blood (Negative) Urine Nitrite (Negative) Urine Bilirubin (Negative) Urine Urobilinogen (<2.0) mg/dL Ur Leukocyte Esterase (Negative) Urine RBC (0-5) /hpf Urine WBC (0-5) /hpf Ur Squamous Epith Cells (0-4) /hpf Urine Bacteria (None) /hpf Hyaline Casts (0-2) /lpf Urine Mucus (None) /hpf Urine HCG, Qual (Not Detectd) Influenza Type A (PCR) (Not Detectd) Influenza Type B (PCR) (Not Detectd) RSV (PCR) (Not Detectd) SARS-CoV-2 (PCR) (Not Detectd) 03/28/24 03/28/24 03/28/24 Range/Units 02:29 02:29 03:10 WBC (3.8-10.6) k/uL RBC (3.80-5.40) m/uL Hgb (11.4-16.0) gm/dL Hct (34.0-46.0) % MCV (80.0-100.0) fL MCH (25.0-35.0) pg MCHC (31.0-37.0) g/dL RDW (11.5-15.5) % Plt Count (150-450) k/uL MPV Neutrophils % % Lymphocytes % % Monocytes % % Eosinophils % % Basophils % % Neutrophils # (1.3-7.7) k/uL Lymphocytes # (1.0-4.8) k/uL Monocytes # (0-1.0) k/uL Eosinophils # (0-0.7) k/uL Basophils # (0-0.2) k/uL Sodium (137-145) mmol/L Potassium (3.5-5.1) mmol/L Chloride (98-107) mmol/L Carbon Dioxide (22-30) mmol/L Anion Gap mmol/L BUN (7-17) mg/dL Creatinine (0.52-1.04) mg/dL Est GFR (CKD-EPI)AfAm (>60 ml/min/1.73 sqM) Est GFR (CKD-EPI)NonAf (>60 ml/min/1.73 sqM) Glucose (74-99) mg/dL POC Glucose (mg/dL) (70-110) mg/dL POC Glu Central Processing Technician ID Plasma Lactic Acid Luis 1.2 (0.7-2.0) mmol/L Calcium (8.4-10.2) mg/dL Total Bilirubin (0.2-1.3) mg/dL AST (14-36) U/L ALT (4-34) U/L Alkaline Phosphatase (38-126) U/L Total Protein (6.3-8.2) g/dL Albumin (3.5-5.0) g/dL Amylase (30-110) U/L Lipase (23-300) U/L Urine Color Yellow Urine Appearance Cloudy H (Clear) Urine pH 6.0 (5.0-8.0) Ur Specific [place] 1.029 (1.001-1.035) Urine Protein 2+ H (Negative) Urine Glucose (UA) Negative (Negative) Urine Ketones 4+ H (Negative) Urine Blood Moderate H (Negative) Urine Nitrite Positive H (Negative) Urine Bilirubin Negative (Negative) Urine Urobilinogen 2.0 (<2.0) mg/dL Ur Leukocyte Esterase Large H (Negative) Urine RBC 11 H (0-5) /hpf Urine WBC 150 H (0-5) /hpf Ur Squamous Epith Cells 6 H (0-4) /hpf Urine Bacteria Many H (None) /hpf Hyaline Casts 6 H (0-2) /lpf Urine Mucus Many H (None) /hpf Urine HCG, Qual (Not Detectd) Influenza Type A (PCR) Not Detected (Not Detectd) Influenza Type B (PCR) Not Detected (Not Detectd) RSV (PCR) Not Detected (Not Detectd) SARS-CoV-2 (PCR) Not Detected (Not Detectd) 03/28/24 Range/Units 03:10 WBC (3.8-10.6) k/uL RBC (3.80-5.40) m/uL Hgb (11.4-16.0) gm/dL Hct (34.0-46.0) % MCV (80.0-100.0) fL MCH (25.0-35.0) pg MCHC (31.0-37.0) g/dL RDW (11.5-15.5) % Plt Count (150-450) k/uL MPV Neutrophils % % Lymphocytes % % Monocytes % % Eosinophils % % Basophils % % Neutrophils # (1.3-7.7) k/uL Lymphocytes # (1.0-4.8) k/uL Monocytes # (0-1.0) k/uL Eosinophils # (0-0.7) k/uL Basophils # (0-0.2) k/uL Sodium (137-145) mmol/L Potassium (3.5-5.1) mmol/L Chloride (98-107) mmol/L Carbon Dioxide (22-30) mmol/L Anion Gap mmol/L BUN (7-17) mg/dL Creatinine (0.52-1.04) mg/dL Est GFR (CKD-EPI)AfAm (>60 ml/min/1.73 sqM) Est GFR (CKD-EPI)NonAf (>60 ml/min/1.73 sqM) Glucose (74-99) mg/dL POC Glucose (mg/dL) (70-110) mg/dL POC Glu Central Processing Technician ID Plasma Lactic Acid Luis (0.7-2.0) mmol/L Calcium (8.4-10.2) mg/dL Total Bilirubin (0.2-1.3) mg/dL AST (14-36) U/L ALT (4-34) U/L Alkaline Phosphatase (38-126) U/L Total Protein (6.3-8.2) g/dL Albumin (3.5-5.0) g/dL Amylase (30-110) U/L Lipase (23-300) U/L Urine Color Urine Appearance (Clear) Urine pH (5.0-8.0) Ur Specific [place] (1.001-1.035) Urine Protein (Negative) Urine Glucose (UA) (Negative) Urine Ketones (Negative) Urine Blood (Negative) Urine Nitrite (Negative) Urine Bilirubin (Negative) Urine Urobilinogen (<2.0) mg/dL Ur Leukocyte Esterase (Negative) Urine RBC (0-5) /hpf Urine WBC (0-5) /hpf Ur Squamous Epith Cells (0-4) /hpf Urine Bacteria (None) /hpf Hyaline Casts (0-2) /lpf Urine Mucus (None) /hpf Urine HCG, Qual Not Detected (Not Detectd) Influenza Type A (PCR) (Not Detectd) Influenza Type B (PCR) (Not Detectd) RSV (PCR) (Not Detectd) SARS-CoV-2 (PCR) (Not Detectd) Disposition Clinical Impression: Nausea and vomiting, Urinary tract infection Disposition: HOME SELF-CARE Condition: Stable Instructions (If sedation given, give patient instructions): Urinary Tract Infection in Women (DC) Additional Instructions: Please return to the Emergency Department if symptoms worsen or any other concerns. Complete full course of antibiotics as prescribed for urinary tract infection. Prescriptions: Sulfamethox-Tmp 800-160Mg [Bactrim Ds] 1 each PO Q12HR #19 tab Famotidine [Pepcid] 20 mg PO BID #60 tablet Omeprazole [PriLOSEC] 40 mg PO DAILY #30 cap Is patient prescribed a controlled substance at d/c from ED?: No Referrals: Andrey Humphries MD [Primary Care Provider] - 1-2 days Time of Disposition: 03:47
[2024-03-28] MEDS: ONDANSETRON 4 MG/2 ML VIAL IVP STA (02:27)
[2024-03-28] MEDS: SODIUM CHLORIDE 0.9% 2,000 ML IV STA (02:28)
[2024-03-28] MEDS: PANTOPRAZOLE 40 MG/10 ML VIAL IVP STA (02:32)
[2024-03-28] MEDS: METOCLOPRAMIDE 5 MG/ML 2 ML VIAL IVP STA (02:34)
[2024-03-28 02:37] LABS: Basophils % (A) 0 %; Eosinophils # (A) 0.1 k/uL (0-0.7); Eosinophils % (A) 1 %; HCT 46.4 % (34.0-46.0); HGB 14.9 gm/dL (11.4-16.0); Lymphocytes # (A) 1.3 k/uL (1.0-4.8); Lymphocytes % (A) 10 %; MCH 30.5 pg (25.0-35.0); MCV 95.3 fL (80.0-100.0); Mean Platelet Volume 7.7; Monocytes # (A) 0.7 k/uL (0-1.0); Monocytes % (A) 5 %; Neutrophils # (A) 10.6 k/uL (1.3-7.7); Neutrophils % (A) 82 %; Platelet Count 323 k/uL (150-450); RBC 4.87 m/uL (3.80-5.40); RDW 14.1 % (11.5-15.5); WBC 12.8 k/uL (3.8-10.6)
[2024-03-28 02:48] LABS: ALT 21 U/L (4-34); AST 27 U/L (14-36); African American GFR (CKD) >90 (>60 ml/min/1.73 sqM); Albumin 4.9 g/dL (3.5-5.0); Alkaline Phosphatase 87 U/L (38-126); Amylase 104 U/L (30-110); Anion Gap 12 mmol/L; Blood Urea Nitrogen 5 mg/dL (7-17); Calcium 10.4 mg/dL (8.4-10.2); Carbon Dioxide 20 mmol/L (22-30); Chloride 107 mmol/L (98-107); Glucose 104 mg/dL (74-99); Lipase 58 U/L (23-300); Non-African American GFR(CKD) >90 (>60 ml/min/1.73 sqM); Potassium 3.6 mmol/L (3.5-5.1); Sodium 139 mmol/L (137-145); Total Protein 8.2 g/dL (6.3-8.2)
[2024-03-28 03:31] LABS: Appearance,Urine Cloudy (Clear); Bacteria,Urine Many /hpf; Bilirubin,Urine Negative (Negative); Blood,Urine Moderate (Negative); Color,Urine Yellow; Glucose,Urine (UA) Negative (Negative); Hyaline Casts,Urine 6 /lpf (0-2); Ketones,Urine 4+ (Negative); Leukocyte Esterase,Urine Large (Negative); Mucus,Urine Many /hpf; Nitrite,Urine Positive (Negative); Protein,Urine 2+ (Negative); RBC,Urine 11 /hpf (0-5); Specific Gravity,Urine 1.029 (1.001-1.035); Squamous Epithelial Cell,Urine 6 /hpf (0-4); WBC,Urine 150 /hpf (0-5)
[2024-03-28] MEDS: SULFAMETHOX-TMP 800-160MG 1 EACH TAB PO STA (04:23)
[2024-03-28 04:31] VITALS: BP 130/81; PULSE 84; RESP 16
== END 2024-03-28 04:28 | disposition home or self-care (01) ==
LOC: EC 02:11
CPT/HCPCS: 36415; 80053; 81001; 81025; 82150; 83605; 83690; 85025; 87077; 87086; 87186; 87636; 96361; 96374; 96375; 99284

== ENCOUNTER 2024-03-30 23:27 | Emergency (ER) | payer OTHER ==
[2024-03-31 00:50] LABS: Basophils # (A) 0.1 k/uL (0-0.2); Basophils % (A) 0 %; Eosinophils # (A) 0.1 k/uL (0-0.7); Eosinophils % (A) 1 %; HCT 44.9 % (34.0-46.0); HGB 14.9 gm/dL (11.4-16.0); Lymphocytes # (A) 2.6 k/uL (1.0-4.8); Lymphocytes % (A) 23 %; MCH 32.1 pg (25.0-35.0); MCHC 33.1 g/dL (31.0-37.0); MCV 97.2 fL (80.0-100.0); Mean Platelet Volume 7.7; Monocytes # (A) 0.8 k/uL (0-1.0); Monocytes % (A) 7 %; Neutrophils # (A) 7.8 k/uL (1.3-7.7); Neutrophils % (A) 67 %; Platelet Count 287 k/uL (150-450); RBC 4.62 m/uL (3.80-5.40); WBC 11.6 k/uL (3.8-10.6)
[2024-03-31] MEDS: MAG HYDROX/AL HYDROX/SIMETH 30 ML, HYOSCYAMINE ELIXIR 10 ML, LIDOCAINE VISCOUS 2% 10 ML PO STA (01:14)
--- NOTE | 2024-03-31 01:16 | XR ---
EXAMINATION TYPE: XR chest 2V DATE OF EXAM: 03/31/2024 COMPARISON: Prior chest x-ray July 08, 2021 HISTORY: Chest/abdominal pain with nausea and vomiting TECHNIQUE: Frontal and lateral views of the chest are obtained. FINDINGS: There is no suspicious new focal air space opacity, pleural effusion, or pneumothorax seen . The cardiac silhouette size is stable and within normal limits. The osseous structures are intac t. IMPRESSION: No acute cardiopulmonary process. [facility], , 03/31/2024 1:14 AM
[2024-03-31 01:26] LABS: Appearance,Urine Cloudy (Clear); Bacteria,Urine Occasional /hpf; Bilirubin,Urine Negative (Negative); Blood,Urine Small (Negative); Color,Urine Yellow; Glucose,Urine (UA) Negative (Negative); Ketones,Urine 4+ (Negative); Leukocyte Esterase,Urine Negative (Negative); Mucus,Urine Few /hpf; Nitrite,Urine Negative (Negative); Protein,Urine Trace (Negative); RBC,Urine 31 /hpf (0-5); Specific Gravity,Urine 1.022 (1.001-1.035); Squamous Epithelial Cell,Urine 10 /hpf (0-4); WBC,Urine 23 /hpf (0-5)
[2024-03-31] MEDS: KETOROLAC 15 MG/ML 1 ML VIAL IVP STA (03:05)
[2024-03-31 03:11] LABS: ALT 20 U/L (4-34); AST 26 U/L (14-36); African American GFR (CKD) >90 (>60 ml/min/1.73 sqM); Albumin 4.4 g/dL (3.5-5.0); Alkaline Phosphatase 73 U/L (38-126); Amylase 110 U/L (30-110); Anion Gap 12 mmol/L; Blood Urea Nitrogen 5 mg/dL (7-17); C Reactive Protein <0.5 mg/dL (<1.0); Calcium 9.9 mg/dL (8.4-10.2); Carbon Dioxide 14 mmol/L (22-30); Chloride 109 mmol/L (98-107); Glucose 73 mg/dL (74-99); Lipase 130 U/L (23-300); Non-African American GFR(CKD) >90 (>60 ml/min/1.73 sqM); Potassium 3.3 mmol/L (3.5-5.1); Sodium 135 mmol/L (137-145); Total Bilirubin 1.1 mg/dL (0.2-1.3); Total Protein 7.2 g/dL (6.3-8.2)
[2024-03-31] MEDS: HALOPERIDOL LACTATE 5 MG/ML 1 ML VIAL IM STA (03:18)
--- NOTE | 2024-03-31 04:02 | ED ---
Abdominal Pain HPI - General Chief Complaint: Abdominal Pain Stated Complaint: NVD chest pain Time Seen by Provider: 03/31/24 00:29 Source: patient Mode of arrival: ambulatory Limitations: no limitations - History of Present Illness Initial Comments: 28-year-old female presenting with chief complaint of nausea vomiting and abdominal pain. Patient is having epigastric pain which she believes is due to her hiatal hernia. She has been here multiple times recently for the same complaint including 2 days ago. She is a daily marijuana smoker. No hemateme sis, hematochezia, melena. No fevers or chills. No difficulty breathing. She does get some discomfort that radiates up into the chest from the epigastric region. - Related Data Home Medications Medication Instructions Recorded Confirmed Omeprazole 40 mg PO DAILY 11/13/21 03/17/22 Naltrexone Microspheres [Vivitrol] 380 mg IM DIRECTED 03/16/22 03/17/22 QUEtiapine FUMARATE [SEROquel] 25 mg PO HS 03/16/22 03/17/22 Venlafaxine HCl ER [Effexor Xr] 75 mg PO DAILY 03/16/22 03/17/22 cloNIDine HCL [Catapres] 0.1 mg PO BID 03/16/22 03/17/22 haloperidoL [Haldol] 2 mg PO TID PRN 03/16/22 03/17/22 Previous Rx's Medication Instructions Recorded Metoclopramide [Reglan] 10 mg PO Q6H PRN #20 tab 03/05/22 Ondansetron Odt [Zofran Odt] 4 mg PO Q8HR PRN #10 tab 03/17/22 Metoclopramide HCl [Reglan] 10 mg PO Q6H PRN #20 tab 08/22/22 Famotidine [Pepcid] 20 mg PO BID #60 tablet 03/28/24 Omeprazole [PriLOSEC] 40 mg PO DAILY #30 cap 03/28/24 Sulfamethox-Tmp 800-160Mg [Bactrim 1 each PO Q12HR #19 tab 03/28/24 Ds] Allergies Allergy/AdvReac Type Severity Reaction Status Date / Time amoxicillin Allergy Rash/Hives Verified 03/30/24 23:53 Review of Systems ROS Statement: Those systems with pertinent positive or pertinent negative responses have been documented in the HPI. ROS Other: All systems not noted in ROS Statement are negative. Past Medical History Past Medical History: GERD/Reflux Additional Past Medical History / Comment(s): GERD, UTI History of Any Multi-Drug Resistant Organisms: None Reported Past Surgical History: Cholecystectomy Additional Past Surgical History / Comment(s): Cholecystectomy w/ ERCP on October 22, 2019. MRCP October 23, 2019. Ureteral stent placed for obstruction. Past Anesthesia/Blood Transfusion Reactions: No Reported Reaction Past Psychological History: Anxiety, Depression, PTSD Smoking Status: Current some day smoker, Vaper Past Alcohol Use History: None Reported Past Drug Use History: Marijuana - Past Family History Mother Family Medical History: Hypertension General Exam Limitations: no limitations General appearance: alert, in no apparent distress Head exam: Present: atraumatic, normocephalic, normal inspection Eye exam: Present: normal appearance, EOMI Neck exam: Present: normal inspection. Absent: meningismus Respiratory exam: Present: normal lung sounds bilaterally. Absent: respiratory distress, wheezes, rales, rhonchi, stridor Cardiovascular Exam: Present: regular rate, normal rhythm, normal heart sounds. Absent: systolic murmur, diastolic murmur, rubs, gallop, clicks GI/Abdominal exam: Present: soft. Absent: distended, tenderness, guarding, rebound, rigid Neurological exam: Present: alert, oriented X3 Psychiatric exam: Present: normal affect, normal mood Skin exam: Present: warm, dry Course Vital Signs 03/30/24 03/31/24 23:51 04:11 Temperature 98.0 F 97.5 F L Pulse Rate 77 90 Respiratory 20 16 Rate Blood Pressure 151/84 117/73 O2 Sat by Pulse 96 98 Oximetry Medical Decision Making - Medical Decision Making Was pt. sent in by a medical professional or institution (, PA, BINDERY HELPER, urgent care, hospital, or snf...) When possible be specific @ -No Did you speak to anyone other than the patient for history (EMS, parent, family, police, friend...)? What history was obtained from this source @ -No Did you review nursing and triage notes (agree or disagree)? Why? @ -I reviewed and agree with nursing and triage notes Were old charts reviewed (outside hosp., previous admission, EMS record, old EKG, old radiological studies, urgent care reports/EKG's, snf records)? Report findings @ -Patient's most recent visit a few days ago was reviewed Differential Diagnosis (chest pain, altered mental status, abdominal pain women, abdominal pain men, vaginal bleeding, weakness, fever, dyspnea, syncope, headache, dizziness, GI bleed, back pain, seizure, CVA, palpatations, mental health, musculoskeletal)? @ -[facility] Differential Abdominal Pain Women: Appendicitis, Cholecystitis, diverticulosis, ischemic bowel, pancreatitis, hepatitis, UTI, gastroenteritis, AAA, incarcerated hernia, bowel obstruction, constipation, inflammatory bowel, hepatitis, peptic ulcer disease, splenic infarction, perforated viscus, vulvitis, ovarian torsion, PID, kidney stone, placenta abruption... This is not meant to be an all-inclusive list EKG interpreted by me (3pts min.). @ -As above X-rays interpreted by me (1pt min.). @ -Chest x-ray shows no acute process CT interpreted by me (1pt min.). @ -None done U/S interpreted by me (1pt. min.). @ -None done What testing was considered but not performed or refused? (CT, X-rays, U/S, labs)? Why? @ -None What meds were considered but not given or refused? Why? @ -None Did you discuss the management of the patient with other professionals (professionals i.e. , PA, BINDERY HELPER, lab, RT, psych nurse, social service director, economics lecturer, teacher, military source operations officer, case coordinator)? Give summary @ -No Was smoking cessation discussed for >3mins.? @ -No Was critical care preformed (if so, how long)? @ -No Were there social determinants of health that impacted care today? How? (Homelessness, low income, unemployed, alcoholism, drug addiction, transportation, low edu. Level, literacy, decrease access to med. care, intermediate, rehab)? @ -No Was there de-escalation of care discussed even if they declined (Discuss DNR or withdrawal of care, Hospice)? DNR status @ -No What co-morbidities impacted this encounter? (DM, HTN, Smoking, COPD, CAD, Cancer, CVA, ARF, Chemo, Hep., AIDS, mental health diagnosis, sleep apnea, morbid obesity)? @ -None Was patient admitted / discharged? Hospital course, mention meds given and route, prescriptions, significant lab abnormalities, going to OR and other pertinent info. @ -28-year-old female presenting with chief complaint of nausea vomiting and epigastric pain. She has been seen here in the past for similar symptoms. She does have hiatal hernia and history of daily marijuana use. History and physical examination are conducted. WBC 11.6, likely reactive. Sodium 135 patient is receiving IV fluids. Potassium 3.3, patient received 40 mEq K-Dur. Urine shows 4+ ketones, due to dehydration. She does have 31 RBCs and 23 WBCs, this is significantly improved from her visit the other day when she was started on Bactrim. Negative hCG. Chest x-ray shows no acute process. Patient was initially given Toradol and GI cocktail which she reports did not help her symptoms. She reports in the past Haldol has helped her pain and vomiting. Given 5 mg Haldol IM and on reassessment she reports improvement and feels ready for discharge home. Discharged. Follow-up with PCP. Report back to ER with any new or worsening symptoms. Discussed return parameters and answered all questions. Patient conveyed verbal understanding and agreed to the plan. I discussed this case in detail with my attending Dr. Trejo Undiagnosed new problem with uncertain prognosis? @ -No Drug Therapy requiring intensive monitoring for toxicity (Heparin, Nitro, Insulin, Cardizem)? @ -No Were any procedures done? @ -No Diagnosis/symptom? @ -Nausea vomiting Acute, or Chronic, or Acute on Chronic? @ -Acute Uncomplicated (without systemic symptoms) or Complicated (systemic symptoms)? @ -Uncomplicated Side effects of treatment? @ -No Exacerbation, Progression, or Severe Exacerbation? @ -No Poses a threat to life or bodily function? How? (Chest pain, [place], [place], pneumonia, PE, COPD, DKA, ARF, appy, cholecystitis, CVA, Diverticulitis, Homicidal, Suicidal, threat to staff... and all critical care pts) @ -Unlikely - Lab Data Result diagrams: 03/31/24 00:37 03/31/24 02:46 Lab Results 03/31/24 03/31/24 03/31/24 Range/Units 00:37 01:05 01:05 WBC 11.6 H (3.8-10.6) k/uL RBC 4.62 (3.80-5.40) m/uL Hgb 14.9 (11.4-16.0) gm/dL Hct 44.9 (34.0-46.0) % MCV 97.2 (80.0-100.0) fL MCH 32.1 (25.0-35.0) pg MCHC 33.1 (31.0-37.0) g/dL RDW 14.0 (11.5-15.5) % Plt Count 287 (150-450) k/uL MPV 7.7 Neutrophils % 67 % Lymphocytes % 23 % Monocytes % 7 % Eosinophils % 1 % Basophils % 0 % Neutrophils # 7.8 H (1.3-7.7) k/uL Lymphocytes # 2.6 (1.0-4.8) k/uL Monocytes # 0.8 (0-1.0) k/uL Eosinophils # 0.1 (0-0.7) k/uL Basophils # 0.1 (0-0.2) k/uL Sodium (137-145) mmol/L Potassium (3.5-5.1) mmol/L Chloride (98-107) mmol/L Carbon Dioxide (22-30) mmol/L Anion Gap mmol/L BUN (7-17) mg/dL Creatinine (0.52-1.04) mg/dL Est GFR (CKD-EPI)AfAm (>60 ml/min/1.73 sqM) Est GFR (CKD-EPI)NonAf (>60 ml/min/1.73 sqM) Glucose (74-99) mg/dL Calcium (8.4-10.2) mg/dL Total Bilirubin (0.2-1.3) mg/dL AST (14-36) U/L ALT (4-34) U/L Alkaline Phosphatase (38-126) U/L C-Reactive Protein (<1.0) mg/dL Total Protein (6.3-8.2) g/dL Albumin (3.5-5.0) g/dL Amylase (30-110) U/L Lipase (23-300) U/L Urine Color Yellow Urine Appearance Cloudy H (Clear) Urine pH 6.0 (5.0-8.0) Ur Specific Parker 1.022 (1.001-1.035) Urine Protein Trace H (Negative) Urine Glucose (UA) Negative (Negative) Urine Ketones 4+ H (Negative) Urine Blood Small H (Negative) Urine Nitrite Negative (Negative) Urine Bilirubin Negative (Negative) Urine Urobilinogen 2.0 (<2.0) mg/dL Ur Leukocyte Esterase Negative (Negative) Urine RBC 31 H (0-5) /hpf Urine WBC 23 H (0-5) /hpf Ur Squamous Epith Cells 10 H (0-4) /hpf Urine Bacteria Occasional H (None) /hpf Urine Mucus Few H (None) /hpf Urine HCG, Qual Not Detected (Not Detectd) 03/31/24 Range/Units 02:46 WBC (3.8-10.6) k/uL RBC (3.80-5.40) m/uL Hgb (11.4-16.0) gm/dL Hct (34.0-46.0) % MCV (80.0-100.0) fL MCH (25.0-35.0) pg MCHC (31.0-37.0) g/dL RDW (11.5-15.5) % Plt Count (150-450) k/uL MPV Neutrophils % % Lymphocytes % % Monocytes % % Eosinophils % % Basophils % % Neutrophils # (1.3-7.7) k/uL Lymphocytes # (1.0-4.8) k/uL Monocytes # (0-1.0) k/uL Eosinophils # (0-0.7) k/uL Basophils # (0-0.2) k/uL Sodium 135 L (137-145) mmol/L Potassium 3.3 L (3.5-5.1) mmol/L Chloride 109 H (98-107) mmol/L Carbon Dioxide 14 L (22-30) mmol/L Anion Gap 12 mmol/L BUN 5 L (7-17) mg/dL Creatinine 0.62 (0.52-1.04) mg/dL Est GFR (CKD-EPI)AfAm >90 (>60 ml/min/1.73 sqM) Est GFR (CKD-EPI)NonAf >90 (>60 ml/min/1.73 sqM) Glucose 73 L (74-99) mg/dL Calcium 9.9 (8.4-10.2) mg/dL Total Bilirubin 1.1 (0.2-1.3) mg/dL AST 26 (14-36) U/L ALT 20 (4-34) U/L Alkaline Phosphatase 73 (38-126) U/L C-Reactive Protein <0.5 (<1.0) mg/dL Total Protein 7.2 (6.3-8.2) g/dL Albumin 4.4 (3.5-5.0) g/dL Amylase 110 (30-110) U/L Lipase 130 (23-300) U/L Urine Color Urine Appearance (Clear) Urine pH (5.0-8.0) Ur Specific Parker (1.001-1.035) Urine Protein (Negative) Urine Glucose (UA) (Negative) Urine Ketones (Negative) Urine Blood (Negative) Urine Nitrite (Negative) Urine Bilirubin (Negative) Urine Urobilinogen (<2.0) mg/dL Ur Leukocyte Esterase (Negative) Urine RBC (0-5) /hpf Urine WBC (0-5) /hpf Ur Squamous Epith Cells (0-4) /hpf Urine Bacteria (None) /hpf Urine Mucus (None) /hpf Urine HCG, Qual (Not Detectd) Disposition Clinical Impression: Nausea & vomiting Disposition: HOME SELF-CARE Condition: Good Instructions (If sedation given, give patient instructions): Acute Nausea and Vomiting (ED), Abdominal Pain (ED) Additional Instructions: Follow-up with PCP. Report back to ER with any new or worsening symptoms. Continue taking your antibiotics as prescribed Is patient prescribed a controlled substance at d/c from ED?: No Referrals: Andrey Humphries MD [Primary Care Provider] - 1-2 days Time of Disposition: 04:02
[2024-03-31] MEDS: POTASSIUM CHLORIDE ER 20 MEQ TAB.ER PO STA (04:07)
[2024-03-31 04:17] VITALS: BP 117/73; PULSE 90; RESP 16; TEMP 97.5
== END 2024-03-31 04:17 | disposition home or self-care (01) ==
LOC: EC 23:27
CPT/HCPCS: 36415; 71046; 80053; 81001; 81025; 82150; 83690; 85025; 86140; 93005; 96372; 96374; 99284

== ENCOUNTER → 2024-07-17 | Outpatient (CLI) | payer OTHER ==
--- NOTE | 2024-07-17 15:55 | US ---
EXAMINATION TYPE: Transabdominal DATE OF EXAM: 07/17/2024 3:41 PM COMPARISON: NONE CLINICAL INDICATION: Female, 28 years old with history of R52. PAIN, UNSPECIFIED; cramping. Nausea. TECHNIQUE: with grayscale and color Doppler imaging including first trimester . FINDINGS: EXAM MEASUREMENTS: GESTATIONAL AGE / DATING Physician Established: Not yet established Dates by LMP: (6 weeks/3 days) EDC: 03/09/2025 Dates by First Scan: No previous this is first scan Dates by Current Scan for: (6 weeks/0 days) EDC: 03/12/2025 MATERNAL ANATOMY Uterus: 7.5 x 4.8 x 4.2 cm Right Ovary: 3.4 x 1.8 x 2.4 cm Left Ovary: 3.1 x 1.5 x 1.3 cm Post CDS / Adnexa: no free fluid Presence of free fluid: no free lfuid Presence of corpus luteal cyst: right ovary = 1.8 x 1.5 x 1.8 cm Presence of subchorionic bleed: no GESTATION / SURVEY CRL: 0.3 cm (6 weeks/0 days) Gestational Sac morphology: Normal Gestational Sac MSD: Seen, not measured Yolk Sac (normal less than 6mm): 2.5 mm Cardiac Activity/Heart Rate: 111 bpm Rhythm: Normal IUP: Viable IUP Date of LMP: 06/02/2024, Beta HcG (if available): Not available at this time IMPRESSION: Single live intrauterine with calculated ultrasound age of 6 weeks 0 days crown rump length with an estimated date of delivery of 03/12/2025 [facility], , 07/17/2024 3:53 PM
== END | disposition home or self-care (01) ==
LOC: RADUSWWP 15:12
PROVIDERS: ATTEND Family Medicine
DX: R11.0 Nausea (principal); R10.2 Pelvic and perineal pain
CPT/HCPCS: 76801

== ENCOUNTER 2024-08-04 19:28 | Emergency (ER) | payer OTHER ==
--- NOTE | 2024-08-04 20:08 | ED ---
Nausea/Vomiting/Diarrhea HPI - General Chief complaint: Nausea/Vomiting/Diarrhea Stated complaint: vomiting, 9 weeks Time Seen by Provider: 08/04/24 19:45 Source: patient, RN notes reviewed Mode of arrival: ambulatory Limitations: no limitations - History of Present Illness Initial comments: This is a 9-week 28-year-old female presenting with GI symptoms x 3 days. Patient endorses recurring nausea/vomiting/diarrhea without known sick contact or known cause of symptoms. Patient also mentions dizziness with positional change and vaginal irritation. Endorses performing a nondescript vaginal swab last week with negative results. Endorses receiving 1 [facility] with [facility] of intrauterine [facility]. Denies [id number] medication use for current symptoms. Denies fever, chills, hematemesis, hematochezia, significant abdominal pain, dysuria, hematuria, vaginal discharge, vaginal bleeding/spotting. MD complaint: nausea, vomiting, diarrhea Onset/Timin -: days(s) Description of Vomiting: food contents Description of Diarrhea: water Associated Symptoms: other (Orthostasis) - Related Data Home Medications Medication Instructions Recorded Confirmed Omeprazole 40 mg PO DAILY 11/13/21 03/17/22 Naltrexone Microspheres [Vivitrol] 380 mg IM DIRECTED 03/16/22 03/17/22 QUEtiapine FUMARATE [SEROquel] 25 mg PO HS 03/16/22 03/17/22 Venlafaxine HCl ER [Effexor Xr] 75 mg PO DAILY 03/16/22 03/17/22 cloNIDine HCL [Catapres] 0.1 mg PO BID 03/16/22 03/17/22 haloperidoL [Haldol] 2 mg PO TID PRN 03/16/22 03/17/22 Previous Rx's Medication Instructions Recorded Metoclopramide [Reglan] 10 mg PO Q6H PRN #20 tab 03/05/22 Ondansetron Odt [Zofran Odt] 4 mg PO Q8HR PRN #10 tab 03/17/22 Metoclopramide HCl [Reglan] 10 mg PO Q6H PRN #20 tab 08/22/22 Famotidine [Pepcid] 20 mg PO BID #60 tablet 03/28/24 Omeprazole [PriLOSEC] 40 mg PO DAILY #30 cap 03/28/24 Sulfamethox-Tmp 800-160Mg [Bactrim 1 each PO Q12HR #19 tab 03/28/24 Ds] Metoclopramide [Reglan] 10 mg PO TID PRN #15 tab 08/04/24 Allergies Allergy/AdvReac Type Severity Reaction Status Date / Time amoxicillin Allergy Rash/Hives Verified 08/04/24 19:31 Review of Systems ROS Statement: Those systems with pertinent positive or pertinent negative responses have been documented in the HPI. ROS Other: All systems not noted in ROS Statement are negative. Past Medical History Past Medical History: GERD/Reflux Additional Past Medical History / Comment(s): GERD, UTI History of Any Multi-Drug Resistant Organisms: None Reported Past Surgical History: Cholecystectomy Additional Past Surgical History / Comment(s): Cholecystectomy w/ ERCP on October 22, 2019. MRCP October 23, 2019. Ureteral stent placed for obstruction. Past Anesthesia/Blood Transfusion Reactions: No Reported Reaction Past Psychological History: Anxiety, Depression, PTSD Smoking Status: Never smoker Past Alcohol Use History: None Reported Past Drug Use History: None Reported - Past Family History Mother Family Medical History: Hypertension General Exam Limitations: no limitations General appearance: alert, in no apparent distress Head exam: Present: atraumatic, normocephalic, normal inspection Eye exam: Present: normal appearance, PERRL, EOMI. Absent: scleral icterus, conjunctival injection, periorbital swelling ENT exam: Present: normal exam, mucous membranes moist Neck exam: Present: normal inspection. Absent: tenderness, meningismus, lymphadenopathy Respiratory exam: Present: normal lung sounds bilaterally. Absent: respiratory distress, wheezes, rales, rhonchi, stridor Cardiovascular Exam: Present: regular rate, normal rhythm, normal heart sounds. Absent: systolic murmur, diastolic murmur, rubs, gallop, clicks GI/Abdominal exam: Present: soft, tenderness (Positive right hypogastric point tenderness without guarding), normal bowel sounds. Absent: distended, guarding, rebound, rigid Extremities exam: Present: normal inspection, full ROM, normal capillary refill. Absent: tenderness, pedal edema, joint swelling, calf tenderness Back exam: Present: normal inspection Neurological exam: Present: alert, oriented X3, CN II-XII intact Psychiatric exam: Present: normal affect, normal mood Skin exam: Present: warm, dry, intact, normal color. Absent: rash Course Vital Signs 08/04/24 19:31 Temperature 97.9 F Pulse Rate 88 Respiratory 16 Rate Blood Pressure 118/77 O2 Sat by Pulse 99 Oximetry Medical Decision Making - Medical Decision Making Was pt. sent in by a medical professional or institution (, [employer], SUBSTITUTE CROSSING GUARD, urgent care, hospital, or shelter...) When possible be specific @ -No Did you speak to anyone other than the patient for history (EMS, parent, family, police, friend...)? What history was obtained from this source @ -No Did you review nursing and triage notes (agree or disagree)? Why? @ -I reviewed and agree with nursing and triage notes Were old charts reviewed (outside hosp., previous admission, EMS record, old EKG, old radiological studies, urgent care reports/EKG's, shelter records)? Report findings @ -No old charts were reviewed Differential Diagnosis (chest pain, altered mental status, abdominal pain women, abdominal pain men, vaginal bleeding, weakness, fever, dyspnea, syncope, headache, dizziness, GI bleed, back pain, seizure, CVA, palpatations, mental health, musculoskeletal)? @ -Differential Abdominal Pain Women: Appendicitis, Cholecystitis, diverticulosis, ischemic bowel, pancreatitis, hepatitis, UTI, gastroenteritis, AAA, incarcerated hernia, bowel obstruction, constipation, inflammatory bowel, hepatitis, peptic ulcer disease, splenic infarction, perforated viscus, vulvitis, ovarian torsion, PID, kidney stone, pl acenta abruption, this is not meant to be an all-inclusive list EKG interpreted by me (3pts min.). @ -Not done X-rays interpreted by me (1pt min.). @ -None done CT interpreted by me (1pt min.). @ -None done U/S interpreted by me (1pt. min.). @ -None done What testing was considered but not performed or refused? (CT, X-rays, U/S, labs)? Why? @ -None What meds were considered but not given or refused? Why? @ -None Did you discuss the management of the patient with other professionals (professionals i.e. , [employer], SUBSTITUTE CROSSING GUARD, lab, RT, psych nurse, oncology social worker, marine engineer cpvec, teacher, radio electronics officer, case consultant)? Give summary @ -No Was smoking cessation discussed for >3mins.? @ -No Was critical care preformed (if so, how long)? @ -No Were there social determinants of health that impacted care today? How? (Homelessness, low income, unemployed, alcoholism, drug addiction, transportation, low edu. Level, literacy, decrease access to med. care, fci, rehab)? @ -No Was there de-escalation of care discussed even if they declined (Discuss DNR or withdrawal of care, Hospice)? DNR status @ -No What co-morbidities impacted this encounter? (DM, HTN, Smoking, COPD, CAD, Cancer, CVA, ARF, Chemo, Hep., AIDS, mental health diagnosis, sleep apnea, morbid obesity)? @ -None Was patient admitted / discharged? Hospital course, mention meds given and route, prescriptions, significant lab abnormalities, going to OR and other pertinent info. @ -Lab work shows indications of dehydration with anion gap 15. UA shows ketonuria with no indication of UTI. Strep test negative. Patient initially provided IV normal saline and Reglan. Additional normal saline, IV Zofran, B6, Benadryl ordered and provided prior to discharge. Advised follow-up with [facility] and PCP regarding ongoing symptoms. Advised increase oral rehydration, brat diet, Unisom/B6 for nausea as well as bonita yanet/tea. Discussed patient with Dr. Asif. Undiagnosed new problem with uncertain prognosis? @ -No Drug Therapy requiring intensive monitoring for toxicity (Heparin, Nitro, Insulin, Cardizem)? @ -No Were any procedures done? @ -No Diagnosis/symptom? @ -Gastroenteritis, dehydration Acute, or Chronic, or Acute on Chronic? @ -Acute Uncomplicated (without systemic symptoms) or Complicated (systemic symptoms)? @ -Uncomplicated Side effects of treatment? @ -No Exacerbation, Progression, or Severe Exacerbation? @ -No Poses a threat to life or bodily function? How? (Chest pain, [place], [place], pneumonia, PE, COPD, DKA, ARF, appy, cholecystitis, CVA, Diverticulitis, Homicidal, Suicidal, threat to staff... and all critical care pts) @ -No - Lab Data Result diagrams: 08/04/24 19:45 08/04/24 19:45 Lab Results 08/04/24 08/04/24 08/04/24 Range/Units 19:45 19:45 20:05 WBC 12.5 H (3.8-10.6) k/uL RBC 4.62 (3.80-5.40) m/uL Hgb 14.5 (11.4-16.0) gm/dL Hct 42.5 (34.0-46.0) % MCV 92.0 (80.0-100.0) fL MCH 31.3 (25.0-35.0) pg MCHC 34.0 (31.0-37.0) g/dL RDW 13.6 (11.5-15.5) % Plt Count 308 (150-450) k/uL MPV 7.6 Neutrophils % 79 % Lymphocytes % 14 % Monocytes % 5 % Eosinophils % 1 % Basophils % 0 % Neutrophils # 9.8 H (1.3-7.7) k/uL Lymphocytes # 1.8 (1.0-4.8) k/uL Monocytes # 0.6 (0-1.0) k/uL Eosinophils # 0.1 (0-0.7) k/uL Basophils # 0.0 (0-0.2) k/uL Sodium 134 L (137-145) mmol/L Potassium 3.8 (3.5-5.1) mmol/L Chloride 101 (98-107) mmol/L Carbon Dioxide 18 L (22-30) mmol/L Anion Gap 15 mmol/L BUN 8 (7-17) mg/dL Creatinine 0.48 L (0.52-1.04) mg/dL Est GFR (CKD-EPI)AfAm >90 (>60 ml/min/1.73 sqM) Est GFR (CKD-EPI)NonAf >90 (>60 ml/min/1.73 sqM) Glucose 82 (74-99) mg/dL Calcium 10.6 H (8.4-10.2) mg/dL Total Bilirubin 1.1 (0.2-1.3) mg/dL AST 27 (14-36) U/L ALT 24 (4-34) U/L Alkaline Phosphatase 54 (38-126) U/L Total Protein 8.0 (6.3-8.2) g/dL Albumin 4.7 (3.5-5.0) g/dL Urine Color Yellow Urine Appearance Cloudy H (Clear) Urine pH 6.0 (5.0-8.0) Ur Specific [place] 1.027 (1.001-1.035) Urine Protein 1+ H (Negative) Urine Glucose (UA) Negative (Negative) Urine Ketones 4+ H (Negative) Urine Blood Negative (Negative) Urine Nitrite Negative (Negative) Urine Bilirubin Negative (Negative) Urine Urobilinogen <2.0 (<2.0) mg/dL Ur Leukocyte Esterase Negative (Negative) Urine RBC 7 H (0-5) /hpf Urine WBC 8 H (0-5) /hpf Ur Squamous Epith Cells 15 H (0-4) /hpf Amorphous Sediment Moderate H (None) /hpf Urine Mucus Many H (None) /hpf Influenza Type A (PCR) (Not Detectd) Influenza Type B (PCR) (Not Detectd) RSV (PCR) (Not Detectd) SARS-CoV-2 (PCR) (Not Detectd) 08/04/24 Range/Units 20:05 WBC (3.8-10.6) k/uL RBC (3.80-5.40) m/uL Hgb (11.4-16.0) gm/dL Hct (34.0-46.0) % MCV (80.0-100.0) fL MCH (25.0-35.0) pg MCHC (31.0-37.0) g/dL RDW (11.5-15.5) % Plt Count (150-450) k/uL MPV Neutrophils % % Lymphocytes % % Monocytes % % Eosinophils % % Basophils % % Neutrophils # (1.3-7.7) k/uL Lymphocytes # (1.0-4.8) k/uL Monocytes # (0-1.0) k/uL Eosinophils # (0-0.7) k/uL Basophils # (0-0.2) k/uL Sodium (137-145) mmol/L Potassium (3.5-5.1) mmol/L Chloride (98-107) mmol/L Carbon Dioxide (22-30) mmol/L Anion Gap mmol/L BUN (7-17) mg/dL Creatinine (0.52-1.04) mg/dL Est GFR (CKD-EPI)AfAm (>60 ml/min/1.73 sqM) Est GFR (CKD-EPI)NonAf (>60 ml/min/1.73 sqM) Glucose (74-99) mg/dL Calcium (8.4-10.2) mg/dL Total Bilirubin (0.2-1.3) mg/dL AST (14-36) U/L ALT (4-34) U/L Alkaline Phosphatase (38-126) U/L Total Protein (6.3-8.2) g/dL Albumin (3.5-5.0) g/dL Urine Color Urine Appearance (Clear) Urine pH (5.0-8.0) Ur Specific [place] (1.001-1.035) Urine Protein (Negative) Urine Glucose (UA) (Negative) Urine Ketones (Negative) Urine Blood (Negative) Urine Nitrite (Negative) Urine Bilirubin (Negative) Urine Urobilinogen (<2.0) mg/dL Ur Leukocyte Esterase (Negative) Urine RBC (0-5) /hpf Urine WBC (0-5) /hpf Ur Squamous Epith Cells (0-4) /hpf Amorphous Sediment (None) /hpf Urine Mucus (None) /hpf Influenza Type A (PCR) Not Detected (Not Detectd) Influenza Type B (PCR) Not Detected (Not Detectd) RSV (PCR) Not Detected (Not Detectd) SARS-CoV-2 (PCR) Not Detected (Not Detectd) Disposition Clinical Impression: Gastroenteritis, Dehydration Disposition: HOME SELF-CARE Condition: Good Instructions (If sedation given, give patient instructions): Acute Nausea and Vomiting (ED), Acute Diarrhea (ED) Additional Instructions: Follow-up with [employer] INSPECTOR and PCP regarding ongoing symptoms. Prescriptions: Metoclopramide [Reglan] 10 mg PO TID PRN #15 tab PRN Reason: Nausea Is patient prescribed a controlled substance at d/c from ED?: No Referrals: Andrey Humphries MD [Primary Care Provider] - 1-2 days Time of Disposition: 21:19
[2024-08-04 20:11] LABS: Basophils % (A) 0 %; Eosinophils # (A) 0.1 k/uL (0-0.7); Eosinophils % (A) 1 %; HCT 42.5 % (34.0-46.0); HGB 14.5 gm/dL (11.4-16.0); Lymphocytes # (A) 1.8 k/uL (1.0-4.8); Lymphocytes % (A) 14 %; MCH 31.3 pg (25.0-35.0); Mean Platelet Volume 7.6; Monocytes # (A) 0.6 k/uL (0-1.0); Monocytes % (A) 5 %; Neutrophils # (A) 9.8 k/uL (1.3-7.7); Neutrophils % (A) 79 %; Platelet Count 308 k/uL (150-450); RBC 4.62 m/uL (3.80-5.40); RDW 13.6 % (11.5-15.5); WBC 12.5 k/uL (3.8-10.6)
[2024-08-04] MEDS: SODIUM CHLORIDE 0.9% 1,000 ML IV STA ×2 (20:11→21:26)
[2024-08-04] MEDS: METOCLOPRAMIDE 5 MG/ML 2 ML VIAL IVP STA (20:11)
[2024-08-04 20:18] LABS: ALT 24 U/L (4-34); AST 27 U/L (14-36); African American GFR (CKD) >90 (>60 ml/min/1.73 sqM); Albumin 4.7 g/dL (3.5-5.0); Alkaline Phosphatase 54 U/L (38-126); Anion Gap 15 mmol/L; Blood Urea Nitrogen 8 mg/dL (7-17); Calcium 10.6 mg/dL (8.4-10.2); Carbon Dioxide 18 mmol/L (22-30); Chloride 101 mmol/L (98-107); Glucose 82 mg/dL (74-99); Non-African American GFR(CKD) >90 (>60 ml/min/1.73 sqM); Potassium 3.8 mmol/L (3.5-5.1); Sodium 134 mmol/L (137-145); Total Bilirubin 1.1 mg/dL (0.2-1.3)
[2024-08-04 20:47] LABS: Amorphous Sediment,Urine Moderate /hpf; Appearance,Urine Cloudy (Clear); Bilirubin,Urine Negative (Negative); Blood,Urine Negative (Negative); Color,Urine Yellow; Glucose,Urine (UA) Negative (Negative); Ketones,Urine 4+ (Negative); Leukocyte Esterase,Urine Negative (Negative); Mucus,Urine Many /hpf; Nitrite,Urine Negative (Negative); Protein,Urine 1+ (Negative); RBC,Urine 7 /hpf (0-5); Specific Gravity,Urine 1.027 (1.001-1.035); Squamous Epithelial Cell,Urine 15 /hpf (0-4); Urobilinogen,Urine <2.0 mg/dL (<2.0); WBC,Urine 8 /hpf (0-5)
[2024-08-04 21:03] LABS: Influenza A Not Detected (Not Detectd); Influenza B Not Detected (Not Detectd); RSV Not Detected (Not Detectd)
[2024-08-04] MEDS: diphenhydrAMINE 50 MG/ML 1 ML VIAL IVP STA (21:17)
[2024-08-04] MEDS: ONDANSETRON 4 MG/2 ML VIAL IVP STA (21:17)
[2024-08-04] MEDS: SODIUM CHLORIDE 0.9% 500 ML 500 ML IV STA (21:26)
[2024-08-04] MEDS: PYRIDOXINE 100 MG/ML 1 ML VIAL IVP STA (21:32)
[2024-08-04 22:59] VITALS: BP 101/61; PULSE 87; RESP 18; TEMP 98.6
== END 2024-08-04 23:05 | disposition home or self-care (01) ==
LOC: EC 19:28 → SUPCPDRO 19:28 → EC 23:05
DX: O99.281 Endocrine, nutritional and metabolic diseases complicating pregnancy, first trimester (principal); E86.0 Dehydration; K52.9 Noninfective gastroenteritis and colitis, unspecified; Z88.0 Allergy status to penicillin; Z3A.09 9 weeks gestation of pregnancy
CPT/HCPCS: 36415; 80053; 85025; 81001; 84702; 87636; 99284; 96374; 96375 ×2; 96361 ×3; J1200; J3415; J2765; J2405

== ENCOUNTER 2024-08-22 16:25 | Emergency (ER) | payer OTHER ==
--- NOTE | 2024-08-22 19:05 | ED ---
General Adult HPI - General Chief complaint: Nausea/Vomiting/Diarrhea Stated complaint: vomiting, 11wks preg Time Seen by Provider: 08/22/24 18:47 Source: patient Mode of arrival: ambulatory Limitations: no limitations - History of Present Illness Initial comments: Dictation was produced using [employer] dictation software. please excuse any grammatical, word or spelling errors. Chief Complaint: 28-year-old female with nausea vomiting History of Present Illness: Patient 28-year-old female presents with nausea vomiting . Patient is allegedly 11 weeks . She follows up with top lift scourer, Dr. Flores. Patient states that no complications noted with her thus far. For the last couple days she has been having sig nificant nausea vomiting that is nonbilious nonbloody. She is currently not on any medications. Does complain of some mild epigastric burning tenderness. Patient has been before and has been nauseated with previous pregnancies. She does not have any living children The ROS documented in this emergency department record has been reviewed and confirmed by me. Those systems with pertinent positive or negative responses have been documented in the HPI. All other systems are other negative and/or noncontributory. - Related Data Home Medications Medication Instructions Recorded Confirmed Omeprazole 40 mg PO DAILY 11/13/21 03/17/22 Naltrexone Microspheres [Vivitrol] 380 mg IM DIRECTED 03/16/22 03/17/22 QUEtiapine FUMARATE [SEROquel] 25 mg PO HS 03/16/22 03/17/22 Venlafaxine HCl ER [Effexor Xr] 75 mg PO DAILY 03/16/22 03/17/22 cloNIDine HCL [Catapres] 0.1 mg PO BID 03/16/22 03/17/22 haloperidoL [Haldol] 2 mg PO TID PRN 03/16/22 03/17/22 Previous Rx's Medication Instructions Recorded Metoclopramide [Reglan] 10 mg PO Q6H PRN #20 tab 03/05/22 Ondansetron Odt [Zofran Odt] 4 mg PO Q8HR PRN #10 tab 03/17/22 Metoclopramide HCl [Reglan] 10 mg PO Q6H PRN #20 tab 08/22/22 Famotidine [Pepcid] 20 mg PO BID #60 tablet 03/28/24 Omeprazole [PriLOSEC] 40 mg PO DAILY #30 cap 03/28/24 Sulfamethox-Tmp 800-160Mg [Bactrim 1 each PO Q12HR #19 tab 03/28/24 Ds] Metoclopramide [Reglan] 10 mg PO TID PRN #15 tab 08/04/24 Cephalexin [Keflex] 500 mg PO Q12HR 7 Days #14 cap 08/22/24 Doxylamine Succinate/Vit B6 1 tab PO Q8H PRN 8 Days #24 tab 08/22/24 [Diclegis Dr 10-10 mg Tablet] Allergies Allergy/AdvReac Type Severity Reaction Status Date / Time amoxicillin Allergy Rash/Hives Verified 08/22/24 16:49 Review of Systems ROS Statement: Those systems with pertinent positive or pertinent negative responses have been documented in the HPI. ROS Other: All systems not noted in ROS Statement are negative. Past Medical History Past Medical History: GERD/Reflux Additional Past Medical History / Comment(s): GERD, UTI History of Any Multi-Drug Resistant Organisms: None Reported Past Surgical History: Cholecystectomy Additional Past Surgical History / Comment(s): Cholecystectomy w/ ERCP on October 22, 2019. MRCP October 23, 2019. Ureteral stent placed for obstruction. Past Anesthesia/Blood Transfusion Reactions: No Reported Reaction Past Psychological History: Anxiety, Depression, PTSD Smoking Status: Never smoker Past Alcohol Use History: None Reported Past Drug Use History: None Reported - Past Family History Mother Family Medical History: Hypertension General Exam - General Exam Comments Initial Comments: PHYSICAL EXAM: General Impression: Alert and oriented x3, not in acute distress HEENT: Normocephalic atraumatic, extra-ocular movements intact, pupils equal and reactive to light bilaterally, mucous membranes moist. Cardiovascular: Heart regular rate and rhythm Chest: Able to complete full sentences, no retractions, no tachypnea Abdomen: abdomen soft, non-tender, non-distended, no organomegaly Musculoskeletal: Pulses present and equal in all extremities, no peripheral edema Motor: no focal deficits noted Neurological: CN II-XII grossly intact, no focal motor or sensory deficits noted Skin: Intact with no visualized rashes Psych: Normal affect and mood Limitations: no limitations Course Vital Signs 08/22/24 16:46 Temperature 97.9 F Pulse Rate 101 H Respiratory 18 Rate Blood Pressure 136/84 O2 Sat by Pulse 98 Oximetry Medical Decision Making - Medical Decision Making Was pt. sent in by a medical professional or institution (, PA, WIND OPERATIONS MANAGER, urgent care, hospital, or [place] health [facility] facility...) When possible be specific @ -No Did you speak to anyone other than the patient for history (EMS, parent, family, police, friend...)? What history was obtained from this source @ -No Did you review nursing and triage notes (agree or disagree)? Why? @ -I reviewed and agree with nursing and triage notes Were old charts reviewed (outside hosp., previous admission, EMS record, old EKG, old radiological studies, urgent care reports/EKG's, [place] health [facility] facility records)? Report findings @ -No old charts were reviewed Differential Diagnosis (chest pain, altered mental status, abdominal pain women, abdominal pain men, vaginal bleeding, musculoskeletal, weakness, fever, dyspnea, syncope, headache, dizziness, GI bleed, back pain, seizure, CVA, palpatations, mental health)? @ -Molar , nausea vomiting , starvation acidosis EKG interpreted by me (3pts min.). @ -None done X-rays interpreted by me (1pt min.). @ -None done CT interpreted by me (1pt min.). @ -None done U/S interpreted by me (1pt. min.). @ -OB ultrasound shows heart rate of 156 What testing was considered but not performed or refused? (CT, X-rays, U/S, labs)? Why? @ -None What meds were considered but not given or refused? Why? @ -None Was smoking cessation discussed for >3mins.? @ -No Were there social determinants of health that impacted care today? How? (Homelessness, low income, unemployed, alcoholism, drug addiction, transpor tation, low edu. Level, literacy, decrease access to med. care, long term, rehab)? @ -No Was there de-escalation of care discussed even if they declined (Discuss DNR or withdrawal of care, Hospice)? DNR status @ -No What co-morbidities impacted this encounter? (DM, HTN, Smoking, COPD, CAD, Cancer, CVA, ARF, Chemo, Hep., AIDS, mental health diagnosis, sleep apnea, morbid obesity)? @ -None Was patient admitted / discharged? Hospital course, mention meds given and route, prescriptions, significant lab abnormalities, going to OR and other pertinent info. @ -28-year-old female presents to the emergency department with nausea vomiting in . Stable. Patient well-appearing at the bedside. Slight leukocytosis 15.5. Metabolic panel is unremarkable unremarkable urinalysis shows 11 white blood cells however dirty catch with 20 squamous epithelial cells. 4+ ketones. Patient given IV fluids and symptomatic medications. Evaluated bedside 8:58 PM found to be stable to condition. Patient agreeable for discharge with close outpatient follow-up with top lift scourer. Did you discuss the management of the patient with other professionals (professionals i.e. , PA, WIND OPERATIONS MANAGER, lab, RT, psych nurse, social staff worker, trolley worker, teacher, training systems officer, case worker)? Give summary @ -No Was critical care preformed (if so, how long)? @ -No Undiagnosed new problem with uncertain prognosis? @ -No Drug Therapy requiring intensive monitoring for toxicity (Heparin, Nitro, Insulin, Cardizem)? @ -No Were any procedures done? @ -No Diagnosis/symptom? Acute, or Chronic, or Acute on Chronic? Uncomplicated (without systemic symptoms) or Complicated (systemic symptoms)? @ -Nausea vomiting in Side effects of treatment? @ -No Exacerbation, Progression, or Severe Exacerbation? @ -No Poses a threat to life or bodily function? How? (Chest pain, [place], [place], pneumonia, PE, COPD, DKA, ARF, appy, cholecystitis, CVA, Diverticulitis, Homicidal, Suicidal, threat to staff... and all critical care pts) @ -yes - Lab Data Result diagrams: 08/22/24 19:45 08/22/24 18:58 Lab Results 08/22/24 08/22/24 08/22/24 Range/Units 18:58 19:43 19:45 WBC 15.5 H (3.8-10.6) k/uL RBC 4.40 (3.80-5.40) m/uL Hgb 13.5 (11.4-16.0) gm/dL Hct 41.1 (34.0-46.0) % MCV 93.5 (80.0-100.0) fL MCH 30.8 (25.0-35.0) pg MCHC 32.9 (31.0-37.0) g/dL RDW 12.8 (11.5-15.5) % Plt Count 306 (150-450) k/uL MPV 7.5 Neutrophils % 78 % Lymphocytes % 14 % Monocytes % 6 % Eosinophils % 1 % Basophils % 0 % Neutrophils # 12.1 H (1.3-7.7) k/uL Lymphocytes # 2.2 (1.0-4.8) k/uL Monocytes # 0.9 (0-1.0) k/uL Eosinophils # 0.1 (0-0.7) k/uL Basophils # 0.0 (0-0.2) k/uL Sodium 134 L (137-145) mmol/L Potassium 4.4 (3.5-5.1) mmol/L Chloride 104 (98-107) mmol/L Carbon Dioxide 15 L (22-30) mmol/L Anion Gap 15 mmol/L BUN 3 L (7-17) mg/dL Creatinine 0.32 L (0.52-1.04) mg/dL Est GFR (CKD-EPI)AfAm >90 (>60 ml/min/1.73 sqM) Est GFR (CKD-EPI)NonAf >90 (>60 ml/min/1.73 sqM) Glucose 76 (74-99) mg/dL Calcium 10.8 H (8.4-10.2) mg/dL Total Bilirubin 1.2 (0.2-1.3) mg/dL AST 43 H (14-36) U/L ALT 29 (4-34) U/L Alkaline Phosphatase 51 (38-126) U/L Total Protein 8.4 H (6.3-8.2) g/dL Albumin 4.8 (3.5-5.0) g/dL HCG, Quant 82417.7 mIU/mL Urine Color Yellow Urine Appearance Cloudy H (Clear) Urine pH 6.0 (5.0-8.0) Ur Specific [place] 1.023 (1.001-1.035) Urine Protein Trace H (Negative) Urine Glucose (UA) Negative (Negative) Urine Ketones 4+ H (Negative) Urine Blood Moderate H (Negative) Urine Nitrite Negative (Negative) Urine Bilirubin Negative (Negative) Urine Urobilinogen <2.0 (<2.0) mg/dL Ur Leukocyte Esterase Trace H (Negative) Urine RBC 13 H (0-5) /hpf Urine WBC 11 H (0-5) /hpf Ur Squamous Epith Cells 20 H (0-4) /hpf Urine Bacteria Rare H (None) /hpf Urine Mucus Few H (None) /hpf Disposition Clinical Impression: Hyperemesis gravidarum Disposition: HOME SELF-CARE Instructions (If sedation given, give patient instructions): Nausea and Vomiting in (ED) Prescriptions: Doxylamine Succinate/Vit B6 [Diclegis Dr 10-10 mg Tablet] 1 tab PO Q8H PRN 8 Days #24 tab PRN Reason: Nausea And Vomiting Cephalexin [Keflex] 500 mg PO Q12HR 7 Days #14 cap Is patient prescribed a controlled substance at d/c from ED?: No Referrals: Ford Haynes MD [STAFF PHYSICIAN] - 1-2 days Time of Disposition: 20:35
[2024-08-22] MEDS: SODIUM CHLORIDE 0.9% 1,000 ML IV STA (19:46)
[2024-08-22] MEDS: METOCLOPRAMIDE 5 MG/ML 2 ML VIAL IVP STA (19:47)
[2024-08-22 19:56] LABS: ALT 29 U/L (4-34); AST 43 U/L (14-36); African American GFR (CKD) >90 (>60 ml/min/1.73 sqM); Albumin 4.8 g/dL (3.5-5.0); Alkaline Phosphatase 51 U/L (38-126); Anion Gap 15 mmol/L; Blood Urea Nitrogen 3 mg/dL (7-17); Calcium 10.8 mg/dL (8.4-10.2); Carbon Dioxide 15 mmol/L (22-30); Chloride 104 mmol/L (98-107); Glucose 76 mg/dL (74-99); Non-African American GFR(CKD) >90 (>60 ml/min/1.73 sqM); Sodium 134 mmol/L (137-145); Total Bilirubin 1.2 mg/dL (0.2-1.3); Total Protein 8.4 g/dL (6.3-8.2)
[2024-08-22 20:02] LABS: Basophils % (A) 0 %; Eosinophils # (A) 0.1 k/uL (0-0.7); Eosinophils % (A) 1 %; HCT 41.1 % (34.0-46.0); HGB 13.5 gm/dL (11.4-16.0); Lymphocytes # (A) 2.2 k/uL (1.0-4.8); Lymphocytes % (A) 14 %; MCH 30.8 pg (25.0-35.0); MCHC 32.9 g/dL (31.0-37.0); MCV 93.5 fL (80.0-100.0); Mean Platelet Volume 7.5; Monocytes # (A) 0.9 k/uL (0-1.0); Monocytes % (A) 6 %; Neutrophils # (A) 12.1 k/uL (1.3-7.7); Neutrophils % (A) 78 %; Platelet Count 306 k/uL (150-450); RDW 12.8 % (11.5-15.5); WBC 15.5 k/uL (3.8-10.6)
[2024-08-22 20:06] LABS: Appearance,Urine Cloudy (Clear); Bacteria,Urine Rare /hpf; Bilirubin,Urine Negative (Negative); Blood,Urine Moderate (Negative); Color,Urine Yellow; Glucose,Urine (UA) Negative (Negative); Ketones,Urine 4+ (Negative); Leukocyte Esterase,Urine Trace (Negative); Mucus,Urine Few /hpf; Nitrite,Urine Negative (Negative); Protein,Urine Trace (Negative); RBC,Urine 13 /hpf (0-5); Specific Gravity,Urine 1.023 (1.001-1.035); Squamous Epithelial Cell,Urine 20 /hpf (0-4); Urobilinogen,Urine <2.0 mg/dL (<2.0); WBC,Urine 11 /hpf (0-5)
--- NOTE | 2024-08-22 20:40 | US ---
EXAMINATION TYPE: Transabdominal DATE OF EXAM: 08/22/2024 8:25 PM COMPARISON: US(07/18/2024) CLINICAL INDICATION: Female, 28 years old with history of pelvic pain; TECHNIQUE: Transabdominal (TA) with grayscale and color Doppler imaging including first trimester pre gnancy. FINDINGS: EXAM MEASUREMENTS: GESTATIONAL AGE / DATING Physician Established: (11 weeks/4 days) EDC: 03/09/2025 Dates by First Scan: (6 weeks/0 days) EDC: 03/12/2025 Dates by Current Scan for: (11 weeks/5 days) EDC: 03/08/2025 MATERNAL ANATOMY Uterus: 9.3x6.2x9.1cm Right Ovary: 3.0x2.1x2.4cm Left Ovary: 3.0x1.6x1.5cm Post CDS / Adnexa: wnl Presence of free fluid: no Presence of corpus luteal cyst: ?Hypoechoic area seen within rt ovary: 1.4x1.6x1.3cm Presence of subchorionic bleed: no GESTATION / SURVEY CRL: 4.9cm (11 weeks/5 days) Gestational Sac morphology: Normal Yolk Sac (normal less than 6mm): not seen at this time Cardiac Activity/Heart Rate: 156 bpm Rhythm: Normal IUP: Viable IUP Date of LMP: 06/02/2024 Beta HcG (if available): Not available at this time IMPRESSION: Single live intrauterine with calculated ultrasound age of 11 weeks 5 days with estimated d ate of delivery of 03/08/2025. [facility], , 08/22/2024 8:38 PM
[2024-08-22 20:52] LABS: Potassium 4.4 mmol/L (3.5-5.1)
[2024-08-22 20:53] LABS: HCG,Quantitative Serum 71100.7 mIU/mL
[2024-08-22] MEDS: METOCLOPRAMIDE 10 MG TAB PO STA (21:11)
[2024-08-22 21:15] VITALS: BP 106/78; PULSE 91; RESP 16; TEMP 99.1
== END 2024-08-22 21:15 | disposition home or self-care (01) ==
LOC: EC 16:25
DX: O21.0 Mild hyperemesis gravidarum (principal); Z3A.11 11 weeks gestation of pregnancy
CPT/HCPCS: 36415; 80053; 85025; 81001; 84702; 87086; 76801; 99284; 96374; 96361; J2765

== ENCOUNTER 2024-08-28 18:27 | Observation (INO) | payer OTHER ==
[2024-08-28] MEDS ORDERED: METOCLOPRAMIDE 5 MG/ML 2 ML VIAL IVP PRN (19:08)
[2024-08-28] MEDS ORDERED: diphenhydrAMINE 50 MG/ML 1 ML VIAL IVP PRN (19:09)
[2024-08-28] MEDS: DIPHENOX-ATROP 2.5-0.025 MG 1 EACH TAB PO PRN (19:49)
[2024-08-28] MEDS: ACETAMINOPHEN TAB 325 MG TAB PO PRN (19:49)
[2024-08-28] MEDS: ONDANSETRON 4 MG/2 ML VIAL IVP PRN (19:50)
[2024-08-28] MEDS: LACTATED RINGERS 1,000 ML IV SCH (19:53)
[2024-08-28 20:01] LABS: Basophils # (A) 0.1 k/uL (0-0.2); Basophils % (A) 1 %; Eosinophils % (A) 0 %; HCT 41.6 % (34.0-46.0); HGB 13.9 gm/dL (11.4-16.0); Lymphocytes # (A) 2.2 k/uL (1.0-4.8); Lymphocytes % (A) 18 %; MCH 30.6 pg (25.0-35.0); MCHC 33.4 g/dL (31.0-37.0); MCV 91.6 fL (80.0-100.0); Mean Platelet Volume 7.9; Monocytes # (A) 0.8 k/uL (0-1.0); Monocytes % (A) 6 %; Neutrophils # (A) 8.7 k/uL (1.3-7.7); Neutrophils % (A) 73 %; Platelet Count 250 k/uL (150-450); RBC 4.54 m/uL (3.80-5.40); WBC 11.9 k/uL (3.8-10.6)
[2024-08-28 20:03] LABS: ALT 49 U/L (4-34); African American GFR (CKD) >90 (>60 ml/min/1.73 sqM); Albumin 4.4 g/dL (3.5-5.0); Anion Gap 14 mmol/L; Blood Urea Nitrogen 5 mg/dL (7-17); Calcium 10.8 mg/dL (8.4-10.2); Carbon Dioxide 15 mmol/L (22-30); Chloride 101 mmol/L (98-107); Glucose 64 mg/dL (74-99); Non-African American GFR(CKD) >90 (>60 ml/min/1.73 sqM); Sodium 130 mmol/L (137-145); Total Bilirubin 1.1 mg/dL (0.2-1.3); Total Protein 7.4 g/dL (6.3-8.2)
[2024-08-28 20:04] LABS: AST 45 U/L (14-36); Potassium 4.1 mmol/L (3.5-5.1)
[2024-08-28 20:05] LABS: Alkaline Phosphatase 48 U/L (38-126)
[2024-08-28 20:14] VITALS: RESP 16
[2024-08-28 20:43] LABS: Appearance,Urine Cloudy (Clear); Bilirubin,Urine Negative (Negative); Blood,Urine Moderate (Negative); Color,Urine Yellow; Glucose,Urine (UA) Negative (Negative); Ketones,Urine 4+ (Negative); Leukocyte Esterase,Urine Small (Negative); Mucus,Urine Occasional /hpf; Nitrite,Urine Negative (Negative); PH, Urine 5.5 (5.0-8.0); Protein,Urine 1+ (Negative); RBC,Urine 170 /hpf (0-5); Specific Gravity,Urine 1.021 (1.001-1.035); Squamous Epithelial Cell,Urine 3 /hpf (0-4); WBC,Urine 23 /hpf (0-5)
[2024-08-28] MEDS: SODIUM CHLORIDE 0.9% 500 ML 1,000 ML IV ONE (23:59)
[2024-08-29] MEDS: FAMOTIDINE 20 MG/2 ML VIAL IV SCH (09:26)
[2024-08-29] MEDS: LACTATED RINGERS 1,000 ML IV ONE (12:45)
--- NOTE | 2024-08-29 12:51 | P.HPOB ---
History of Present Illness H&P Date: 08/29/24 Chief Complaint: 12+ weeks, hyperemesis, dehydration Patient is a 28-year-old 2 para 0-0-1-0 admitted to the hospital with intractable nausea and vomiting at approximately 12+ weeks as established by last menstrual period confirmed by 10-week ultrasound. She reports she has been unable to tolerate anything solid for more than a week. heart tones have been documented and she has had a normal ultrasound in the office. There is no ongoing vaginal bleeding. She is currently tolerating liquids, but only marginally. Obstetrical history: 2 para 0-0-1-0 with 1 early elective interruption of . Current statistics are listed in history of present illness. EDC of 03/11/2025 was established by last menstrual period and confirmed by 10-week ultrasound. Gynecologic history: Unremarkable though she does have a history of chlamydia in the past though it has not been tested for yet this . Review of Systems Review of systems is confined to history of present illness. Past Medical History Past Medical History: GERD/Reflux Additional Past Medical History / Comment(s): GERD, UTI History of Any Multi-Drug Resistant Organisms: None Reported Past Surgical History: Cholecystectomy Additional Past Surgical History / Comment(s): Cholecystectomy w/ ERCP on October 22, 2019. MRCP October 23, 2019. Ureteral stent placed for obstruction. Past Anesthesia/Blood Transfusion Reactions: No Reported Reaction Past Psychological History: Anxiety, Depression, PTSD Smoking Status: Vaper Past Alcohol Use History: None Reported Past Drug Use History: Marijuana Additional Drug Use History / Comment(s): reports quitting THC 08/24/24 - Past Family History Mother Family Medical History: Hypertension Medications and Allergies Home Medications Medication Instructions Recorded Confirmed Type RX: Omeprazole 40 mg PO DAILY 11/13/21 08/28/24 History Metoclopramide [Reglan] 10 mg PO Q6H PRN #20 tab 03/05/22 08/28/24 Rx Naltrexone Microspheres [Vivitrol] 380 mg IM DIRECTED 03/16/22 08/28/24 History QUEtiapine FUMARATE [SEROquel] 25 mg PO HS 03/16/22 08/28/24 History Venlafaxine HCl ER [Effexor Xr] 75 mg PO DAILY 03/16/22 08/28/24 History cloNIDine HCL [Catapres] 0.1 mg PO BID 03/16/22 08/28/24 History haloperidoL [Haldol] 2 mg PO TID PRN 03/16/22 08/28/24 History Ondansetron Odt [Zofran Odt] 4 mg PO Q8HR PRN #10 tab 03/17/22 08/28/24 Rx Metoclopramide HCl [Reglan] 10 mg PO Q6H PRN #20 tab 08/22/22 08/28/24 Rx Famotidine [Pepcid] 20 mg PO BID #60 tablet 03/28/24 08/28/24 Rx RX: Omeprazole [PriLOSEC] 40 mg PO DAILY #30 cap 03/28/24 08/28/24 Rx Sulfamethox-Tmp 800-160Mg [Bactrim 1 each PO Q12HR #19 tab 03/28/24 08/28/24 Rx Ds] Metoclopramide [Reglan] 10 mg PO TID PRN #15 tab 08/04/24 08/28/24 Rx Cephalexin [Keflex] 500 mg PO Q12HR 7 Days #14 cap 08/22/24 08/28/24 Rx Doxylamine Succinate/Vit B6 1 tab PO Q8H PRN 8 Days #24 tab 08/22/24 08/28/24 Rx [Carinegis Dr 10-10 mg Tablet] Metoclopramide HCl [Reglan] 5 mg PO BID PRN 5 Days #10 tab 08/23/24 08/28/24 Rx Metoclopramide [Reglan] 1 tab PO DAILY 08/28/24 08/28/24 History RX: Famotidine 1 tab PO DAILY 08/28/24 08/28/24 History RX: Omeprazole 1 tab PO DAILY 08/28/24 08/28/24 History Sertraline [Zoloft] 1 tab PO DAILY 08/28/24 08/28/24 History Allergies Allergy/AdvReac Type Severity Reaction Status Date / Time amoxicillin Allergy Rash/Hives Verified 08/22/24 16:49 Exam Vital Signs Temp Pulse Pulse Resp BP Pulse Ox 08/29/24 08:00 98.4 F 77 16 106/66 99 08/29/24 00:00 98.8 F 76 16 107/67 08/28/24 20:02 98.4 F 91 16 139/85 100 Intake and Output 08/28/24 08/29/24 08/29/24 22:59 06:59 14:59 Other: # Voids 2 2 Weight 50.802 kg In general, this is a well-developed, well-nourished white female in no acute distress. Her heart has a regular rhythm and rate without murmur. Her lungs are clear to auscultation bilaterally in all solitario. Abdomen is nondistended, has normal active bowel sounds, soft, nontender, without any palpable masses, hepatosplenomegaly, or hernias. Her extremities are without any cyanosis, clubbing, or edema. She does complain of epigastric pain. Pelvic examination is deferred. Results Result Diagrams: 08/28/24:08/28/24: Abnormal Lab Results - Last 24 Hours (Table) 08/28/24 08/28/24 08/28/24 Range/Units 19:23 19:23 20:16 WBC 11.9 H (3.8-10.6) k/uL Neutrophils # 8.7 H (1.3-7.7) k/uL Sodium 130 L (137-145) mmol/L Carbon Dioxide 15 L (22-30) mmol/L BUN 5 L (7-17) mg/dL Creatinine 0.44 L (0.52-1.04) mg/dL Glucose 64 L (74-99) mg/dL Calcium 10.8 H (8.4-10.2) mg/dL AST 45 H (14-36) U/L ALT 49 H (4-34) U/L Urine Appearance Cloudy H (Clear) Urine Protein 1+ H (Negative) Urine Ketones 4+ H (Negative) Urine Blood Moderate H (Negative) Ur Leukocyte Esterase Small H (Negative) Urine RBC 170 H (0-5) /hpf Urine WBC 23 H (0-5) /hpf Urine Mucus Occasional H (None) /hpf Assessment and Plan (1) Dehydration Current Visit: Yes Status: Acute Code(s): E86.0 - DEHYDRATION SNOMED Code(s): 07713009 (2) Hyperemesis gravidarum Current Visit: Yes Status: Acute Code(s): O21.0 - MILD HYPEREMESIS GRAVIDARUM SNOMED Code(s): 89382206 Plan: Patient has been admitted for aggressive IV rehydration. She does have a history of hiatal hernia for which she takes omeprazole at home, 20 mg. Given her ongoing epigastric pain and symptoms, I will increase this to 40 mg. Additionally I will bolus her with another liter of fluid through the IV and see how she tolerates and advance diet. If she tolerates her diet, she might be discharged home tonight but more likely tomorrow morning. She has an appointment in the office tomorrow for intake and first OB visit.
[2024-08-29] MEDS: PANTOPRAZOLE 40 MG TABLET PO SCH (14:57)
[2024-08-29 16:17] VITALS: BP 127/78; PULSE 84; TEMP 98
[2024-08-29] MEDS: PROMETHAZINE SUPPOSITORY 12.5 MG SUPP RECTAL SCH (16:17)
--- NOTE | 2024-08-30 09:46 | P.DS ---
Providers Date of admission: 08/28/24 18:27 Expected date of discharge: 08/30/24 Attending physician: Zulay Garcia Primary care physician: Zulay Garcia - Discharge Diagnosis(es) (1) Dehydration Current Visit: Yes Status: Acute (2) Hyperemesis gravidarum Current Visit: Yes Status: Acute Hospital Course: The patient is a 28-year-old 2 para 0 who presented with acute dehydration and intractable nausea. She is admitted for IV hydration and antiemetic therapy. While in the hospital, it was noted that she takes Prilosec 20 mg daily for a hiatal hernia and she complained of fairly significant epigastric pain. She was started on Pepcid and her Prilosec increased to 40 mg daily. After aggressive rehydration, the patient was able to tolerate oral liquids and solids. She was discharged home on the morning of hospital day #3 in stable condition to follow-up in the office for an intake appointment this morning. She otherwise was to call for increasing symptoms or any problems that concerned her. wellbeing was documented while in the hospital. She understood her instructions and will follow-up as noted above. Discharge medications included continued vitamins if she can tolerate them. She additionally was to take Prilosec 40 mg daily and [id number] analgesic pain medications as needed. She will likely have a prescription for Zofran prescribed from the office later this morning. Procedures: #1. IV hydration #2. Antiemetic therapy #3. Treatment of gastroesophageal reflux disease Patient Condition at Discharge: Stable Plan - Discharge Summary New Discharge Prescriptions: No Action Omeprazole 40 mg PO DAILY haloperidoL [Haldol] 2 mg PO TID PRN PRN Reason: Anxiety cloNIDine HCL [Catapres] 0.1 mg PO BID Naltrexone Microspheres [Vivitrol] 380 mg IM DIRECTED Metoclopramide [Reglan] 10 mg PO TID PRN #15 tab PRN Reason: Nausea Doxylamine Succinate/Vit B6 [Diclegis Dr 10-10 mg Tablet] 1 tab PO Q8H PRN 8 Days #24 tab PRN Reason: Nausea And Vomiting Omeprazole 1 tab PO DAILY Metoclopramide [Reglan] 10 mg PO Q6H PRN #20 tab PRN Reason: Nausea And Vomiting Venlafaxine HCl ER [Effexor Xr] 75 mg PO DAILY QUEtiapine FUMARATE [SEROquel] 25 mg PO HS Ondansetron Odt [Zofran Odt] 4 mg PO Q8HR PRN #10 tab PRN Reason: Nausea Metoclopramide HCl [Reglan] 10 mg PO Q6H PRN #20 tab PRN Reason: Nausea And Vomiting Sulfamethox-Tmp 800-160Mg [Bactrim Ds] 1 each PO Q12HR #19 tab Omeprazole [PriLOSEC] 40 mg PO DAILY #30 cap Famotidine [Pepcid] 20 mg PO BID #60 tablet Cephalexin [Keflex] 500 mg PO Q12HR 7 Days #14 cap Metoclopramide HCl [Reglan] 5 mg PO BID PRN 5 Days #10 tab PRN Reason: Nausea Sertraline [Zoloft] 1 tab PO DAILY Metoclopramide [Reglan] 1 tab PO DAILY Famotidine 1 tab PO DAILY Discharge Medication List Omeprazole 40 mg PO DAILY 11/13/21 [History] Metoclopramide [Reglan] 10 mg PO Q6H PRN #20 tab 03/05/22 [Rx] Naltrexone Microspheres [Vivitrol] 380 mg IM DIRECTED 03/16/22 [History] QUEtiapine FUMARATE [SEROquel] 25 mg PO HS 03/16/22 [History] Venlafaxine HCl ER [Effexor Xr] 75 mg PO DAILY 03/16/22 [History] cloNIDine HCL [Catapres] 0.1 mg PO BID 03/16/22 [History] haloperidoL [Haldol] 2 mg PO TID PRN 03/16/22 [History] Ondansetron Odt [Zofran Odt] 4 mg PO Q8HR PRN #10 tab 03/17/22 [Rx] Metoclopramide HCl [Reglan] 10 mg PO Q6H PRN #20 tab 08/22/22 [Rx] Famotidine [Pepcid] 20 mg PO BID #60 tablet 03/28/24 [Rx] Omeprazole [PriLOSEC] 40 mg PO DAILY #30 cap 03/28/24 [Rx] Sulfamethox-Tmp 800-160Mg [Bactrim Ds] 1 each PO Q12HR #19 tab 03/28/24 [Rx] Metoclopramide [Reglan] 10 mg PO TID PRN #15 tab 08/04/24 [Rx] Cephalexin [Keflex] 500 mg PO Q12HR 7 Days #14 cap 08/22/24 [Rx] Doxylamine Succinate/Vit B6 [Diclegis Dr 10-10 mg Tablet] 1 tab PO Q8H PRN 8 Days #24 tab 08/22/24 [Rx] Metoclopramide HCl [Reglan] 5 mg PO BID PRN 5 Days #10 tab 08/23/24 [Rx] Famotidine 1 tab PO DAILY 08/28/24 [History] Metoclopramide [Reglan] 1 tab PO DAILY 08/28/24 [History] Omeprazole 1 tab PO DAILY 08/28/24 [History] Sertraline [Zoloft] 1 tab PO DAILY 08/28/24 [History] Follow up Appointment(s)/Referral(s): Ford Haynes MD [STAFF PHYSICIAN] - 1-2 Days Discharge Disposition: HOME SELF-CARE
== END 2024-08-30 09:25 | disposition home or self-care (01) ==
LOC: 4FBP 18:27 → INTOOBSV 18:27
PROVIDERS: ADMIT Obstetrics & Gynecology Obstetrics; ATTEND Obstetrics & Gynecology Obstetrics
DX: O21.1 Hyperemesis gravidarum with metabolic disturbance (principal); O99.611 Diseases of the digestive system complicating pregnancy, first trimester; K44.9 Diaphragmatic hernia without obstruction or gangrene; K21.9 Gastro-esophageal reflux disease without esophagitis; O99.331 Smoking (tobacco) complicating pregnancy, first trimester; F17.290 Nicotine dependence, other tobacco product, uncomplicated; Z3A.12 12 weeks gestation of pregnancy; Z79.899 Other long term (current) drug therapy; Z88.0 Allergy status to penicillin
CPT/HCPCS: 96376 ×2; 96361 ×2; 96374; 96375; 80053; 85025; 81001; G0378 ×2; G0379; J2405 ×3; J3490 ×2